=== PATIENT | female | born 1985 | race Caucasian/White ===

== ENCOUNTER → 2019-09-28 | Outpatient (CLI) | payer BC, SELFPAY ==
[2019-09-28 12:58] LABS: Hematocrit 39.1 % (37-47); Hemoglobin 11.9 g/dL (12.0-15.0); Mean Corp Hgb Conc 30.4 g/dL (32-36); Mean Corpuscular Hgb 27.6 pg (27.0-32.0); Mean Corpuscular Volume 90.7 fL (81-99); Mean Platelet Vol. 10.6 fl (6.2-12.0); Platelet Count 392 K/mm3 (150-450); RBC Distribution Width CV 12.6 % (11.6-14.6); RBC Distribution Width SD 41.4 fl (35.1-43.9); Red Blood Count 4.31 M/mm3 (4.2-5.4); White Blood Count 6.1 K/mm3 (4.4-11.0)
[2019-09-28 13:03] LABS: Vitamin B12 337 pg/mL (211-911); Vitamin D,25 Hydroxy 37.7 ng/mL
[2019-09-28 13:11] LABS: ALB/GLOB Ratio 0.9 RATIO (0.9-2.4); AST(SGOT) 7 U/L (15-37); Alanine Aminotransfer ALT/SGPT 15 U/L (13-56); Albumin, Serum 3.3 g/dL (3.2-5.0); Alkaline Phosphatase 72 U/L (45-117); Anion Gap 4 (5-15); BUN 14 mg/dL (7-18); BUN/Creat Ratio 21.4 RATIO (10-20); Calcium,Total 8.7 mg/dL (8.5-10.1); Chloride 107 mmol/L (98-107); Creatinine, Serum 0.65 mg/dL (0.55-1.02); EST Glomerular Filtration Rate 111 mL/min (>60); Est Glom Filt Rate - Afr Amer 134 mL/min (>60); Globulin 3.7 g/dL (2.2-4.2); Glucose 77 mg/dL (74-106); Potassium 4.6 mmol/L (3.5-5.1); Sodium Level 140 mmol/L (136-145); Thyroid Stim Hormone (TSH) 1.33 uIU/mL (0.358-3.74)
== END | disposition home or self-care (01) ==
LOC: MFPLAB 10:05
PROVIDERS: PCP Family Medicine; Referring Provider Family Medicine; Visit Provider Family Medicine
DX: R10.9 Unspecified abdominal pain (principal); R53.83 Other fatigue
CPT/HCPCS: 36415; 80053; 82306; 82607; 84443; 85027

== ENCOUNTER → 2019-10-05 | Outpatient (CLI) | payer BC, SELFPAY ==
--- NOTE | 2019-10-05 10:06 | US_ITS ---
STUDY: ABDOMINAL ULTRASOUND REASON FOR EXAM: Female, 34 years old. GENERAL ABD PAIN X 3 WK HX OF HERNIA REPAIR 25 YEARS AGO TECHNIQUE: Transabdominal ultrasound was performed with real-time and static anderson scale imaging. TECHNICAL QUALITY: Adequate. COMPARISON: None. FINDINGS: Liver: The liver measures 15.8 cm. There is normal echogenicity of the liver. The bile ducts are within normal limits. There is hepatic color flow. The direction of portal flow is hepatopetal. There is no demonstrated mass lesion. Portal vein measurement: Gallbladder: Normal distended gallbladder. The gallbladder wall measures 2.4 mm. There is a positive sonographic Knapp''s sign. There is no pericholecystic fluid. There are no gallstones. Common Bile Duct (C.B.D.): The common bile duct measures 5.4 mm. Pancreas: Normal size of the head, body and tail of the pancreas. There is normal echogenicity of the pancreas. There is no demonstrated pancreatic mass or cyst. Spleen: Normal size of the spleen. The spleen measures 10.5 cm x 4.9 cm x 4.8 cm. Right Kidney: Normal size of the right kidney. The right kidney measures 11 cm x 5.3 cm x 4.3 cm. Normal renal cortex. The right cortex measures 1.4 cm. There is no demonstrated renal mass or cyst. There is no right hydronephrosis. Left Kidney: Normal size of the left kidney. The left kidney measures 11.5 cm x 4.5 cm x 5.4 cm. Normal renal cortex. The left cortex measures 2.0 cm. There is no demonstrated renal mass or cyst. There is no left hydronephrosis. Aorta: Unremarkable I.V.C.: The IVC is patent. There is no ascites. US/Abdomen Complete IMPRESSION: Positive sonographic Knapp''s sign. Electronically Signed: Paco Cleary, at 12:45 EDT , Service support ,
== END | disposition home or self-care (01) ==
LOC: US 10:04
PROVIDERS: PCP Family Medicine; Referring Provider Family Medicine; Visit Provider Family Medicine
DX: R10.9 Unspecified abdominal pain (principal)
CPT/HCPCS: 76700

== ENCOUNTER → 2019-10-10 | Outpatient (CLI) | payer BC, SELFPAY ==
[2019-10-10 14:43] VITALS: BMI 36.9
[2019-10-10 15:43] LABS: Bacteria 0 SEEN /hpf (None Seen); Mucous, Urine 0 SEEN /hpf (<or=2+)
[2019-10-10 15:47] LABS: Color, Urine Yellow (Yellow); Glucose, Dipstick Normal (Normal); Ketone-Dipstick Negative (Negative); Leukocyte Esterase-Dipstick 25 /ul (Negative); Nitrite-Dipstick Negative (Negative); Occult Blood-Urine 250 /ul (Negative); Protein-Dipstick Negative (Negative); Urine Bilirubin Dipstick Negative (Negative); Urine Clarity Clear (Clear); Urine Urobilinogen Normal (Normal); Urine pH 6.5 (5.0 - 8.0)
[2019-10-10 16:10] LABS: Red Blood Cells-Urine 25-50 SEEN /hpf (0-5)
[2019-10-10 16:12] LABS: Squamous Epithelial Cells - UA 0-5 SEEN /hpf (5-10); White Blood Cells 0-5 SEEN /hpf (0-5)
== END | disposition home or self-care (01) ==
LOC: PAVLAB 15:21
PROVIDERS: PCP Family Medicine; Referring Provider Surgery; Visit Provider Surgery
DX: R11.0 Nausea (principal); R10.9 Unspecified abdominal pain
CPT/HCPCS: 81001; 87086

== ENCOUNTER → 2019-10-12 | Outpatient (CLI) | payer BC, SELFPAY ==
[2019-10-10 14:43] VITALS: BMI 36.9
[2019-10-17 16:56] LABS: Fats, Neutral Increased (.); Fats, Total Increased (.)
== END | disposition home or self-care (01) ==
LOC: LAB 12:24 → LABSPEC 12:27
PROVIDERS: PCP Family Medicine; Referring Provider Surgery; Visit Provider Surgery
DX: R10.9 Unspecified abdominal pain (principal); R11.0 Nausea; R19.7 Diarrhea, unspecified
CPT/HCPCS: 82274; 82705; 83630; 87177; 87209; 87493; 87506

== ENCOUNTER → 2019-10-17 | Outpatient (CLI) | payer BC, SELFPAY ==
[2019-10-10 14:43] VITALS: BMI 36.9
--- NOTE | 2019-10-17 16:39 | CT_ITS ---
STUDY: CT ABDOMEN AND PELVIS WITHOUT CONTRAST REASON FOR EXAM: Female, 34 years old. RUQ/RT FLANK PAIN X 3 WKS, NAUSEA, WORSE AFTER EATING RADIATION DOSAGE (If Supplied By Facility): CTDIvol = ( 12.83 ) mGy, DLP = ( 613.31 ) mGycm TECHNIQUE: Transaxial images were obtained from the dome of the diaphragm to the symphysis pubis without oral contrast, and without intravenous contrast. Sagittal and coronal images were reconstructed. Individualized dose optimization techniques were used for this CT. COMPARISON: Ultrasound from 10/05/2019 FINDINGS: The visualized lung bases are unremarkable. The visualized portions of the heart are within normal limits. Normal liver. Normal gallbladder and extrahepatic biliary system. Normal spleen. Normal pancreas. Normal bilateral adrenal glands. Normal right kidney. Normal left kidney. Normal visualized stomach. Normal small intestine. Normal colon. There is non-visualization of the appendix. Normal abdominal aorta. Normal inferior vena cava. Normal retroperitoneum. Normal urinary bladder. Normal abdominal wall. Normal osseous structures. CT/Abdomen/Pelvis without Cont IMPRESSION: No suspicious solid organ abnormality, specifically, no obstructive uropathy is noted. Although the appendix is not visualized, there is no CT evidence of an acute inflammatory process in the right lower quadrant. No pericolonic inflammatory stranding free fluid or adenopathy noted. Electronically Signed: Julian Xie MD at 17:08 EDT , Service support ,
== END | disposition home or self-care (01) ==
PROVIDERS: PCP Family Medicine; Referring Provider Surgery; Visit Provider Surgery
DX: R10.9 Unspecified abdominal pain (principal); R11.0 Nausea; R19.7 Diarrhea, unspecified
CPT/HCPCS: 74176

== ENCOUNTER → 2020-06-05 11:57 | Outpatient (CLI) | payer BC, SELFPAY ==
[2020-06-05 15:05] LABS: Erythrocyte Sedimentation Rate 19 mm/hr (0-30)
[2020-06-05 15:07] LABS: Absolute Lymphocyte Count 2.58 X10^3/uL (0.83-4.51); Absolute Neutrophil Count 5.2 X10^3/uL (2.0-7.7); Basophil# 0.04 X10^3/uL; Basophil% 0.5 % (0-1); Eosinophil# 0.19 X10^3/uL; Eosinophils% 2.2 % (0-5); Hematocrit 40.4 % (37-47); Hemoglobin 12.7 g/dL (12.0-15.0); Lymphocyte # 2.58 X10^3/ul (4.0); Lymphocyte % 30.2 % (19-41); Mean Corp Hgb Conc 31.4 g/dL (32-36); Mean Corpuscular Hgb 28.1 pg (27.0-32.0); Mean Corpuscular Volume 89.4 fL (81-99); Mean Platelet Vol. 10.3 fl (6.2-12.0); Monocyte# 0.53 X10^3/uL; Monocyte% 6.2 % (0-10); NRBC Flagged by Analyzer 0 % (0-5); Neutrophil # 5.18 X10^3/uL (2.7-7.7); Neutrophil % 60.7 % (47-70); Platelet Count 411 K/mm3 (150-450); RBC Distribution Width CV 12.6 % (11.6-14.6); RBC Distribution Width SD 41.3 fl (35.1-43.9); Red Blood Count 4.52 M/mm3 (4.2-5.4); White Blood Count 8.5 K/mm3 (4.4-11.0)
[2020-06-05 15:25] LABS: ALB/GLOB Ratio 0.9 RATIO (0.9-2.4); AST(SGOT) 10 U/L (15-37); Alanine Aminotransfer ALT/SGPT 23 U/L (13-56); Albumin, Serum 3.5 g/dL (3.2-5.0); Alkaline Phosphatase 78 U/L (45-117); Anion Gap 7 (5-15); BUN 11 mg/dL (7-18); BUN/Creat Ratio 15.4 RATIO (10-20); Calcium,Total 8.7 mg/dL (8.5-10.1); Chloride 104 mmol/L (98-107); Cholesterol 198 mg/dL (200); Creatinine, Serum 0.71 mg/dL (0.55-1.02); EST Glomerular Filtration Rate 100 mL/min (>60); Est Glom Filt Rate - Afr Amer 121 mL/min (>60); Globulin 3.9 g/dL (2.2-4.2); Glucose 81 mg/dL (74-106); High Density Lipoprotein 62 mg/dL; Potassium 3.7 mmol/L (3.5-5.1); Protein, Total 7.4 g/dL (6.4-8.2); Sodium Level 138 mmol/L (136-145); Triglycerides 125 mg/dL; Very Low Density Lipoprotein 25 mg/dL (5-40)
[2020-06-10 14:06] LABS: ANTINUCLEAR ANTIBODIES DIRECT Negative (Negative)
== END ==
PROVIDERS: PCP Family Medicine; Referring Provider Family Medicine; Visit Provider Family Medicine
DX: E66.9 Obesity, unspecified (principal); R59.1 Generalized enlarged lymph nodes
CPT/HCPCS: 36415; 80053; 80061; 85025; 85652; 86038; 86140

== ENCOUNTER → 2020-10-13 11:37 | Outpatient (CLI) | payer BC, SELFPAY ==
[2020-10-13 15:14] LABS: Absolute Lymphocyte Count 2.52 X10^3/uL (0.83-4.51); Absolute Neutrophil Count 3.9 X10^3/uL (2.0-7.7); Basophil# 0.06 X10^3/uL; Basophil% 0.8 % (0-1); Eosinophils% 2.8 % (0-5); Hematocrit 41.5 % (37-47); Hemoglobin 13.1 g/dL (12.0-15.0); Lymphocyte # 2.52 X10^3/ul (0.83-4.51); Lymphocyte % 34.7 % (19-41); Mean Corp Hgb Conc 31.6 g/dL (32-36); Mean Corpuscular Hgb 27.8 pg (27.0-32.0); Mean Corpuscular Volume 87.9 fL (81-99); Mean Platelet Vol. 10.2 fl (6.2-12.0); Monocyte# 0.54 X10^3/uL; Monocyte% 7.4 % (0-10); NRBC Flagged by Analyzer 0 % (0-5); Neutrophil # 3.92 X10^3/uL (2.7-7.7); Platelet Count 453 K/mm3 (150-450); RBC Distribution Width CV 12.1 % (11.6-14.6); Red Blood Count 4.72 M/mm3 (4.2-5.4); White Blood Count 7.3 K/mm3 (4.4-11.0)
[2020-10-13 15:28] LABS: Erythrocyte Sedimentation Rate 7 mm/hr (0-30)
[2020-10-13 15:45] LABS: AST(SGOT) 12 U/L (15-37); Alanine Aminotransfer ALT/SGPT 19 U/L (13-56); Albumin, Serum 3.7 g/dL (3.2-5.0); Alkaline Phosphatase 77 U/L (45-117); Anion Gap 4 (5-15); BUN 12 mg/dL (7-18); Calcium,Total 8.7 mg/dL (8.5-10.1); Chloride 106 mmol/L (98-107); Creatinine, Serum 0.75 mg/dL (0.55-1.02); EST Glomerular Filtration Rate 94 mL/min (>60); Est Glom Filt Rate - Afr Amer 113 mL/min (>60); Globulin 3.7 g/dL (2.2-4.2); Glucose 83 mg/dL (74-106); Potassium 4.1 mmol/L (3.5-5.1); Protein, Total 7.4 g/dL (6.4-8.2); Rheumatoid Factor < 10.0 IU/mL (<15); Sodium Level 138 mmol/L (136-145)
[2020-10-13 16:43] LABS: CRP > 500.00 mg/L (0.0-3.0)
[2020-10-15 14:43] LABS: ANTINUCLEAR ANTIBODIES DIRECT Negative (Negative)
== END ==
PROVIDERS: PCP Family Medicine; Visit Provider Family Medicine
DX: R79.82 Elevated C-reactive protein (CRP) (principal); R59.1 Generalized enlarged lymph nodes
CPT/HCPCS: 36415; 80053; 85025; 85652; 86038; 86140; 86431

== ENCOUNTER → 2020-10-17 13:19 | Outpatient (CLI) | payer BC, SELFPAY ==
--- NOTE | 2020-10-17 13:23 | CT_ITS ---
STUDY: CT ABDOMEN AND PELVIS WITH CONTRAST REASON FOR EXAM: Female, 35 years old. ABD PAIN RADIATION DOSAGE (If Supplied By Facility): CTDIvol = ( 11.485 ) mGy, DLP = ( 1059.56 ) mGycm TECHNIQUE: Transaxial images were obtained from the dome of the diaphragm to the symphysis pubis with oral contrast. Oral and amp; IV Gastrografin and amp; 100mL Isovue-[id number] was administered. Sagittal and coronal images were reconstructed. Individualized dose optimization techniques were used for this CT. COMPARISON: None. FINDINGS: The visualized lung bases are unremarkable. The visualized portions of the heart are within normal limits. Normal liver. Normal gallbladder and extrahepatic biliary system. Normal spleen. Normal pancreas. Normal bilateral adrenal glands. Normal right kidney. Normal left kidney. Normal visualized stomach. Normal small intestine. Normal colon. The appendix is visualized and appears normal. Normal abdominal aorta. Normal inferior vena cava. Normal retroperitoneum. Normal urinary bladder. Normal abdominal wall. Normal osseous structures. CT/Abdomen/Pelvis WITH Contrast IMPRESSION: Normal enhanced CT of the abdomen and pelvis. Electronically Signed: Dinesh Portillo MD at 15:48 EDT Tel , Service support ,
== END ==
PROVIDERS: PCP Family Medicine; Referring Provider Family Medicine; Visit Provider Family Medicine
DX: R10.9 Unspecified abdominal pain (principal)
CPT/HCPCS: 74177; Q9967; A4216

== ENCOUNTER → 2020-10-20 09:14 | Outpatient (CLI) | payer BC, SELFPAY ==
[2020-09-09 06:43] VITALS: BMI 36.9
--- NOTE | 2020-10-20 09:19 | US_ITS ---
STUDY: Soft tissue neck ULTRASOUND REASON FOR EXAM: Female, 35 years old. neck mass TECHNIQUE: Ultrasound evaluation of the soft tissue neck was performed with real-time and static anderson-scale imaging. COMPARISON: None. FINDINGS: Multiple longitudinal and transverse ultrasound images of the left supraclavicular area demonstrate multiple small normal-sized lymph nodes measuring up to 8 mm in diameter. US/Head/Neck Soft Tissue IMPRESSION: Ultrasound confirms multiple normal sized left supraclavicular lymph nodes which may be reactive. Electronically Signed: Dinesh Portillo MD at 10:50 EDT Tel , Service support ,
== END ==
PROVIDERS: PCP Family Medicine; Referring Provider Surgery; Visit Provider Surgery
DX: R22.2 Localized swelling, mass and lump, trunk (principal); R89.9 Unspecified abnormal finding in specimens from other organs, systems and tissues
CPT/HCPCS: 76536

== ENCOUNTER → 2020-10-31 09:22 | Outpatient (CLI) | payer BC, SELFPAY ==
[2020-10-21 14:53] VITALS: BMI 36.9
[2020-10-31 10:29] LABS: Color, Urine Yellow (Yellow); Glucose, Dipstick Normal (Normal); Ketone-Dipstick Negative (Negative); Leukocyte Esterase-Dipstick Negative /ul (Negative); Nitrite-Dipstick Negative (Negative); Occult Blood-Urine Negative /ul (Negative); Protein-Dipstick Negative (Negative); Urine Bilirubin Dipstick Negative (Negative); Urine Clarity Clear (Clear); Urine Urobilinogen Normal (Normal)
[2020-10-31 10:43] LABS: Protein, Urine (Random) 14.9 mg/dL (<11.9); Protein:Creat Ratio 184 mg/g CRE (0-200)
[2020-10-31 11:15] LABS: Hepatitis B Surface Antibody Reactive; Hepatitis B Surface Antigen Non-Reactive (Nonreactive); Hepatitis C Antibody Non-Reactive (Nonreactive)
[2020-11-05 11:32] LABS: CCP IgG Antibodies 5 units (0-19)
== END ==
PROVIDERS: PCP Family Medicine; Referring Provider Family Medicine; Visit Provider Internal Medicine Rheumatology
DX: I87.2 Venous insufficiency (chronic) (peripheral) (principal); R79.82 Elevated C-reactive protein (CRP)
CPT/HCPCS: 36415; 81002; 82570; 84156; 86140; 86200; 86706; 86803; 87340

== ENCOUNTER → 2021-10-05 | Outpatient (CLI) | payer BC, SELFPAY ==
[2021-10-05 18:33] LABS: Cholesterol 202 mg/dL (200); High Density Lipoprotein 45 mg/dL; Thyroid Stim Hormone (TSH) 2.04 uIU/mL (0.358-3.74); Triglycerides 178 mg/dL; Very Low Density Lipoprotein 36 mg/dL (5-40)
[2021-10-05 19:38] LABS: Hemoglobin A1c 5.4 % (3.8-5.6)
== END | disposition home or self-care (01) ==
LOC: MFPLAB 15:57
PROVIDERS: PCP Family Medicine; Visit Provider Family Medicine
DX: Z13.29 Encounter for screening for other suspected endocrine disorder (principal); Z13.220 Encounter for screening for lipoid disorders
CPT/HCPCS: 36415; 80061; 83036; 84443

== ENCOUNTER → 2022-09-22 | Outpatient (CLI) | payer BC, SELFPAY ==
[2022-09-22 16:55] LABS: Bacteria 0 SEEN /hpf (None Seen); Mucous, Urine 0 SEEN /hpf (<or=2+)
[2022-09-22 17:16] LABS: Color, Urine Yellow (Yellow); Glucose, Dipstick Normal (Normal); Ketone-Dipstick Negative (Negative); Leukocyte Esterase-Dipstick 500 /ul (Negative); Nitrite-Dipstick Negative (Negative); Occult Blood-Urine 250 /ul (Negative); Protein-Dipstick 30 mg/dl (Negative); Urine Bilirubin Dipstick Negative (Negative); Urine Clarity Sl. Cloudy (Clear); Urine Urobilinogen Normal (Normal); Urine pH 6.5 (5.0 - 8.0)
[2022-09-22 17:24] LABS: Amorphous Sediment 1+ URATE; Red Blood Cells-Urine 10-25 SEEN /hpf (0-5); Squamous Epithelial Cells - UA 0-5 SEEN /hpf (5-10); White Blood Cells 25-50 SEEN /hpf (0-5)
== END | disposition home or self-care (01) ==
PROVIDERS: PCP Family Medicine; Referring Provider Physician Assistant Surgical; Visit Provider Physician Assistant Surgical
DX: R30.0 Dysuria (principal)
CPT/HCPCS: 81001; 87077; 87086; 87088; 87186

== ENCOUNTER → 2022-12-27 | Outpatient (CLI) | payer BC, SELFPAY ==
[2022-12-27 12:23] LABS: Color, Urine Yellow (Yellow); Glucose, Dipstick Normal (Normal); Ketone-Dipstick 5 mg/dl (Negative); Leukocyte Esterase-Dipstick 100 /ul (Negative); Nitrite-Dipstick Negative (Negative); Occult Blood-Urine 150 /ul (Negative); Protein-Dipstick 30 mg/dl (Negative); Urine Bilirubin Dipstick Negative (Negative); Urine Clarity Clear (Clear); Urine Urobilinogen Normal (Normal)
[2022-12-27 12:57] LABS: White Blood Cells 25-50 SEEN /hpf (0-5)
[2022-12-27 12:58] LABS: Bacteria 1+ /hpf (None Seen); Mucous, Urine 1+ /hpf (<or=2+); Red Blood Cells-Urine 5-10 SEEN /hpf (0-5); Squamous Epithelial Cells - UA 0-5 SEEN /hpf (5-10)
== END | disposition home or self-care (01) ==
LOC: LABSPEC 12:02
PROVIDERS: PCP Family Medicine; Referring Provider Physician Assistant; Visit Provider Physician Assistant
DX: N39.0 Urinary tract infection, site not specified (principal)
CPT/HCPCS: 81001; 87086; 87088

== ENCOUNTER → 2024-01-30 | Outpatient (CLI) | payer BC, SELFPAY | END | disposition home or self-care (01) | LOC: LABSPEC 09:56 | PROVIDERS: PCP Family Medicine; Referring Provider Nurse Practitioner Family; Visit Provider Nurse Practitioner Family | DX: R30.0 Dysuria (principal) | CPT/HCPCS: 87077; 87086; 87088; 87186 ==

== ENCOUNTER → 2024-10-08 | Outpatient (CLI) | payer BC, SELFPAY | END | disposition home or self-care (01) | LOC: LABSPEC 14:00 | PROVIDERS: PCP Family Medicine; Visit Provider Physician Assistant | DX: N30.00 Acute cystitis without hematuria (principal) | CPT/HCPCS: 87077; 87086; 87088; 87186 ==

== ENCOUNTER → 2024-10-16 | Outpatient (CLI) | payer BC, SELFPAY ==
--- NOTE | 2024-10-16 13:09 | RAD_ITS ---
PROCEDURE: ACUTE ABDOMEN INC CHEST 10/16/2024 REASON FOR EXAM: RIGHT FLANK PAIN TECHNIQUE: ACUTE ABDOMEN INC CHEST, five view. COMPARISON: [employer] from the CT examination of 10/17/2020 RAD/Acute Abdomen Inc Chest IMPRESSION: The chest demonstrates clear lungs throughout. No pleural effusion or pneumoth orax is seen. The cardiomediastinal silhouette is within the normal range. A moderately large stool burden is seen. The bowel-gas pattern is otherwise un remarkable. Although limited by overlying stool, no urinary tract calculus is identified Mild degenerative changes of the spine are seen Reading Location: [place] [id number]
--- OUTSIDE RECORDS SUMMARY | 2024-10-16 22:29 | XMS RPT_ITS | CCD ---
Author Organization [facility] Inform ion Partnership [facility] Care Team Providers Care Multicultural Services Librarian Name Role Phone [place] [employer] Elzbieta K Unavailable Unavailable [place] YUSUF Elzbieta K Unavailable Unavailable Unavailable Primary Care Provider Dr. Mata Nevarez Primary Care Provider Dr. Mata Morrison Referring Provider JOCY Henry Attending Provider JOCY Wilcox Attending Provider Unavailable Primary Care Provider Unavaillynda e Unavailable Primary Care Provider UnavailDOLORES Zabala Referring Unavailable DOLORES HODGE Attending Unavailable Dr. Mata Morrison MD Primary Care Provider Dr. Mata Morrison MD Referring Provider Dat Wilcox Attending Provider Mata Morrison Referring Unavailable Mata Morrison Primary Care Unavailable Mata Mtz NP Attending Unavailable Mata Morrison Primary Care Unavailable Dat Wilcox Attending Unavailable Mata Morrison Primary Care Unavailable Mata Mtz NP Referring Unavailable Mata Mtz NP Attending Unavailable Mata Morrison Referring Unavailable Mata Morrison Primary Care Unavailable Dat Wilcox Attending Unavailable Medications Current Medications Medication Drug Class(es) Dates Sig (Normalized) Sig (Original) Ethinyl Estradiol / norgestimate (15 sources) Progestin, Estrogen Start: 03-07-2024 take 1 tablet by mouth once daily norgestimate 0.25 mg-ethinyl estradiol 35 mcg (SPRINTEC) 0.25-35 mg-mcg per tablet Indications: General counseling for prescription of oral contraceptives Take 1 tablet by mouth once daily. 28 tablet 12 03/07/2024 Active Start: 02-11-2023 End: 03-07-2024 take 1 tablet by mouth once daily norgestimate 0.25 mg-ethinyl estradiol 35 mcg (SPRINTEC) 0.25-35 mg-mcg per tablet Indications: General counseling for prescription of oral contraceptives Take 1 tablet by mouth once daily. 28 tablet 12 02/11/2023 03/07/2024 Discontinued Start: 02-11-2023 take 1 tablet by luz elena th once daily norgestimate 0.25 mg-ethinyl estradiol 35 mcg (SPRINTEC) 0.25-35 mg-mcg per tablet Indications: General counseling for prescription of oral contraceptives Take 1 tablet by mouth once daily. 28 tablet 12 02/11/2023 Active Start: 02-05-2022 End: 02-11-2023 take 1 tablet by mouth once daily norgestimate 0.25 mg-ethinyl estradiol 35 mcg (SPRINTEC) 0.25-35 mg-mcg per tablet Indications: General counseling for prescription of oral contraceptives Take 1 tablet by mouth once daily. 28 tablet 12 02/05/2022 02/11/2023 Discontinued Start: 01-01-2022 take 1 tablet by luz elena th once daily norgestimate 0.25 mg-ethinyl estradiol 35 mcg (SPRINTEC) 0.25-35 mg-mcg per tablet Indications: General counseling for prescription of oral contraceptives Take 1 tablet by mouth once daily. 28 tablet 1 01/01/2022 Active Start: 01-26-2021 End: 01-01-2022 take 1 tablet by mouth once daily norgestimate 0.25 mg-ethinyl estradiol 35 mcg (SPRINTEC) 0.25-35 mg-mcg per tablet Indications: General counseling for prescription of oral contraceptives Take 1 tablet by mouth once daily. 28 tablet 11 01/26/2021 01/01/2022 Discontinued Start: 10-10-2019 End: 10-08-2024 Norgestimate-Ethinyl Estradi ol 0.25-35 mg-mcg tablet Discontinued 1 {tbl} PO DAILY October 10, 2019 12:00am October 08, 2024 12:37pm Start: 10-10-2019 take 1 tablet by luz elena th once daily Norgestimate-Ethinyl Estradiol Active 1 TABLET PO DAILY October 10, 2019 12:00am Start: 06-21-2016 End: 07-19-2016 take 1 tablet by mouth once daily SPRINTEC 28 0.25-35 MG-MCG TABS 1 tab po daily NORGESTIMATE-ETH ESTRADIOL [id number] Elzbieta Ko [facility] Comment on above: Take 1 tablet by luz elena once daily. L.ACID/L.CASEI/B.BIF/B.AFIA/F OS (PROBIOTIC BLEND ORAL) (7 sources) L.ACID/L.CASEI/B .BIF/B.AFIA /FOS (PROBIOTIC BLEND ORAL) Take by mouth. Active L.ACID/L.CASEI/B .BIF/B.AFIA/FOS (PROBIOTIC BLEND ORAL) Take by mouth. 0 Active Comment on above: Take by mouth. nitrofurantoin, macrocrystals 25 mg / nitrofurantoin, monohydrate 75 mg oral capsule (11 sources) Nitrofuran Antibacterial Start: 025 take 1 capsule by mouth every twelve hours at mealtime Nitrofurantoin Monohyd/M-Cryst (Macrobid) 100 mg capsule Active 100 mg PO Q12H 10 5 0 October 08, 2024 12:00am October 12, 2024 12:00am must administer with a meal/food Start: 01-29-2024 End: 02-05-2024 take 1 capsule by mouth every twelve hours at mealtime Nitrofurantoin Monohyd/M-Cryst (Macrobid) 100 mg capsule Discontinued 100 mg PO Q12H 14 7 0 January 29, 2024 1:00am February 04, 2024 1:00am February 05, 2024 1:09am must administer with a meal/food Start: 12-27-2022 End: 01-01-2023 take 1 capsule by mouth every twelve hours at mealtime Nitrofurantoin Monohyd/M-Cryst (Macrobid) 100 mg capsule Discontinued 100 mg PO Q12H 10 5 0 December 27, 2022 12:00am December 31, 2022 12:00am January 01, 2023 12:25am must administer with a meal/food Start: 09-21-2022 End: 09-28-2022 take 1 capsule by mouth every twelve hours at mealtime Nitrofurantoin Monohyd/M-Cryst 100 mg capsule Discontinued 1 NMA PO Q12H 14 7 0 September 21, 2022 12:00am September 27, 2022 12:00am September 28, 2022 12:03am administer with a meal/food; swallow whole; do not open, crush, dissolve , or chew Completed/Discontinued Medications Medication Drug Class(es) Dates Sig (Normalized) Sig (Original) amoxicillin 500 mg oral capsule (2 sources) Penicillin-class Antibacterial Start: 04-15-2023 End: 04-25-2023 take 1 capsule by mouth three times daily Amoxicillin 500 mg capsule Discontinued 500 mg PO THREE TIMES A DAY 30 10 0 April 15, 2023 1:00am April 24, 2023 1:00am April 25, 2023 1:04am azithromycin 250 mg oral tablet (4 sources) Macrolide Antimicrobial Start: 03-27-2022 End: 12-27-2022 Azithromycin (Zithromax Z-Richard) 250 mg tablet Discontinued 0 PO .COMPLEX 6 0 March 27, 2022 1:00am December 27, 2022 7:41am For 250 mg dose pack: take 500 mg today (day 1), then 250 mg for 4 days (days 2-5) PO biotin 1 mg chewable tablet (6 sources) Start: 10-10-2019 End: 09-09-2020 take 1 tablet by mouth once daily Biotin 1,000 mcg tablet,chewable Discontinued 1000 ug PO DAILY October 10, 2019 12:00am September 09, 2020 6:40am BIOTIN MAXIMUM S TRENGTH 73729 MCG TABS BIOTIN [id number] Elzbieta Ko [employer] brompheniramine maleate 0.4 mg/ml / dextromethorphan hydrobromide 2 mg/ml / pseudoephedrine hydrochloride 6 mg/ml oral solution (1 source) alpha-Adrenergic Agonist, Uncompetitive R-xfkoin-U-aspartate Receptor Antagonist, Sigma-1 Agonist Start: 03-06-2019 End: 01-01-2022 take 5 mL by mouth every six hours as needed for cough and cough Xqgjlnohkkqaotv-Xfsvcrngb-KI (BROMFED DM) 2-30-10 mg/5 mL syrup Indications: Cough Take 5 mL by mouth four times daily as needed. 118 mL 0 03/06/2019 01/01/2022 Discontinued Comment on above: Take 5 mL by mouth f our times daily as needed. CALCIUM POLYCARBOPHIL TABS (2 sources) FIBER TABS 8 - 1 0 per day CALCIUM POLYCARBOPHIL TABS [id number] Elzbieta Ko CMA hydrocortisone 10 mg/ml / neomycin 3.5 mg/ml / polymyxin b 16899 unt/ml otic solution (2 sources) Aminoglycoside Antibacterial, Polymyxin-class Antibacterial, Corticosteroid Start: 01-29-2024 End: 02-08-2024 Eqfnnjow-Tidczkzri-Xj 3.5-10,000-1 mg/mL-unit/mL-% solution Discontinued 4 NMA OTIC Q8H 10 10 0 January 29, 2024 1:00am February 07, 2024 1:00am February 08, 2024 1:17am Methylcellulose (1 source) End: 01-01-2022 METHYLCELLULOSE (FIBER THERAPY LAXATIVE ORAL) Take by mouth. 0 01/01/2022 Discontinued Comment on above: Take by mouth. MULTIPLE VITAMIN (1 source) DAILY MULTIPLE V ITAMINS TABS MULTIPLE VITAMIN [id number] Elzbieta Cardonas [employer] MULTIPLE VITAMIN (1 source) DAILY MULTIPLE V ITAMINS TABS MULTIPLE VITAMIN [id number] Elzbieta Cardonas [employer] Multivitamin preparation (9 sources) Start: 10-10-2019 End: 09-09-2020 take 1 tablet by mouth once daily Multivitamin Discontinued 1 TABLET PO DAILY October 10, 2019 12:00am September 09, 2020 6:40am multivitamin (MU LTIPLE VITAMIN ORAL) MULTIPLE VITAMIN DAILY MULTIPLE VITAMINS TABS MULTIPLE VITAMIN [id number] Elzbieta Cardonas [employer] [place] Infectious Disease (24536) Active multivitamin (MU LTIPLE VITAMIN ORAL) MULTIPLE VITAMIN DAILY MULTIPLE VITAMINS TABS MULTIPLE VITAMIN [id number] Elzbieta Fry Crooks [employer]ER [place] Infectious Disease (83861) 0 Active Comment on above: MULTIPLE VITAMIN JASON LY MULTIPLE VITAMINS TABS MULTIPLE VITAMIN [id number] Elzbieta Fry Crooks [employer] [place] Infectious Disease (05054) Multivitamin tablet (2 sources) Start: 2019 End: 2020 Multivitamin tablet Discontinued 1 {tbl} PO DAILY October 10, 2019 12:00am September 09, 2020 6:40am mupirocin 0.02 mg/mg topical ointment (1 source) RNA Synthetase Inhibitor Antibacterial Start: 2018 End: 2021 mupirocin (BACTROBAN) 2 % ointment Indications: Skin infection Apply 1 application to affected area three times daily. 30 g 0 11/06/2018 01/01/2022 Discontinued Comment on above: Apply 1 application to affected area three times daily. NORGESTIMATE-ETH ESTRADIOL (1 source) Start: 2016 End: 2016 take 1 tablet by mouth once daily SPRINTEC 28 0.25-35 MG-MCG TABS 1 tab po daily NORGESTIMATE-ETH ESTRADIOL [id number] Elzbieta Ko CMA omeprazole 20 mg delayed release oral capsule (4 sources) Proton Pump Inhibitor Start: 2019 End: 2020 take 1 capsule by mouth once daily Omeprazole 20 mg capsule,delayed release(DR/EC) Discontinued 20 mg PO DAILY October 10, 2019 12:00am September 09, 2020 6:40am phenazopyridine hydrochloride 100 mg oral tablet (4 sources) Start: 2022 End: 2023 take 1 tablet by mouth three times daily at mealtime for pain Phenazopyridine (Pyridium) 100 mg tablet Discontinued 100 mg PO THREE TIMES A DAY as needed for pain 7 0 September 21, 2022 12:00am April 15, 2023 9:28am administer with a full glass of water after each meal 24 hr phentermine 7.5 mg / topiramate 46 mg extended release oral capsule (2 sources) Sympathomimetic Amine Anorectic Start: 2023 End: 2024 Phentermine-Topiramat e (Qsymia) 7.5-46 mg capsule, ER multiphase 24 hr Discontinued 1 NMA PO daily January 29, 2024 1:00am October 08, 2024 12:37pm Saccharomyces boulardii (2 sources) take 1 capsule by mouth once daily PROBIOTIC CAPS 1 po daily SACCHAROMYCES BOULARDII CAPS [id number] Elzbieta Ko [employer] take 1 capsule by mouth once jason ly PROBIOTIC CAPS 1 po daily SACCHAROMYCES HAMIDAULARDII CAPS [id number] Elzbieta Ko [employer] Problems Active Problems Problem Classification Problem Date Documented Da te Episodic/Chronic Abdominal pain (8 sources) Right upper quadrant pain; Translations: [Right upper quadrant pain] 10-21-2020 Episodic Contraceptive and procreative management (8 sources) Patient encounter status; Translations: [Encounter for other general counseling and advice on contraception] Onset: 03-07-2024 Episodic Hemorrhoids (11 sources) Internal hemorrhoids; Translations: [Other hemorrhoids] Onset: 09-25-2009 09-25-2009 Episodic Immunizations and screening for infectious disease (1 source) Encounter for screening for human papillomavirus (HPV); Translations: [Screening for HPV (human papillomavirus)] Onset: 03-07-2024 Episodic Nausea and vomiting (4 sources) Nausea; Translations: [Nausea] 10-21-2020 Episodic Other gastrointestinal disorders (4 sources) Diarrhea; Translations: [Diarrhea, unspecified] 10-21-2020 Episodic Other screening for suspected conditions (not mental disorders or infectious disease) (9 sources) Elevated C-reactive protein; Translations: [Elevated C-reactive protein (CRP)] Onset: 03-07-2024 10-21-2020 Episodic Other screening for suspected conditions (not mental disorders or infectious disease) (2 sources) No current problems or disability 08-05-2016 Other upper respiratory infections (4 sources) Upper respiratory infection; Translations: [Acute upper respiratory infection, unspecified] 03-27-2022 Episodic Residual codes; unclassified (4 sources) History of hernia repair; Translations: [Other specified postprocedural states] 10-21-2020 Episodic Residual codes; unclassified (6 sources) Family history of breast cancer; Translations: [Family history of malignant neoplasm of breast] Onset: 03-07-2024 03-07-2024 Episodic Residual codes; unclassified (1 source) Family history of malignant neoplasm of breast; Translations: [Family history of malignant neoplasm of breast] Onset: 03-07-2024 Episodic Sprains and strains (4 sources) Thumb injury ; Translations: [Strain of right thumb] 10-21-2020 Episodic Urinary tract infections (11 sources) Cystitis; Translations: [Cystitis, unspecified without hematuria] Onset: 10-11-2024 09-21-2022 Episodic Past or Other Problems Problem Classification Problem Date Documented Da te Episodic/Chronic Genitourinary symptoms and ill-defined conditions (1 source) Dysuria; Translations: [Dysuria] Onset: 02-28-2024 Episodic Nonmalignant breast conditions (5 sources) Discharge from nipple; Translations: [Nipple discharge] Onset: 01-30-2014 Resolved: 07-13-2016 07-13-2016 Episodic Other complications of (5 sources) Excessive growth affecting management of mother; Translations: [Maternal care for excessive growth, unspecified trimester, not applicable or unspecified] Onset: 12-05-2007 Resolved: 12-29-2007 12-29-2007 Episodic Other and delivery including normal (5 sources) Normal in primigravida; Translations: [Encounter for supervision of normal first , unspecified trimester] Onset: 04-11-2007 Resolved: 12-29-2007 12-29-2007 Episodic Results Test Name Value Interpretation Reference Range Facility Urine Cultureon 10-10-2024 [facility] Escherichia coli [place] Count >100,000 Escherichia coli: REACTION Ampicillin Islt TAJ 4 Ampicillin+Sulbac Islt TAJ <=2 S Cefepime Islt TAJ <=0.12 S cefTRIAXone Islt TAJ <=0.25 S Ciprofloxacin Islt TAJ <=0.06 S B-Lactamase Extended Susc Islt NEG Gentamicin Islt TAJ <=1 S levoFLOXacin Islt TAJ <=0.12 S Meropenem Islt TAJ <=0.25 S Nitrofurantoin Islt TAJ <=16 S Pip+Tazo Islt TAJ <=4 S TMP SMX Islt TAJ <=20 S Normal [facility] Comment on above: Performed By: #### M [id number] #### [facility] [address] [place], [address] Urgent Care Visit Reporton 0 10-08-2024 Urgent Care Visit Report [facility] [address], [address] [place], [place] [address] OFFICE VISIT Date of Service: 10/08/24 MR#: [id number] Acct: [id number] Name: OZIEL THOMAS Rep #: [id number] : 1985 Provider: JOCY Carter Age/Sex: 39/F Location: [facility] Status: Signed Intake Vital Signs 01/29/24 10:00 10/08/24 12:43 Height 5 ft 2 in Weight: 162 lb 182 lb BMI 29.6 BP 128/84 H 120/60 Blood Pressure Location Lt brachial Lt brachial Position Sitting Sitting Respiration 16 14 Pulse 90 68 Pulse Source Monitor Monitor Temp 98.2 F 98.4 F Temp Source Oral Pulse Oximetry (%) 98 99 Oxygen Delivery Method room air room air Intake Visit Reasons: CONCERN FOR UTI Chief Complaint: dysuria and lt ear concerns Allergies No Known Allergies Allergy (Verified 10/08/24 12:34) Medications ???Medication ???Instructions ???Recorded ???Confirmed ???Type nitrofurantoin 100 mg PO Q12H 5 days #10 caps 10/08/24 Rx monohydrate/macrocr ystals 100 mg capsule (Macrobid) PFSH Medical History UTI (urinary tract infection) Elevated C-reactive protein (CRP) Hemorrhoids Right upper quadrant abdominal pain with positive Knapp's Sign Diarrhea Nausea Abdominal pain Surgical History History of Hx of hernia repair Family History Mother Skin cancer Ovarian cancer Father Bladder cancer Social History Smoking Status: Never smoker second hand exposure: No alcohol intake: never substance use type: does not use caffeine: Yes what type of physical activity do you participate in: walking frequency: 3-4 times per week HPI HPI Chief Complaint: dysuria and lt ear concerns Details: OZIEL THOMAS, is a 39 F who presents to the office today for initial evaluation at the [facility] for approximately 1-day history of dysuria and urinary frequency with suprapubic pressure. No complaints of fever, chills, sweats, lightheadedness/diz ziness, nausea/vomiting, or chest pain/shortness of breath/dyspnea on exertion/back pain. No changes in color/ character of stool; cloudy urine. No ulns-nmh-vyfkmkb products taken to assist. No other associated symptoms and no alleviating/aggrava ting factors. ROS Const Constitutional: No other (As above) Exam Const General: cooperative, healthy appearing and no acute distress Orientation: alert, awake and oriented x3 Chest Chest palpation inspection: normal inspection of the chest Resp Effort Inspection: normal respiratory effort and able to speak in complete sentences Auscultation: Bilateral: Clear to Auscultation Cardio Palpation: normal PMI Rate: regular rate Rhythm: regular rhythm Heart Sounds: S1 normal, S2 normal, no gallops, no murmurs and no rubs Pulses: radial pulses present GI Inspection: normal to inspection Palpation: soft and tender suprapubic (Patient describes upon self-palpation) General: No CVA tenderness Skin General: no rashes or lesions noted Neuro General: patient alert, patient awake and patient oriented x3 Cognition: normal cognition Speech: speech normal Psych Appearance: grossly normal Mental Status: mental status grossly normal Mood: congruent mood Affect: normal affect Speech and Movement: speech and movement normal Attitude: cooperative Diagnoses Urinary tract infection N39.0 Assessment and Plan Assessment and Plan (1) Urinary tract infection: Status: Acute Plan: See POC results; urine sent to lab for C/S. Macrobid as prescribed today. Supportive measures as instructed today. Follow-up with PCP in 3 to 5 days should symptoms not improve, sooner should symptoms only worsen or any other concerns develop. Patient states acknowledging understanding all the above. Results POC Urinalysis Dip (Clinic) Office Urine Color STRAW Last Edit by Prachi Zamora MA on 10/08/24 12:50 Office Urine Clarity Cloudy Last Edit by Prachi Zamora MA on 10/08/24 12:50 Office Urine Glucose Negative Last Edit by Prachi Zamora MA on 10/08/24 12:50 Office Urine Ketones Negative Last Edit by Prachi Zamora MA on 10/08/24 12:50 Off Ur Spec [place] 1.005 Last Edit by Prachi Zamora MA on 10/08/24 12:50 Office Urine pH 6.5 Last Edit by Prachi Zamora MA on 10/08/24 12:50 Office Urine Bilirubin Negative Last Edit by Prachi Zamora MA on 10/08/24 12:50 Office Urine Urobilinogen 0.2 mg/dL Last Edit by Prachi Zamora MA on 10/08/24 12:50 Office Urine Blood Moderate Last Edit by Prachi Zamora MA on 10/08/24 12:50 Office Urine Blood Hemolyzed Large Last Edit by Prachi Zamora MA (more content not included)... Normal [facility] Urine cultureOrdered By: Familia Guo on 10-08-2024 Bacteria identified Cx Nom (U) Escherichia coli Abnormal [facility] CNPNon 05-21-2024 KENJI Telephone (OBGYWM) ---- OZIEL THOMAS ([id number]) 1985 F Date Time Provider Department 05/21/24 DOLORES HODGE During your visit today, we recorded the following information about you: Deisy Washington RN 05/21/2024 10:21 AM Signed ----- Message from Dolores Hodge APRN.CNP sent at 05/21/2024 7:37 AM EST ----- Please call patient Dolores Hodge APRN.CNP ----- Message ----- From: Jalyn Holland Sent: 05/21/2024 6:18 AM EST To: Dolores Hodge APRN.CNP Recently, the patient listed above had a breast imaging exam which recommended additional imaging of an abnormality for further workup. As of this date we are unable to document whether this has been completed. Please have your patient call [phone] or ext. [phone] to schedule a breast imaging exam appointment for additional evaluation. Please ensure that you have placed either an electronic or hard copy order for the additional exam recommended from the screening mammogram report. We understand that this is an inconvenience to you and greatly appreciate your cooperation. If your patient has already scheduled an appointment, please disregard this letter. Sincerely, [facility] Deisy Washington RN 05/22/2024 10:10 AM Signed Left message for patient to call office or check SHAPE message. FAHAD Escobar Trisha, RN 05/23/2024 2:27 PM Signed 3rd attempt. Patient has not read ClientShowhart message. Left message for patient to call office or check ClientShowhart message. Letter sent. Deisy Washington RN Allergies As of Date: 05/21/2024 (No Known Allergies) Date Reviewed: 03/07/2024 Reviewed by: Dolores Hodge APRN.IMPORT MANAGER - Fully Assessed Reason for Visit: Radiology Mammogram [1485] Prescriptions as of 05/23/2024 - norgestimate 0.25 mg-ethinyl estradiol 35 mcg (SPRINTEC) 0.25-35 mg-mcg per tablet Take 1 tablet by mouth once daily. - multivitamin (MULTIPLE VITAMIN ORAL) MULTIPLE VITAMIN DAILY MULTIPLE VITAMINS TABS MULTIPLE VITAMIN [id number] Elzbieta Ko [facility] Infectious Disease (90939) - L.ACID/L.CASEI/B.BI F/B.AFIA/FOS (PROBIOTIC BLEND ORAL) Take by mouth. Problem List As Of Date 05/21/2024 Noted Resolved SUPERVIS NORMAL 1ST PREG [Z34.00] 04/11/2007 12/29/2007 EXCESS FET GRTH-ANTEPART [O36.60X0] 12/05/2007 12/29/2007 Hemorrhoids, Internal [K64.8] 09/25/2009 Nipple discharge [N64.52] 01/30/2014 07/13/2016 Family history of malignant neoplasm of breast *03/07/2024 Letter Text Encounter Status:Closed by DOLORES HODGE on 05/23/24 Normal [facility] Tash 03-12-2024 CNPN Telephone (OBGYWM) ---- OZIEL THOMAS ([id number]) 1985 F Date Time Provider Department 03/12/24 JENAE ROSA OBJEANCARLOSWMarybel During your visit today, we recorded the following information about you: Allergies As of Date: 03/12/2024 (No Known Allergies) Date Reviewed: 03/07/2024 Reviewed by: Dolores Hodge APRN.IMPORT MANAGER - Fully Assessed Reason for Visit: Orders [681] Primary Visit Diagnosis:Abnormal mammogram [R92.8] Order(s):US BREAST LTD LEFT [[id number]] Order #: [id number] FUTURE ERNA DIAGNOSTIC LEFT [[id number]] Order #: [id number] FUTURE Prescriptions as of 03/12/2024 - norgestimate 0.25 mg-ethinyl estradiol 35 mcg (SPRINTEC) 0.25-35 mg-mcg per tablet Take 1 tablet by mouth once daily. - multivitamin (MULTIPLE VITAMIN ORAL) MULTIPLE VITAMIN DAILY MULTIPLE VITAMINS TABS MULTIPLE VITAMIN [id number] Elzbieta Ko [facility] Infectious Disease (16254) - L.ACID/L.CASEI/B.BI F/B.AFIA/FOS (PROBIOTIC BLEND ORAL) Take by mouth. Problem List As Of Date 03/12/2024 Noted Resolved SUPERVIS NORMAL 1ST PREG [Z34.00] 04/11/2007 12/29/2007 EXCESS FET GRTH-ANTEPART [O36.60X0] 12/05/2007 12/29/2007 Hemorrhoids, Internal [K64.8] 09/25/2009 Nipple discharge [N64.52] 01/30/2014 07/13/2016 Family history of malignant neoplasm of breast *03/07/2024 Encounter Status:Closed by JENAE ROSA on 03/12/24 Normal [facility] CNOVon 03-07-2024 CNOV Office Visit (OBGYWM) ---- THOMASOZIEL SOW ([id number]) 1985 F Date Time Provider Department 03/07/24 8:15 AM DOLORES HODGE During your visit today, we recorded the following information about you: Blood pressure Weight Height Last Period 110/64 78.5 kg 1.606 m 02/08/24 Dolores Hodge APRN.IMPORT MANAGER 03/07/2024 8:31 AM Signed Special Officer Automat offered: Patient declines. Oziel is a 38 year old who presents for an annual gynecologic exam without complaints. Reports she has noticed change to breast - thicker tissue to left breast. Menses: cycles every 30 daysand 4 days of flow. Contraception: combined hormonal contraceptives HPV vaccine: No Last Pap: 02/24/2023 abnormal, ASCUS HPV: 02/25/2023 negative History of abnormal pap: Yes Last mammogram: 2013 for nipple discharge, benign Sexually active: Yes History of STDS: None Patient concerns for STD exposure: No. Pain with intercourse: No Postcoital bleeding: No Exercise: walking OB History T2 L2 SAB0 IAB0 Ectopic0 Multiple0 Live Births2 [employer] History LMP: 02/08/2024 (Exact Date), Having periods Age at Menarche: Age at First : Age at Menopause: [employer] History Comments: Sexual Activity: Yes; Male Contraception: Pill PAST MEDICAL HISTORY Diagnosis Date Hemorrhoids Hernia of unspecified site of abdominal cavity without mention of obstruction or gangrene epigastric hernia repaired PAST SURGICAL HISTORY Procedure Laterality Date DELIVERY ONLY 12/22/07 and 2010 PAST SURGICAL HISTORY OF repair of incarcerated epigastric hernia FAMILY HISTORY Problem Relation Age of Onset Breast Cancer Mother Cancer Father Bladder cancer Diabetes Maternal Grandfather Diabetes Paternal Grandfather Heart Sister heart murmur SOCIAL HISTORY Social History Tobacco Use Smoking status: Never Passive exposure: Never Smokeless tobacco: Never Vaping Use Vaping status: Never Used Substance Use Topics Alcohol use: Yes Alcohol/week: 1.0 standard drink of alcohol Types: 1 Glasses of Wine (5oz) per week Comment: occ Drug use: No REVIEW OF SYSTEMS Abdomen: No abdominal pain, nausea, vomiting, diarrhea, or constipation. No bloating, early satiety, indigestion, or increased flatulence. Bladder: No dysuria, gross hematuria, urinary frequency, urinary urgency, or incontinence. Breast: No breast lumps, nipple d/c, overlying skin changes, redness or skin retraction. + thicker tissue to left breast Allergies and current medication updated:Yes SENSITIVE EXAM: The sensitive examination was discussed with the Patient or Patient's Authorized Snack Stewardess. As applicable, any other physician, advance practice provider, medical student, or other health professional student that will be observing or involved in the sensitive examination for educational or training purposes was discussed with the Patient or Authorized Snack Stewardess. The Patient or Authorized Snack Stewardess has agreed to proceed with the sensitive examination. (Sensitive examination includes inspection and/or palpation of the breasts, pelvis, prostate and anorectal regions). EXAM: BP 110/64 Ht 5' 3.217 (1.61m) Wt 173 lb (78.5kg) LMP 02/08/2024 BMI 30.42 kg/(m2). GENERAL: pleasant, female in no apparent distress HEENT: Normocephalic, atraumatic, mucus membranes moist, and no lesions NECK: Supple, full range of motion, no adenopathy, and thyroid normal DERMATOLOGY: Normal, without lesions, non-icteric, and non-hirsute BREAST: soft, non-tender, symmetric, no dominant mass, normal nipple-areolar complex, no lymphadenopathy, and no nipple discharge + fibrocystic to left breast CHEST: Normal inspiratory effort ABDOMEN: soft, non-tender, and no masses PELVIC: + mild erythema to superior bilateral labia majora, normal Bartholin's glands, urethra, [place]'s glands, + 3 mm raised mole to left labia majora, + nabothian cysts, good vaginal support, physiologic discharge present, normal appearing perineal body and perianal region BIMANUAL: uterus normal size, shape and consistency, no adnexal masses + tenderness to right ovary RECTOVAGINAL: deferred NEURO: alert and oriented x3,exam grossly non-focal EXTREMITIES: normal ASSESSMENT/PLAN: 1) Health maintenance: Pap/HPV up to date. Co testing in 2025. Mammogram ordered. Nutrition, exercise and routine health maintenance exams reviewed. HPV vaccine: literature provided 2) Contraception: combined hormonal contraceptives. Denies migraines with aura, VTE history or clotting disorder, hypertension, or liver issues. Does not smoke. Reviewed increased risk of blood clots, heart attack, stroke, and possibly breast cancer. 3) STD screening: Declined STD check. 4) Follow up one year or sooner as needed Encounter for screening mammogram for malignant neoplasm of breast - ICD9: (more content not included)... Normal [facility] ERNA SCREENING W TOMOon 03-07 ERNA SCREENING W ARNULFO * * *Final Report* * * DATE OF EXAM: Mar 07 2024 10:32AM [id number] - ERNA SCREENING W ARNULFO / PROCEDURE REASON: Encounter for screening mammogram for malignant neoplasm of breast * * * * Physician Interpretation * * * * RESULT: [facility] [address] [place] [address] #[id number] - ERNA SCREENING W ARNULFO HISTORY: Patient is 38 years old and is seen for screening and a palpable abnormality in the left breast. Patient states no personal history of breast cancer. Patient states no personal history of other cancers. COMPARISON STUDIES: No prior imaging studies are available for comparison. MAMMOGRAM TECHNIQUE: The study was acquired using full field digital technology and interpreted from soft copy. Digital Breast Tomosynthesis (DBT) images were obtained and used to assist in the interpretation of this examination. Computer-aided detection was utilized by the radiologist in the interpretation of this examination. MAMMOGRAM FINDINGS: The breasts are heterogeneously dense, which may obscure small masses. There are no suspicious mammographic findings to correspond with the area of palpable concern in the upper inner quadrant of the left breast. No suspicious masses, calcifications or other abnormalities are seen in the right breast. IMPRESSION: Palpable abnormality in the left breast requires additional evaluation. Diagnostic ultrasound is recommended. BI-RADS Category 0: Incomplete: Needs Additional Imaging Evaluation RISK: Based on the Tyrer-Cuzick (TC) risk assessment model, this patient has a 16.0% lifetime risk of developing breast cancer, meaning they are at average risk for developing breast cancer. However, this is only an estimate based on available history provided on the patient's questionnaire. We encourage all patients to talk with their providers about these results, further recommendations for managing breast health, and appropriate supplemental screening options if the patient has dense breast tissue. Interpreting Radiologist: Erica Adrian M.D. Electronically signed on: 03/10/2024 Retail Receiving Clerk: RENY Transcribe Date/Time: Mar 07 2024 9:48A Dictated by: ERICA ADRIAN MD This examination was interpreted and the report reviewed and electronically signed by: ERICA ADRIAN MD on Mar 10 2024 7:24AM EST [id number] Normal [facility] Urine Cultureon 02-01-2024 [facility] Staphylococcus saprophyticus [place] Count 25,000-50,000 Staphylococcus saprophyticus: REACTION cefOXitin Susc Islt Clindamycin.induced Susc Islt NEG Gentamicin Islt TAJ <=0.5 S Nitrofurantoin Islt TAJ <=16 S Oxacillin Susc Islt S Tetracycline Islt TAJ <=1 S Vancomycin Islt TAJ <=0.5 S Normal [facility] Comment on above: Performed By: #### M [id number] #### [facility] [address] [place], [place], [address] Urgent Care Visit Reporton 03-30-2023 Urgent Care Visit Report [facility] [address], [address] [place], [place] [address] OFFICE VISIT Date of Service: 01/29/24 MR#: [id number] Acct: [id number] Name: OZIEL THOMAS Rep #: [id number] : 1985 Provider: CARLYN garzon Age/Sex: 38/F Location: [facility] Status: Signed Intake Vital Signs 12/27/22 07:40 01/29/24 10:00 Height 5 ft 3 in 5 ft 2 in Weight: 162 lb BMI 29.6 BP 128/84 H Blood Pressure Location Lt brachial Position Sitting Respiration 16 Pulse 90 Pulse Source Monitor Temp 98.2 F Pulse Oximetry (%) 98 Oxygen Delivery Method room air Intake Visit Reasons: DYSURIA AND LT EAR fluid Chief Complaint: dysuria and lt ear concerns 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 Accompanied by: Self Is patient in pain?: Yes Allergies No Known Allergies Allergy (Verified 01/29/24 10:01) Medications ???Medication ???Instructions ???Recorded ???Confirmed ???Type norgestimate 0.25 mg-ethinyl 1 tab PO DAILY 10/10/19 01/29/24 History estradiol 35 mcg tablet neomycin-polymyxin- hydrocort 3.5 4 drp otic (ear) Q8H 10 days #10 mL 01/29/24 01/29/24 Rx mg/mL-10,000 unit/mL-1 % ear solution nitrofurantoin 100 mg PO Q12H 7 days #14 caps 01/29/24 01/29/24 Rx monohydrate/macrocr ystals 100 mg capsule (Macrobid) phentermine 7.5 mg-topiramate ER 1 cap PO QDAY 01/29/24 01/29/24 History 46 mg capsule,ext.release 24hr mphase (Qsymia) PFSH Medical History UTI (urinary tract infection) Elevated C-reactive protein (CRP) Hemorrhoids Right upper quadrant abdominal pain with positive Knapp's Sign Diarrhea Nausea Abdominal pain Surgical History History of Hx of hernia repair Family History Mother Skin cancer Ovarian cancer Father Bladder cancer Social History Smoking Status: Never smoker second hand exposure: No alcohol intake: never substance use type: does not use caffeine: Yes what type of physical activity do you participate in: walking frequency: 3-4 times per week HPI HPI Chief Complaint: dysuria and lt ear concerns Details: OZIEL THOMAS, is a 38 F who presents to the office today for concerns regarding dysuria and left ear fluid. She state intermittent history of ear drainage, but more than usual yesterday. She denies ear pain or other URI symptoms. ROS Const Constitutional: No body ache, chills, fatigue, fever(s), headache(s) or change in appetite Eyes Eyes: No blurry vision, change in vision, double vision, irritation, discharge, vision loss, dry eyes, bulging eyes, floaters, visual disturbances, eye pain, Light sensitivity, spots in vision, tunnel vision or other ENT ENT: Positive for ear discharge; No ear or mastoid pain, ear pressure, tinnitus, dizziness/vertigo, nosebleed/epistaxis , nasal congestion, nose pain, sinus pressure, sinus pain, nasal discharge, post nasal drip, headache(s), facial pain, dental pain, difficulty swallowing, bad breath, hoarseness, lip swelling, mouth lesions, mouth pain, neck pain, sore throat, tongue swelling or throat swelling Resp Respiratory: No cough, change in phlegm color, chest congestion, hemoptysis, pain on inspiration, shortness of breath, pain with cough, stridor or wheezing Cardio Cardiology: No chest pain at rest, chest pain with exertion, shortness of breath, dyspnea on exertion or lightheadedness Gastro GI: No abdominal pain, change in bowel habits or difficulty swallowing Genitourinary-Femal e: Positive for burning urination, urinary frequency and blood in urine; No urinary incontinence, urinary urgency or urinary hesitancy Musc Musculoskeletal: No joint pain or neck pain Skin Skin: No rash Neuro Neurology: No headache(s) or visual disturbances Psych Psychiatric: No change in appetite Endo Endocrine: No fatigue Aller/Imm Allergy/Immunologic : No lip swelling, throat swelling, tongue swelling or wheezing Exam Const General: cooperative, healthy appearing, comfortable and no acute distress Orientation: alert, awake and oriented x3 HENMT Head: normal to inspection and normocephalic Ears: hearing grossly normal bilaterally, TM's normal bilaterally and EAC abnormal (dry skin, left ear canal redness) no otic discharge Nose: external nose normal, nares normal and no nasal discharge Face and sinus: normal facial exam and sinuses nontender Mouth: oral mucosae normal, lip normal, tongue normal, oropharynx normal and moist mucous membranes Throat: posterior oropharynx normal, tonsils normal, uvula midline and no postnasal drainage Eyes General: appearance normal, both eyes and all relate (more content not included)... Normal [facility] Basophil percentageOrdered B y: Dat Guo on 12-27-2022 Basophil percentage 25-50 SEEN /hpf 0-5 [facility] Bilirubin Test strip Ql (U)O rdered By: Dat Guo on 12-27-2022 Bilirubin Ql (U) Negative Negative [facility] Culture, urineOrdered By: St barbie Guo on 12-27-2022 Bacteria identified Cx Nom (U) Positive [facility] Ketones Test strip Ql (U)Ord ered By: Dat Guo on 12-27-2022 Ketones Ql (U) 5 mg/dl Negative [facility] - Chemistry and C hemistry - challengeon 12-27-2022 Bilirubin Ql (U) Negative [facility] Glucose Ql (U) Negative [facility] Ketones Ql (U) Trace (5) [facility] Specific gravity (U) [Rel density] 1.030 [facility] Urobilinogen (U) [Mass/Vol] Negative [facility] - Hematology and Cell countson 12-27-2022 Hemoglobin Ql (U) Large [facility] - Specimen inform ationon 12-27-2022 Clarity (U) Clear [facility] Color (U) Yellow [facility] - Urinalysison Nitrite Ql (U) Negative [facility] Protein Ql (U) Negative [facility] Mucus LM Ql (Urine sed)Order ed By: Dat Guo on 12-27-2022 Mucus Ql (Urine sed) 1+ /hpf [facility] Nitrite Test strip Ql (U)Ord ered By: Dat Guo on 12-27-2022 Nitrite Ql (U) Negative Negative [facility] No Panel Informationon 12-27 Urine Leukocytes Positive [facility] Urine Non-Hemolyzed Blood [facility] Protein Test strip Ql (U)Ord ered By: Dat Guo on 12-27-2022 Protein Ql (U) 30 mg/dl Negative [facility] Squamous epithelial cells de tection in urine sediment by light microscopyOrdered By: Dat Guo on 12-27-2022 Epithelial cells.squamous LM Ql (Urine sed) 0-5 SEEN /hpf 5-10 [facility] Urine blood detectionOrdered By: Dat Guo on 12-27-2022 RBC Ql (U) 150 /ul Negative [facility] RBC Ql (U) 5-10 SEEN /hpf 0-5 [facility] Urine clarityOrdered By: Familia Guo on 12-27-2022 Clarity (U) Clear Clear [facility] Urine color determinationOrd ered By: Dat Guo on 12-27-2022 Color (U) Yellow Yellow [facility] Urine glucose detectionOrder ed By: Dat Guo on 12-27-2022 Glucose Ql (U) Normal mg/dl Normal [facility] Urine leukocyte esterase det ection by dipstickOrdered By: Dat Guo on 12-27-2022 Leukocyte esterase Test strip Ql (U) 100 /ul Negative [facility] Urine pHOrdered By: Dat lundberg on 12-27-2022 pH (U) 5.0 [pH] 5.0 - 8.0 [facility] Urine sediment bacteria coun t by microscopy (number/high power field)Ordered By: Dat Guo on 12-27-2022 Bacteria LM.HPF (Urine sed) [#/Area] 1 /[HPF] None Seen [facility] Urine specific gravity measu rementOrdered By: Dat Guo on 12-27-2022 Specific gravity (U) [Rel density] 1.020 1.002-1.030 [facility] Urobilinogen Auto test strip Ql (U)Ordered By: Dat Guo on 12-27-2022 Urobilinogen Ql (U) Normal mg/dl Normal [facility] Amorphous sediment detection in urine sediment by light microscopyOrdered By: Lawrence Yeager on 09-22-2022 Amorphous sediment LM Ql (Urine sed) 1+ URATE [facility] Basophil percentageOrdered B y: Lawrence Yeager on 09-22-2022 Basophil percentage 25-50 SEEN /hpf 0-5 [facility] Bilirubin Test strip Ql (U)O rdered By: Lawrence Yeager on 09-22-2022 Bilirubin Ql (U) Negative Negative [facility] Culture, urineOrdered By: Florentino Yeager on 09-22-2022 Bacteria identified Cx Nom (U) Presumptive E. coli [facility] Ketones Test strip Ql (U)Ord ered By: Lawrence Yeager on 09-22-2022 Ketones Ql (U) Negative Negative [facility] Mucus LM Ql (Urine sed)Order ed By: Lawrence Yeager on 09-22-2022 Mucus Ql (Urine sed) 0 SEEN /hpf [facility] Nitrite Test strip Ql (U)Ord ered By: Lawrence Yeager on 09-22-2022 Nitrite Ql (U) Negative Negative [facility] Protein Test strip Ql (U)Ord ered By: Lawrence Yeager on 09-22-2022 Protein Ql (U) 30 mg/dl Negative [facility] Squamous epithelial cells de tection in urine sediment by light microscopyOrdered By: Lawrence Yeager on 09-22-2022 Epithelial cells.squamous LM Ql (Urine sed) 0-5 SEEN /hpf 5-10 [facility] Urine blood detectionOrdered By: Lawrence Yeager on 09-22-2022 RBC Ql (U) 250 /ul Negative [facility] RBC Ql (U) 10-25 SEEN /hpf 0-5 [facility] Urine clarityOrdered By: Ajay Yeager on 09-22-2022 Clarity (U) Sl. Cloudy Clear [facility] Urine color determinationOrd ered By: Lawrence Yeager on 09-22-2022 Color (U) Yellow Yellow [facility] Urine glucose detectionOrder ed By: Lawrence Yeager on 09-22-2022 Glucose Ql (U) Normal mg/dl Normal [facility] Urine leukocyte esterase det ection by dipstickOrdered By: Lawrence Yeager on 09-22-2022 Leukocyte esterase Test strip Ql (U) 500 /ul Negative [facility] Urine pHOrdered By: Lawrence pak on 09-22-2022 pH (U) 6.5 [pH] 5.0 - 8.0 [facility] Urine sediment bacteria coun t by microscopy (number/high power field)Ordered By: Lawrence Yeager on 09-22-2022 Bacteria LM.HPF (Urine sed) [#/Area] 0 /[HPF] None Seen [facility] Urine specific gravity measu rementOrdered By: Lawrence Yeager on 09-22-2022 Specific gravity (U) [Rel density] 1.010 1.002-1.030 [facility] Urobilinogen Auto test strip Ql (U)Ordered By: Lawrence Yeager on 09-22-2022 Urobilinogen Ql (U) Normal mg/dl Normal [facility] - Chemistry and C hemistry - challengeon 09-21-2022 Bilirubin Ql (U) Negative [facility] Glucose Ql (U) Negative [facility] HCG ( test) Ql (U) Negative [facility] Ketones Ql (U) Negative [facility] pH (U) 6.5 [pH] [facility] Specific gravity (U) [Rel density] 1.005 [facility] Urobilinogen (U) [Mass/Vol] 0.1325178 mg/dL [facility] - Hematology and Cell countson 09-21-2022 Hemoglobin Ql (U) Hemolyzed [facility] - Specimen inform ationon 09-21-2022 Clarity (U) Clear [facility] Color (U) YELLOW [facility] - Urinalysison Nitrite Ql (U) Negative [facility] Protein Ql (U) Trace [facility] No Panel Informationon 09-21 Urine Leukocytes Positive [facility] Urine Non-Hemolyzed Blood Large [facility] Clinical Lists Update: 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 Mata Morrison MD Work Phone: [facility] 10-08-2024 12:43-0400 Body weight 82.[address] Mata Morrison MD Work Phone: [facility] 10-08-2024 12:43-0400 Diastolic blood pressure 60 mm[Hg] Dr. Mata Morrison MD Work Phone: [facility] 10-08-2024 12:43-0400 Heart rate 68 /min Dr. Mata Morrison MD Work Phone: [facility] 10-08-2024 12:43-0400 Respiratory rate 14 /min Dr. Mata Morrison MD Work Phone: [facility] 10-08-2024 12:43-0400 SaO2% (BldA) [Mass fraction] 99 % Dr. Mata Morrison MD Work Phone: [facility] 10-08-2024 12:43-0400 Systolic blood pressure 120 mm[Hg] Dr. Mata Morrison MD Work Phone: [facility] 03-07-2024 08:03-0500 Body height 160.6 cm Dolores Haury DISTRICT SALES LEADER.IMPORT MANAGER Work Phone: [facility] 03-07-2024 08:03-0500 Body mass index (BMI) [Ratio] 30.44 kg/m2 Dolores Haury DISTRICT SALES LEADER.IMPORT MANAGER Work Phone: [facility] 03-07-2024 08:03-0500 Body weight 78.47 kg Dolores Haury DISTRICT SALES LEADER.IMPORT MANAGER Work Phone: [facility] 03-07-2024 08:03-0500 Diastolic blood pressure 64 mm[Hg] Dolores Haury DISTRICT SALES LEADER.IMPORT MANAGER Work Phone: [facility] 03-07-2024 08:03-0500 Systolic blood pressure 110 mm[Hg] Dolores Haury DISTRICT SALES LEADER.IMPORT MANAGER Work Phone: [facility] 02-11-2023 09:40-0500 Body height 160 cm Jenae Powderhorn DISTRICT SALES LEADER.IMPORT MANAGER Work Phone: [facility] 02-11-2023 09:40-0500 Body weight 74.66 kg Jenae Powderhorn DISTRICT SALES LEADER.IMPORT MANAGER Work Phone: [facility] 02-11-2023 09:40-0500 Diastolic blood pressure 60 mm[Hg] Jenae Powderhorn DISTRICT SALES LEADER.IMPORT MANAGER Work Phone: [facility] 02-11-2023 09:40-0500 Systolic blood pressure 90 mm[Hg] 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 Work Phone: [facility] 12-27-2022 07:40-0400 Body height 160.[address] Mata Morrison Work Phone: [facility] 12-27-2022 07:40-0400 Body mass index (BMI) [Ratio] 30.1 kg/m2 Dr. Mata Morrison Work Phone: [facility] 12-27-2022 07:40-0400 Body temperature 98.2 [degF] Dr. Mata Morrison Work Phone: [facility] 12-27-2022 07:40-0400 Body weight 77.[address] Mata Morrison Work Phone: [facility] 12-27-2022 07:40-0400 Diastolic blood pressure 84 mm[Hg] Dr. Mata Morrison Work Phone: 5(824)168-769071 [place] [address] 12-27-2022 07:40-0400 Heart rate 63 /min Dr. Mata Morrison Work Phone: 0(125)[phone] [address] 12-27-2022 07:40-0400 Respiratory rate 17 /min Dr. Mata Morrison Work Phone: 8(949)187-310443 [address] 12-27-2022 07:40-0400 SaO2% (BldA) [Mass fraction] 98 % Dr. Mata Morrison Work Phone: 0(363)[phone] [place] [address] 12-27-2022 07:40-0400 Systolic blood pressure 120 mm[Hg] Dr. Mata Morrison Work Phone: 7(455)988-808071 [place] [address] 09-21-2022 12:28-0400 Body height 160.[address] Mata Morrison Work Phone: 8(589)129-617271 [place] [address] 09-21-2022 12:28-0400 Body mass index (BMI) [Ratio] 35.4 kg/m2 Dr. Mata Morrison Work Phone: 6(120)[phone] [place] [address] 09-21-2022 12:28-0400 Body temperature 97.4 [degF] Dr. Mata Morrison Work Phone: 1(779)[phone] [place] [address] 09-21-2022 12:28-0400 Body weight 90.[address] Mata Morrison Work Phone: [facility] 09-21-2022 12:28-0400 Diastolic blood pressure 80 mm[Hg] Dr. Mata Morrison Work Phone: [facility] 09-21-2022 12:28-0400 Heart rate 86 /min Dr. Mata Morrison Work Phone: [facility] 09-21-2022 12:28-0400 Respiratory rate 16 /min Dr. Mata Morrison Work Phone: [facility] 09-21-2022 12:28-0400 SaO2% (BldA) [Mass fraction] 99 % Dr. Mata Morrison Work Phone: [facility] 09-21-2022 12:28-0400 Systolic blood pressure 112 mm[Hg] Dr. Mata Morrison Work Phone: [facility] Encounters Encounter Date Encounter Type Care Provider Facility Start: 10-08-2024 End: 10-08-[address] Mata Morrison MD Work Phone: -Laboratory Specimen Start: 10-08-2024 End: 10-08-2024 Patient encounter procedure Dat SANDRA -Laboratory Specimen Work Phone: Start: 10-08-2024 End: 10-08-2024 Patient encounter procedure Dat Guo [facility] Work Phone: Start: 10-08-2024 End: 10-08-[address] Mata Morrison MD Work Phone: [facility] Start: 10-08-2024 End: 10-08-2024 ambulatory Mata Morrison Facility:[facility] Start: 05-21-2024 End: 05-23-2024 Telephone encounter Dolores Hodge APRN.IMPORT MANAGER Work Phone: OB/Gynecology Comment on above: Radiology Mammogram Start: 03-15-2024 End: 03-15-2024 ambulatory Dolores Hodge APRN.IMPORT MANAGER Work Phone: OB/Gynecology Comment on above: Breast Imaging Start: 03-15-2024 End: 03-15-2024 E-mail encounter from caregiver Dolores Hodge APRN.CNP Work Phone: OB/Gynecology Start: 03-12-2024 End: 03-12-2024 Telephone encounter Jenae Rosa APRN.IMPORT MANAGER Work Phone: OB/Gynecology Comment on above: Orders Start: 03-07-2024 End: 03-07-2024 ambulatory DOLORES AMESJENNYFER Facility:[facility] Start: 03-07-2024 End: 03-07-2024 Subsequent hospital visit by physician Screen Mammo [facility] Mammogram Comment on above: Encounter for screen ing mammogram for malignant neoplasm of breast [Z12.31] Start: 03-07-2024 End: 03-07-2024 Patient encounter procedure Dolores Hodge APRN.CNP Work Phone: OB/Gynecology Comment on above: Encounter for gyneco logical examination (general) (routine) without abnormal findings (Primary Dx); General counseling for prescription of oral contraceptives; Screening for cervical cancer; Screening for HPV (human papillomavirus); Encounter for screening mammogram for malignant neoplasm of breast; Family history of malignant neoplasm of breast Start: 03-07-2024 End: 03-07-2024 Patient encounter status Dolores Hodge APRN.CNP Work Phone: [facility] Start: 03-07-2024 End: 03-07-2024 ambulatory DOLORES KWAKUJENNYFER Facility:[facility] Start: 03-07-2024 Encounter for gynecological examination (general) (routine) without abnormal findings DOLORES HODGE [facility] Start: 01-29-2024 End: 01-30-2024 ambulatory Mata Morrison Facility:[facility] Start: 02-11-2023 End: 02-11-2023 Patient encounter procedure Jenae Rosa APRN.CNP Work Phone: OB/Gynecology Comment on above: Encounter for gyneco logical examination (general) (routine) without abnormal findings (Primary Dx); General counseling for prescription of oral contraceptives; Screening for cervical cancer; Encounter for screening for human papillomavirus (HPV) Start: 02-11-2023 End: 02-11-2023 Patient encounter status Jenae Rosa APRN.CNP Work Phone: [facility] Work Phone: Start: 12-27-2022 End: 12-27-[address] Mata Morrison Work Phone: [facility] Work Phone: Start: 12-27-2022 End: 12-27-[address] Mata Morrison Work Phone: [facility] Specimen Work Phone: Start: 12-27-2022 End: 12-27-[address] Mata Morrison Work Phone: [facility] Work Phone: Start: 09-22-2022 End: 09-22-[address] Mata Morrison Work Phone: [facility] Work Phone: Start: 09-22-2022 End: 09-22-[address] [facility] Work [facility]: Start: 09-21-2022 End: 09-21-[address] Mata Morrison Work Phone: [facility] Work Phone: Start: 01-01-2022 Refill Sona alicea MD Work Phone: OB/Gynecology Comment on above: Refill Request Procedures Date Procedure Procedure Detail Performing Clinician Start: 10-08-[address] Mata Morrison MD Work Phone: Start: 12-27-[address] Mata Morrison Work Phone: Start: 09-22-[address] Mata Morrison Work Phone: H/O: section History of C-sectio n Dr. Mata Morrison Work Phone: Comment on above: 12/14/2007, 09/30/19 11 Plan of Treatment Date Care Activity Detail Author Start: 10-06-2031 Urine microalbumin profile DTaP,Tdap,Td Vaccine (2 - Td or Tdap) [facility] Start: 02-12-2024 Screening for malign ant neoplasm of cervix Cervical Cancer Screening [facility] Start: 11-20-2023 Covid-19 Vaccine () Covid-19 Vaccine () [facility] Start: 11-20-2023 Influenza vaccination Influenza Vacc ine (#1) [facility] Start: 12-02-2022 HPV TESTING HPV TESTING [facility] Start: 12-02-2022 PAP TESTING PAP TESTING [facility] Start: 11-19-2022 Covid-19 Vaccine () Covid-19 Vaccine () [facility] Start: 11-19-2022 Influenza vaccination Influenza Vacc ine (#1) [facility] Start: 03-21-2022 Depression Assessment Depression Ass essment [facility] Start: 11-19-2021 Influenza vaccination INFLUENZA (#1) [facility] Start: 03-21-2021 DEPRESSION ASSESSMENT DEPRESSION ASS ESSMENT [facility] Start: 06-25-2020 COVID-19 VACCINE (3 - Booster for Moderna series) COVID-19 VACCINE (3 - Booster for Moderna series) [facility] Start: 08-11-2016 End: 08-11-2016 Appointment Appointment [facility] Work Phone: Start: 08-11-2016 End: 08-11-2016 Appointment Appointment [facility] Work Phone: Start: 08-05-2016 End: 08-05-2016 Appointment Appointment [facility] Work Phone: Start: 2005 Hepatitis B Vaccine (1 of 3 - 19+ 3-dose series) Hepatitis B Vaccine (1 of 3 - 19+ 3-dose series) [facility] Start: 2005 Urine microalbumin profile DTAP,TDAP,TD (1 - Tdap) [facility] Start: 2004 Anxiety Screening Anxiety Screening [facility] Start: 2004 Depression Screening Depression Scre [facility] Start: 2004 HEPATITIS C SCREENING HEPATITIS C [facility] Start: 2004 Hepatitis C screening Hepatitis C [facility] Start: 2004 HIV SCREENING HIV SCREENING [facility] Start: 2004 HIV screening HIV Screening [facility] Start: 1986 HEPATITIS B (1 of 3 - 3-dose series) HEPATITIS B (1 of 3 - 3-dose series) [facility] Start: 1986 Hepatitis B Vaccine (1 of 3 - 3-dose series) Hepatitis B Vaccine (1 of 3 - 3-dose series) [facility] End: 04-06-2025 DBT Breast - bilateral screening ERNA SCREENING [facility] Routine Encounter for screening mammogram for malignant neoplasm of breast 1 Occurrences starting 03/07/2024 until 04/06/2025 [facility] Work Phone: Comment on above: 1 Occurrences starti ng 03/07/2024 until 04/06/2025 DBT Breast - bilater al screening ERNA SCREENING [facility] Radiology Routine Encounter for screening mammogram for malignant neoplasm of breast 03/07/2024 10:32 AM EST [facility] End: 04-11-2025 MG Breast - left Diagnostic for implant ERNA DIAGNOSTIC LEFT Radiology Routine Abnormal mammogram 1 Occurrences starting 03/12/2024 until 04/11/2025 [facility] Comment on above: 1 Occurrences starti ng 03/12/2024 until 04/11/2025 PAP TEST PAP TEST Lab [facility] peter Encounter for gynecological examination (general) (routine) without abnormal findings Screening for cervical cancer Encounter for screening for human papillomavirus (HPV) 02/11/2023 10:03 AM EST [facility] Work Phone: End: 04-11-2025 US Breast - left limited US BREAST LTD LEFT Radiology Routine Abnormal mammogram 1 Occurrences starting 03/12/2024 until 04/11/2025 [facility] Work Phone: Comment on above: 1 Occurrences starti ng 03/12/2024 until 04/11/2025 [facility] Immunizations Immunization Date Immunization Notes Care Provider Omayra arriola 10-05-2021 tetanus toxoid, redu yolanda diphtheria toxoid, and acellular pertussis vaccine, adsorbed 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 Work Phone: [facility] Work Phone: 01-26-2006 influenza virus vaccine, unspecified formulation Sona Zimmer MD Work Phone: [facility] Work Phone: Payers Date Payer Category Payer Self-pay [id number] 2009 [employer] BLUE ACCE SS PPO [id number] 2009 Unknown [employer]ULIANA SANDOVAL ACCE SS PPO [id number] 2009-Present [phone] [place] [address] PPO [id number] 2009 Unknown [id number] Unknown [facility] [id number] Unknown [id number] Unknown [id number] Unknown [id number] Unknown [id number] Social History Date Type Detail Facility Start: 08-25-2010 End: 04-15-2023 Tobacco smoking status NHIS Never smoked tobacco [facility] Work Phone: Start: 08-25-2010 End: 02-11-2023 Tobacco use and exposure Smokeless tobacco non-user [facility] Work Phone: Start: 01-31-2021 End: 03-07-2024 Alcohol intake Current drinker of alcohol (finding) [facility] Start: 01-31-2021 End: 02-11-2023 Alcohol intake [facility] Start: 07-13-2016 Alcohol Comment occ [facility] Start: 1985 Sex Assigned At Not on file [facility] Start: 09-21-2022 End: 12-27-2022 Tobacco smoking status NHIS Unknown if ever smoked [facility] Start: 1985 Sex Assigned At Female [facility] Start: 02-11-2023 End: 03-07-2024 Tobacco use panel [facility] National Score (1-100), lower number is lower risk 51 [facility] NEGATED: Highlighted rowStart: NINF History of tobacco use Passive smoker [facility] Work Phone: Functional Status Date Assessment Result Facility 02-21-2014 Are you deaf, or do you have serious difficulty hearing No 02/21/2014 9:51 AM Mima Flynn MA No [facility] 02-21-2014 Are you blind, or do you have serious difficulty seeing, even when wearing glasses No 02/21/2014 9:51 AM Mima Flynn MA No [facility] 02-21-2014 Do you have serious difficulty walking or climbing stairs No 02/21/2014 9:51 AM Mima Flynn MA No [facility] 02-21-2014 Do you have difficul ty dressing or bathing No 02/21/2014 9:51 AM Mima Flynn MA No [facility] 02-21-2014 Because of a physica l, mental, or emotional condition, do you have difficulty doing errands alone such as visiting a physician's office or shopping No 02/21/2014 9:51 AM Mima Flynn MA No [facility] Mental Status Date Assessment Result Facility 02-21-2014 Because of a physica l, mental, or emotional condition, do you have serious difficulty concentrating, remembering, or making decisions No 02/21/2014 9:51 AM Mima Flynn MA No [facility] Clinical Notes 01-30-2014 to 10-08-2024 Note Date & Type Note Facility 10-08-2024 Progress note [facility] 10-08-2024 Progress note Note Date/Time October 08, 2024 12:56pm [facility] [address], [address] [place], [place] [address] OFFICE VISIT Date of Service: 10/08/24 MR#: [id number] Acct: [id number] Name: OZIEL THOMAS Rep #: [id number] : 1985 Provider: JOCY Carter Age/Sex: 39/F Location: [facility] Status: Signed Intake Vital Signs 01/29/24 10:00 10/08/24 12:43 Height 5 ft 2 in Weight: 162 lb 182 lb BMI 29.6 BP 128/84 H 120/60 Blood Pressure Location Lt brachial Lt brachial Position Sitting Sitting Respiration 16 14 Pulse 90 68 Pulse Source Monitor Monitor Temp 98.2 F 98.4 F Temp Source Oral Pulse Oximetry (%) 98 99 Oxygen Delivery Method room air room air Intake Visit Reasons: CONCERN FOR UTI Chief Complaint: dysuria and lt ear concerns Allergies No Known Allergies Allergy (Verified 10/08/24 12:34) Medications ?Medication ?Instructions ?Recorded ?Confirmed ?Type nitrofurantoin 100 mg PO Q12H 5 days #10 ca ps 10/08/24 10/08/24 Rx monohydrate/macrocrystals 100 mg capsule (Macrobid) PFSH Medical History UTI (urinary tract infection) Elevated C-reactive protein (CRP) Hemorrhoids Right upper quadrant abdominal pain with positive Knapp's Sign Diarrhea Nausea Abdominal pain Surgical History History of Hx of hernia repair Family History Mother Skin cancer Ovarian cancer Father Bladder cancer Social History Smoking Status: Never smoker second hand exposure: No alcohol intake: never substance use type: does not use caffeine: Yes what type of physical activity do you participate in: walking frequency: 3-4 times per week HPI HPI Chief Complaint: dysuria and lt ear concerns Details: OZIEL THOMAS, is a 39 F who presents to the office today for [facility] the [facility] for approximately 1-day history of dysuria and urinary frequency with suprapubic pressure. No complaints of fever, chills, sweats, lightheadedness/dizziness, nausea/vomiting, or chest pain/shortness of breath/dyspnea on exertion/back pain. No changes in color/ character of stool; cloudy urine. No ugos-bus-dumcbng products taken to assist. No other associated symptoms and no alleviating/aggravating factors. ROS Const Constitutional: No other (As above) Exam Const General: cooperative, healthy appearing and no acute distress Orientation: alert, awake and oriented x3 Chest Chest palpation & inspection: normal inspection of the chest Resp Effort & Inspection: normal respiratory effort and able to speak in complete sentences Auscultation: Bilateral: Clear to Auscultation Cardio Palpation: normal PMI Rate: regular rate Rhythm: regular rhythm Heart Sounds: S1 normal, S2 normal, no gallops, no murmurs and no rubs Pulses: radial pulses present GI Inspection: normal to inspection Palpation: soft and tender suprapubic (Patient describes upon self-palpation) General: No CVA tenderness Skin General: no rashes or lesions noted Neuro General: patient alert, patient awake and patient oriented x3 Cognition: normal cognition Speech: speech normal Psych Appearance: grossly normal Mental Status: mental status grossly normal Mood: congruent mood Affect: normal affect Speech and Movement: speech and movement normal Attitude: cooperative Diagnoses Urinary tract infection N39.0 Assessment and Plan Assessment and Plan (1) Urinary tract infection: Status: Acute Plan: See POC results; urine sent to lab for C/S. Macrobid as prescribed today. Supportive measures as instructed today. Follow-up with PCP in 3 to 5 days should symptoms not improve, sooner should symptoms only worsen or any other concerns develop. Patient states acknowledging understanding all the above. Results POC Urinalysis Dip (Clinic) Office Urine Color STRAW Last Edit by Prachi Zamora MA on 10/08/24 12:50 Office Urine Clarity Cloudy Last Edit by Prachi Zamora MA on 10/08/24 12:5 0 Office Urine Glucose Negative Last Edit by Prachi Zamora MA on 10/08/24 12 :50 Office Urine Ketones Negative Last Edit by Prachi Zamora MA on 10/08/24 12 :50 Off Ur Spec [place] 1.005 Last Edit by Prachi Zamora MA on 10/08/24 12:50 Office Urine pH 6.5 Last Edit by Prachi Zamora MA on 10/08/24 12:50 Office Urine Bilirubin Negative Last Edit by Prachi Zamora MA on 10/08/24 12:50 Office Urine Urobilinogen 0.2 mg/dL Last Edit by Prachi Zamora MA on 10/08 12:50 Office Urine Blood Moderate Last Edit by Prachi Zamora MA on 10/08/24 12:5 0 Office Urine Blood Hemolyzed Large Last Edit by Prachi Zamora MA on 12:50 Office Urine Protein Trace Last Edit by Prachi Zamora MA on 10/08/24 12:50 Office Urine Nitrate Negative Last Edit by Prachi Zamora MA on 10/08/24 12 :50 Off Ur Leukocytes Positive Last Edit by Prachi Zamora MA on 10/08/24 12:50 Coding Level of Care Code Off vis,est,level 3 Assessment and Plan Assessment and Plan Orders: Orders POC Urinalysis Dip (Clinic) Today N30.00 - Acute cystitis without hematuria Culture, Urine Today N30.00 - Acute cystitis without hematuria Medications: New nitrofurantoin monohyd/m-cryst 100 mg (Macrobid) must administer with a meal/food 100 mg PO Q12H 5 days 10 caps 0RF 10/08/24 1256 <Electronically signed by Dat SANDRA> Date _ Dat Murillo Signature: Date (if applicable) CC: ~ [facility] Work Phone: [phone] Telephone encounter Note* Telephone Encounter - Deisy Washington RN - 05/23/2024 2:22 PM EST 3rd attempt. Patient has not read mychart message. Left message for patient to call office or checkmychart message. Letter sent. Deisy Washington RN [facility]03-05-2025 Miscellaneous Notes* Telephone Encounter - Deisy Washington RN - 05/23/2024 2:22 PM EST 3rd attempt. Patient has not read mychart message. Left message for patient to call office or checkmychart message. Letter sent. Deisy Washington RN * Telephone Encounter - Deisy Washington RN - 05/22/2024 10:09 AM EST Left message for patient to call office or check mychart message. Deisy Washington RN * Telephone Encounter - Deisy Washington RN - 05/21/2024 10:21 AM EST ----- Message from Dolores Hodge APRN.CNP sent at 05/21/2024 7:37 AM EST ----- Please call patient Dolores Hodge APRN.CNP ----- Message ----- From: Jalyn Holland Sent: 05/21/2024 6:18 AM EST To: Dolores Hodge APRN.CNP Recently, the patient listed above had a breast imaging exam which recommended additional imaging of an abnormality for further workup. As of this date we are unable to document whether this has beencompleted. Please have your patient call [phone] or ext. [phone] to schedule a breast imaging exam appointment for additional evaluation. Please ensure that you have placed either an electronic or hard copy order for the additional exam recommended from the screening mammogram report. We understand that this is an inconvenience to you and greatly appreciate your cooperation. If your patient has already scheduled an appointment, please disregard this letter. Sincerely, [facility] Breast Imaging [facility] Telephone encounter Note * Telephone Encounter - Deisy Washington RN - 05/22/2024 10:09 AM EST Left message for patient to call office or check ClientShowhart message. Deisy Washington RN [facility]03-03-2025 Telephone encounter Note* Telephone Encounter - Deisy Washington RN - 05/21/2024 10:21 AM EST ----- Message from Dolores Hodge APRN.CNP sent at 05/21/2024 7:37 AM EST ----- Please call patient Dolores Hodge APRN.CNP ----- Message ----- From: Jalyn Holland Sent: 05/21/2024 6:18 AM EST To: Dolores Hogde APRN.CNP Recently, the patient listed above had a breast imaging exam which recommended additional imaging of an abnormality for further workup. As of this date we are unable to document whether this has beencompleted. Please have your patient call [phone] or ext. [phone] to schedule a breast imaging exam appointment for additional evaluation. Please ensure that you have placed either an electronic or hard copy order for the additional exam recommended from the screening mammogram report. We understand that this is an inconvenience to you and greatly appreciate your cooperation. If your patient has already scheduled an appointment, please disregard this letter. Sincerely, [facility] Breast Imaging [facility]12-18-2024 History of Present illness Narrative* Catie Hamm Mammo Tech - 03/07/2024 10:10 AM EST Radiology Service Progress Note PATIENT NAME: Oziel Thomas DATE OF SERVICE: March 07, 2024 TIME: 9:47 AM PATIENT IDENTITY VERIFICATION COMPLETED USING TWO (2) IDENTIFIERS: Name and Date of confirmedby patient verbally. FALL SCREENING: Has the patient had 2 falls in the last year or 1 fall with injury or currently using an Ambulatory Assistive Device (Walker, Cane, Wheelchair, Crutches, etc.)? No PATIENT GENDER DATA: Female. status: : No status: NO. PATIENT RELEVANT IMPLANT DATA REVIEWED: Not Applicable PATIENT PRESENTS WITH AN IMPLANTABLE OR ATTACHED AIRCRAFT MAGNETO MECHANIC: No RADIOLOGY DEPARTMENT: Mammography PERIPHERAL IV DATA: Not applicable SIGNED BY: Trisha Rob March 07, 2024 9:47 AM documented in [facility]Del[facility]12-[facility]24 NoteHNO ID: [id number] Author: CATIE HAMM Mammo Tech Service: ? Author Type: Secretary Bookkeeper Type: Progress Notes Filed: 03/07/2024 09:47 Note Text: Radiology Service Progress Note PATIENT NAME: Oziel Thomas DATE OF SERVICE: March 07, 2024 TIME: 9:47 AM PATIENT IDENTITY VERIFICATION COMPLETED USING TWO (2) IDENTIFIERS: Name and Date of confirmed by patient verbally. FALL SCREENING: Has the patient had 2 falls in the last year or 1 fall with injury or currently using an Ambulatory Assistive Device (Walker, Cane, Wheelchair, Crutches, etc.)? No PATIENT GENDER DATA: Female. status: : No status: NO. PATIENT RELEVANT IMPLANT DATA REVIEWED: Not Applicable PATIENT PRESENTS WITH AN IMPLANTABLE OR ATTACHED AIRCRAFT MAGNETO MECHANIC: No RADIOLOGY DEPARTMENT: Mammography PERIPHERAL IV DATA: Not applicable SIGNED BY: Catie Hamm Janeeva March 07, 2024 9:47 [facility]12-18-2024 Instructions* Patient Instructions* Dolores Hodge APRN.CNP - 03/07/2024 8:14 AM EST To schedule an appointment please either: Use the [place] Scheduling Ticket you may receive OR Call [phone], Option 2 to schedule. For information pertaining to genetics services at the [facility], you can visit us online [email or web address]. If you do not have access to information online, please contact us at the number above and we can send you information. A 3-dose schedule is recommended for people who get the first dose on or after their 15th birthday,and for people with certain immunocompromising conditions. In a 3-dose series, the second dose should be given 1-2 months after the first dose, and the third dose should be given 6 months after the first dose (0, 1-2, 6-month schedule). The minimum intervals are 4 weeks between the first and second dose, 12 weeks between the second and third doses, and 5 months between the first and third doses. If a vaccine dose is administered after a shorter interval, it should be re-administered after another minimum interval has elapsed sincethe most recent dose. If the vaccination schedule is interrupted, vaccine doses do not need to be repeated (no maximum interval). documented in [facility] encounterDel[facility]12-18-2024 NoteHNO ID: [id number] Author: DOLORES HODGE APRN.CNP Service: ? Author Type: Nurse Practitioner Type: Progress Notes Filed: 03/07/2024 08:31 Note Text: Special Officer Automat offered: Patient declines. Oziel is a 38 year old who presents for an annual gynecologic exam without complaints. Reports she has noticed change to breast - thicker tissue to left breast. Menses: cycles every 30 daysand 4 days of flow. Contraception: combined hormonal contraceptives HPV vaccine: No Last Pap: 02/24/2023 abnormal, ASCUS HPV: 02/25/2023 negative History of abnormal pap: Yes Last mammogram: 2013 for nipple discharge, benign Sexually active: Yes History of STDS: None Patient concerns for STD exposure: No. Pain with intercourse: No Postcoital bleeding: No Exercise: walking OB History T2 L2 SAB0 IAB0 Ectopic0 Multiple0 Live Births2 Local [employer] History LMP: 02/08/2024 (Exact Date), Having periods Age at Menarche: Age at First : Age at Menopause: [employer] History Comments: Sexual Activity: Yes; Male Contraception: Pill PAST MEDICAL HISTORY Diagnosis Date Hemorrhoids Hernia of unspecified site of abdominal cavity without mention of obstruction or gangrene epigastric hernia repaired PAST SURGICAL HISTORY Procedure Laterality Date DELIVERY ONLY 12/22/07 and 2010 PAST SURGICAL HISTORY OF repair of incarcerated epigastric hernia FAMILY HISTORY Problem Relation Age of Onset Breast Cancer Mother Cancer Father Bladder cancer Diabetes Maternal Grandfather Diabetes Paternal Grandfather Heart Sister heart murmur SOCIAL HISTORY Social History Tobacco Use Smoking status: Never Passive exposure: Never Smokeless tobacco: Never Vaping Use Vaping status: Never Used Substance Use Topics Alcohol use: Yes Alcohol/week: 1.0 standard drink of alcohol Types: 1 Glasses of Wine (5oz) per week Comment: occ Drug use: No REVIEW OF SYSTEMS Abdomen: No abdominal pain, nausea, vomiting, diarrhea, or constipation. No bloating, early satiety, indigestion, or increased flatulence. Bladder: No dysuria, gross hematuria, urinary frequency, urinary urgency, or incontinence. Breast: No breast lumps, nipple d/c, overlying skin changes, redness or skin retraction. + thicker tissue to left breast Allergies and current medication updated:Yes SENSITIVE EXAM: The sensitive examination was discussed with the Patient or Patient's Authorized Snack Stewardess. As applicable, any other physician, advance practice provider, medical student, or other health professional student that will be observing or involved in the sensitive examination for educational or training purposes was discussed with the Patient or Authorized Snack Stewardess. The Patient or Authorized Snack Stewardess has agreed to proceed with the sensitive examination. (Sensitive examination includes inspection and/or palpation of the breasts, pelvis, prostate and anorectal regions). EXAM: BP 110/64 Ht 5' 3.217 (1.61m) Wt 173 lb (78.5kg) LMP 02/08/2024 BMI 30.42 kg/(m2). GENERAL: pleasant, female in no apparent distress HEENT: Normocephalic, atraumatic, mucus membranes moist, and no lesions NECK: Supple, full range of motion, no adenopathy, and thyroid normal DERMATOLOGY: Normal, without lesions, non-icteric, and non-hirsute BREAST: soft, non-tender, symmetric, no dominant mass, normal nipple-areolar complex, no lymphadenopathy, and no nipple discharge + fibrocystic to left breast CHEST: Normal inspiratory effort ABDOMEN: soft, non-tender, and no masses PELVIC: + mild erythema to superior bilateral labia majora, normal Bartholin's glands, urethra, [place]'s glands, + 3 mm raised mole to left labia majora, + nabothian cysts, good vaginal support, physiologic discharge present, normal appearing perineal body and perianal region BIMANUAL: uterus normal size, shape and consistency, no adnexal masses + tenderness to right ovary RECTOVAGINAL: deferred NEURO: alert and oriented x3,exam grossly non-focal EXTREMITIES: normal ASSESSMENT/PLAN: 1) Health maintenance: Pap/HPV up to date. Co testing in 2025. Mammogram ordered. Nutrition, exercise and routine health maintenance exams reviewed. HPV vaccine: literature provided 2) Contraception: combined hormonal contraceptives. Denies migraines with aura, VTE history or clotting disorder, hypertension, or liver issues. Does not smoke. Reviewed increased risk of blood clots, heart attack, stroke, and possibly breast cancer. 3) STD screening: Declined STD check. 4) Follow up one year or sooner as needed Encounter for screening mammogram for malignant neoplasm of breast - ICD9: V76.12, ICD10: Z12.31 - Left breast palpates as fibrocystic - Reviewed aggravating and relieving factors - Recommend early screening mammograms due to family history - Check with insurance to verify coverage Family history of malignant neoplasm o (more content not included)...[facility]12-18-2024 History of Present illness Narrative* Dolores Hodge APRN.LAILA - 03/07/2024 7:59 AM EST Special Officer Automat offered: Patient declines. Oziel is a 38 year old who presents for an annual gynecologic exam without complaints. Reports she has noticed change to breast - thicker tissue to left breast. Menses: cycles every 30 daysand 4 days of flow. Contraception: combined hormonal contraceptives HPV vaccine: No Last Pap: 02/24/2023 abnormal, ASCUS HPV: 02/25/2023 negative History of abnormal pap: Yes Last mammogram: 2013 for nipple discharge, benign Sexually active: Yes History of STDS: None Patient concerns for STD exposure: No. Pain with intercourse: No Postcoital bleeding: No Exercise: walking OB History T2 L2 SAB0 IAB0 Ectopic0 Multiple0 Live Births2 Local [employer] History LMP: 02/08/2024 (Exact Date), Having periods Age at Menarche: Age at First : Age at Menopause: [employer] History Comments: Sexual Activity: Yes; Male Contraception: Pill PAST MEDICAL HISTORY Diagnosis Date Hemorrhoids Hernia of unspecified site of abdominal cavity without mention of obstruction or gangrene epigastric hernia repaired PAST SURGICAL HISTORY Procedure Laterality Date DELIVERY ONLY 12/22/07 and 2010 PAST SURGICAL HISTORY OF repair of incarcerated epigastric hernia FAMILY HISTORY Problem Relation Age of Onset Breast Cancer Mother Cancer Father Bladder cancer Diabetes Maternal Grandfather Diabetes Paternal Grandfather Heart Sister heart murmur SOCIAL HISTORY Social History Tobacco Use Smoking status: Never Passive exposure: Never Smokeless tobacco: Never Vaping Use Vaping status: Never Used Substance Use Topics Alcohol use: Yes Alcohol/week: 1.0 standard drink of alcohol Types: 1 Glasses of Wine (5oz) per week Comment: occ Drug use: No REVIEW OF SYSTEMS Abdomen: No abdominal pain, nausea, vomiting, diarrhea, or constipation. No bloating, early satiety, indigestion, or increased flatulence. Bladder: No dysuria, gross hematuria, urinary frequency, urinary urgency, or incontinence. Breast: No breast lumps, nipple d/c, overlying skin changes, redness or skin retraction. + thicker tissue to left breast Allergies and current medication updated:Yes SENSITIVE EXAM: The sensitive examination was discussed with the Patient or Patient's Authorized Snack Stewardess. As applicable, any other physician, advance practice provider, medical student, or other health professional student that will be observing or involved in the sensitive examination for educational or training purposes was discussed with the Patient or Authorized Snack Stewardess. The Patient or Authorized Snack Stewardess has agreed to proceed with the sensitive examination. (Sensitive examination includes inspection and/or palpation of the breasts, pelvis, prostate and anorectal regions). EXAM: BP 110/64 Ht 5' 3.217 (1.61m) Wt 173 lb (78.5kg) LMP 02/08/2024 BMI 30.42 kg/(m^2). GENERAL: pleasant, female in no apparent distress HEENT: Normocephalic, atraumatic, mucus membranes moist, and no lesions NECK: Supple, full range of motion, no adenopathy, and thyroid normal DERMATOLOGY: Normal, without lesions, non-icteric, and non-hirsute BREAST: soft, non-tender, symmetric, no dominant mass, normal nipple-areolar complex, no lymphadenopathy, and no nipple discharge + fibrocystic to left breast CHEST: Normal inspiratory effort ABDOMEN: soft, non-tender, and no masses PELVIC: + mild erythema to superior bilateral labia majora, normal Bartholin's glands, urethra, [place]'s glands, + 3 mm raised mole to left labia majora, + nabothian cysts, good vaginal support, physiologic discharge present, normal appearing perineal body and perianal region BIMANUAL: uterus normal size, shape and consistency, no adnexal masses + tenderness to right ovary RECTOVAGINAL: deferred NEURO: alert and oriented x3,exam grossly non-focal EXTREMITIES: normal ASSESSMENT/PLAN: 1) Health maintenance: Pap/HPV up to date. Co testing in 2025. Mammogram ordered. Nutrition, exercise and routine health maintenance exams reviewed. HPV vaccine: literature provided 2) Contraception: combined hormonal contraceptives. Denies migraines with aura, VTE history or clotting disorder, hypertension, or liver issues. Does not smoke. Reviewed increased risk of blood clots, heart attack, stroke, and possibly breast cancer. 3) STD screening: Declined STD check. 4) Follow up one year or sooner as needed Encounter for screening mammogram for malignant neoplasm of breast - ICD9: V76.12, ICD10: Z12.31 - Left breast palpates as fibrocystic - Reviewed aggravating and relieving factors - Recommend early screening mammograms due to family history - Check with insurance to verify coverage Family history of malignant neoplasm of breast - ICD9: V16.3, ICD10: Z80.3 - CONSULT TO MEDICAL GENETICS - GENERAL Discussed tenderness to right ovary with palpation. Oziel reports this pain is always present with period. Discussed ultrasound - declines at this time. If pain continues after period or worsens, to notify and will obtain ultrasound. Dolores Hodge APRN.LAILA [facility] History of Present illness Narrative* Jenae Rosa APRN.CNP - 02/11/2023 9:40 AM EST Special Officer Automat offered: Patient declines. Oziel is a 37 year old who presents for an annual gynecologic exam without complaints. Menses: cycles every 30 days and 4 days of flow. Contraception: combined hormonal contraceptives HPV vaccine: No Last Pap: 12/09/2017 normal HPV: 12/06/2017 negative History of abnormal pap: No Last mammogram: Prior history of mammogram and ultrasound in 2013, was told there were benign findings and has not had follow up since Sexually active: Yes Patient concerns for STD exposure: No. OB History T2 L2 SAB0 IAB0 Ectopic0 Multiple0 Live Births2 Local [employer] History LMP: 01/19/2023 (Exact Date), Having periods Age at Menarche: Age at First : Age at Menopause: [employer] History Comments: Sexual Activity: Yes; Male Contraception: Pill PAST MEDICAL HISTORY Diagnosis Date Hemorrhoids Hernia of unspecified site of abdominal cavity without mention of obstruction or gangrene epigastric hernia repaired PAST SURGICAL HISTORY Procedure Laterality Date DELIVERY ONLY 12/22/07 and 2010 PAST SURGICAL HISTORY OF repair of incarcerated epigastric hernia FAMILY HISTORY Problem Relation Age of Onset Breast Cancer Mother Cancer Father Bladder cancer Diabetes Maternal Grandfather Diabetes Paternal Grandfather Heart Sister heart murmur SOCIAL HISTORY Social History Tobacco Use Smoking status: Never Passive exposure: Never Smokeless tobacco: Never Vaping Use Vaping Use: Never used Substance Use Topics Alcohol use: Yes Alcohol/week: 1.0 standard drink of alcohol Types: 1 Glasses of Wine (5oz) per week Comment: occ Drug use: No REVIEW OF SYSTEMS Abdomen: No abdominal pain, nausea, vomiting, diarrhea, or constipation. No bloating, early satiety, indigestion, or increased flatulence. Bladder: No dysuria, gross hematuria, urinary frequency, urinary urgency, or incontinence. Breast: No breast lumps, nipple d/c, overlying skin changes, redness or skin retraction. Allergies and current medication updated:Yes EXAM: Ht 5' 3 (1.60m) Wt 164 lb 9.6 oz (74.7kg) LMP 01/19/2023 BMI 29.16 kg/(m^2). GENERAL: pleasant, female in no apparent distress HEENT: Normocephalic, atraumatic, mucus membranes moist, and no lesions NECK: Supple, full range of motion, no adenopathy, and thyroid normal DERMATOLOGY: Normal, without lesions, non-icteric, and non-hirsute BREAST: soft, non-tender, symmetric, no dominant mass, normal nipple-areolar complex, no lymphadenopathy, and no nipple discharge CHEST: Normal inspiratory effort ABDOMEN: soft, non-tender, and no masses PELVIC: external genitalia normal, normal Bartholin's glands, urethra, [place]'s glands, no vulvar lesions, no cervical lesions, good vaginal support, physiologic discharge present, normal appearing perineal body and perianal region BIMANUAL: uterus normal size, shape and consistency, no adnexal masses, and non-tender RECTOVAGINAL: deferred. NEURO: alert and oriented x3,exam grossly non-focal EXTREMITIES: normal ASSESSMENT/PLAN: 1) Health maintenance: Pap done with HPV. Mammogram starting age 40. Nutrition, exercise and routine health maintenance exams reviewed. Calcium/Vitamin D supplementation information provided. 2) Contraception: combined hormonal contraceptives. Contraceptive options reviewed and information provided. 3) STD screening: Declined STD check. 4) Follow up one year or sooner as needed Jenae Rosa APRN.CNP [facility] Miscellaneous Notes* Telephone Encounter - Claire Barillas RN - 01/01/2022 12:39 PM EDT Patient request for medication is as follows: Requested Prescriptions Pending Prescriptions Disp Refills norgestimate 0.25 mg-ethinyl estradiol 35 mcg (SPRINTEC) 0.25-35 mg-mcg per tablet 28 tablet 1 Sig: Take 1 tablet by mouth once daily. Next annual exam: 02/05/22 Please approve the above prescription(s) to electronically send to pharmacy. Claire Barillas RN documented [facility] History of Past illness Narrative* Problem Noted Date Resolved Date Nipple discharge 01/30/2014 07/13/2016 Excessive growth affec ting management of mother, antepartum 12/05/2007 12/29/2007 Supervision of normal first 04/11/2007 12/29/2007 documented as of this encounter (statuses as of 01/01/2022) [facility] History of Past illness Narrative* Problem Noted Date Diagnosed Date Resolved Date Nipple discharge 01/30/2014 07/13/2016 Excessive growth affec ting management of mother, antepartum 12/05/2007 12/29/2007 Supervision of normal first 04/11/2007 12/29/2007 documented as of this encounter (statuses as of 02/11/2023) [facility] note* Diagnosis General counseling for prescription of oral contraceptives documented in this encounter [facility] note* Diagnosis Onset Date Resolution Status Cystitis acute [facility] Work Phone: Evaluation note* Diagnosis Onset Date Resolution Status Cystitis acute UTI (urinary tract infection) acute [facility] Work Phone: Evaluation note* Diagnosis Encounter for gynecological examination (general) (routine) without abnormal findings- Primary General counseling for prescription of oral contraceptives Screening for cervical cancer Screening for malignant neoplasm of the cervix Encounter for screening for human papillomavirus (HPV) Special screening examination for human papillomavirus (HPV) documented [facility] this encounter [facility]* Diagnosis Encounter for gynecological examination (general) (routine) without abnormal findings- Primary General counseling for prescription of oral contraceptives Screening for cervical cancer Screening for malignant neoplasm of the cervix Screening for HPV (human papillomavirus) Special screening examination for human papillomavirus (HPV) Encounter for screening mammogram for malignant neoplasm of breast Other screening mammogram Family history of malignant neoplasm of breast [facility]* Diagnosis Encounter for screening mammogram for malignant neoplasm of breast Other screening mammogram [facility] this encounter [facility]* Diagnosis Abnormal mammogram- Primary Abnormal mammogram, unspecified documented in this encounter [facility] noteNo assessment information availableSanta [facility] Work Phone: Reason for referral (narrative)* Diagnostic Procedure Only (Routine) - New Request Specialty Diagnoses / Procedures Referred By Sindy naidu Referred To Contact [facility] Diagnoses Abnormal mammogram Procedures ERNA DIAGNOSTIC LEFT DIAGNOSTIC MAMMOGRAPHY COMPUTER-AIDED DETCJ UNI Jenae Rosa APRN.IMPORT MANAGER [address] [place] [address] [facility] [address] [place] [id number] Referral ID Status Reason Start Date Expiration Date Visits Requested Visits Authorized [id number] New Request Auto-Generat ed Referral 4 04/11/2025 1 1 * Diagnostic Procedure Only (Routine) - New Request Specialty Diagnoses / Procedures Referred By Sindy naidu Referred To Contact [facility] Diagnoses Abnormal mammogram Procedures US BREAST LTD LEFT US BREAST UNI REAL TIME WITH IMAGE LIMITED Jenae Rosa APRN.IMPORT MANAGER [address] [place] [address] [facility] [address] [place] [address] Referral ID Status Reason Start Date Expiration Date Visits Requested Visits Authorized [id number] New Request Auto-Generat ed Referral 4 04/11/2025 1 1 [facility] (narrative)No reason for referral information availableBlGlendale [facility] Work Phone: Reason for visit Narrative* Diagnostic Procedure Only (Routine) - Closed Specialty Diagnoses / Procedures Referred By Sindy naidu Referred To Contact [facility] Diagnoses Encounter for screening mammogram for malignant neoplasm of breast Procedures ERNA SCREENING W ARNULFO SCREENING DIGITAL BREAST TOMOSYNTHESIS BI SCREENING MAMMOGRAPHY BI 2-VIEW BREAST INC Dolores Ontiveros APRN.IMPORT MANAGER [address] [place] [address] [facility] [address] [place] [address] Referral ID Status Reason Start Date Expiration Date V isits Requested Visits Authorized [id number] Closed Auto-Generate d Referral 03/07/2024 04/06/2025 1 1 [facility] Chief Complaint and Reason for Visit Chief Complaint CONCERN FOR UTI Dysuria Reason for Visit Cystitis Chief Complaint CONCERN FOR UTI Dysuria CONCERN FOR UTI Reason for Visit Cystitis UTI (urinary tract infection) Chief Complaint Admit Date CONCERN FOR UTI October 08, 2024 12:3 2pm Family History No Family History Records Found Relationship Condition Age at Onset Recorded Date/T lois mother Malignant neoplasm of skin Unknown Malignant neoplasm of ovary Unknown father Malignant neoplasm of urinary bladder Unk nown Reason for Referral Specialty Diagnoses / Procedures Referred By Sindy naidu Referred To Contact Diagnoses Family history of malignant neoplasm of breast Procedures CONSULT TO MEDICAL GENETICS - GENERAL OFFICE/OUTPATIENT [facility] 60 MINUTES MEDICAL GENETICS COUNSELING EACH 30 MINUTES Dolores Hodge APRN.LAILA [address] [place] [address] [facility] Medicine [id number] [place] [address] Referral ID Status Reason Start Date Expiration Date Visits Requested Visits Authorized [id number] Pending Review PCP Requested Referral Auto-Generate d Referral 03/07/2025 1 1 Specialty Diagnoses / Procedures Referred By Sindy naidu Referred To Contact [facility] Diagnoses Encounter for screening mammogram for malignant neoplasm of breast Procedures ERNA SCREENING W ARNULFO SCREENING DIGITAL BREAST TOMOSYNTHESIS BI SCREENING MAMMOGRAPHY BI 2-VIEW BREAST INC CAD Dolores Hodge APRN.IMPORT MANAGER [address] [place] [address] [facility] [address] [place] [address] Referral ID Status Reason Start Date Expiration Date V isits Requested Visits Authorized [id number] Closed Auto-Generate d Referral 03/07/2024 04/06/2025 1 1 Summary Purpose Advance Directives No Advanced Directives Records FoundNo Advanced Directives Records Found Additional Source Comments Source Comments (unrecognize d section and content) In the event this informatio n is protected by the Federal Confidentiality of Alcohol and Drug Abuse Patient Records regulations: The Federal rules restrict any use of the information to criminally investigate or prosecute any alcohol or drug abuse patient.[facility] HospitalIn the event this information is protected by the Federal Confidentiality of Alcohol and Drug Abuse Patient Records regulations: The Federal rules restrict any use of the information to criminally investigate or prosecute any alcohol or drug abuse patient.[facility] HospitalIn the event this information is protected by the Federal Confidentiality of Alcohol and Drug Abuse Patient Records regulations: The Federal rules restrict any use of the information to criminally investigate or prosecute any alcohol or drug abuse patient.[facility] HospitalIn the event this information is protected by the Federal Confidentiality of Alcohol and Drug Abuse Patient Records regulations: The Federal rules restrict any use of the information to criminally investigate or prosecute any alcohol or drug abuse patient.[facility] HospitalIn the event this information is protected by the Federal Confidentiality of Alcohol and Drug Abuse Patient Records regulations: The Federal rules restrict any use of the information to criminally investigate or prosecute any alcohol or drug abuse patient.[facility] HospitalIn the event this information is protected by the Federal Confidentiality of Alcohol and Drug Abuse Patient Records regulations: The Federal rules restrict any use of the information to criminally investigate or prosecute any alcohol or drug abuse patient.[facility] HospitalIn the event this information is protected by the Federal Confidentiality of Alcohol and Drug Abuse Patient Records regulations: The Federal rules restrict any use of the information to criminally investigate or prosecute any alcohol or drug abuse patient.[facility] Reason for Visit (unrecogniz ed section and content) Reason Onset Date Comments Refill Request 01/01/2022 Reason Comments Yearly Exam Reason Comments Well Woman Reason Comments Orders Reason Comments Radiology Mammogram Care Teams (unrecognized sec tion and content) Team Status: Active Member Role Status Dates Dinesh Coleman Family Provider Active Dr. Mata Morrison MD Primary Care Provider Active Team Status: Inactive Member Role Status Dates Dr. Mata Morrison MD Primary Care Provider, Referring Provider Active JOCY Espinoza Attending Provider Active Team Status: Inactive Member Role Status Dates Dr. Mata Morrison MD Primary Care Provider Active JOCY Espinoza Attending Provider, Referring Provi ir[place]a Active Team Status: Inactive Member Role Status Dates Dr. Mata Morrison MD Primary Care Provider, Referring Provider Active JOCY Sharp Attending Provider Active Team Status: Inactive Member Role Status Dates Dr. Mata Morrison MD Primary Care Provider Active JOCY Sharp Attending Provider, Referring Pr ovider Active Team Status: Active Member Role/Relationship Status Dates Dinesh Coleman Family Provider Active Dr. Mata Morrison MD Primary Care Provider Active Team Status: Inactive Member Role/Relationship Status Dates Dr. Mata Morrison MD Primary Care Provider Active Start: October 08, 2024 End: October 08, 2024 Dr. Mata Morrison MD Referring Provider Active S tart: October 08, 2024 End: October 08, 2024 JOCY Sharp Attending Provider Active Start: October 08, 2024 End: October 08, 2024 Team Status: Inactive Member Role/Relationship Status Dates Dr. Mata Morrison MD Primary Care Provider Active Start: October 08, 2024 End: October 08, 2024 JOCY Sharp Attending Provider Active Start: October 08, 2024 End: October 08, 2024 Goals (unrecognized section and content) Goals may be documented in a n alternate sectionGoals may be documented in an alternate sectionGoals may be documented in an alternate sectionGoals may be documented in an alternate section INFORMATION SOURCE (unrecogn ized section and content) DATE CREATED AUTHOR 05/25/2024 [facility] DATE CREATED AUTHOR AUTHOR'S ORGANIZ ATION 10/11/2024 [facility] FOR RECORDS PERTAINING TO PATIENTS WHO ARE OR HAVE BEEN ENROLLED IN A CHEMICAL DEPENDENCY/SUBSTANCEABUSE PROGRAM, SOME INFORMATION MAY BE OMITTED. This clinical summary was aggregated from multiple sources. Caution should be exercised in using it in the provision of clinical care. This summary normalizes information from multiple sources, and as a consequence, information in this document may materially change the coding, format and clinical context of patient data. In addition, data may be omitted in some cases. CLINICAL DECISIONS SHOULD BE BASED ON THE PRIMARY CLINICAL RECORDS. [employer] provides no warranty or guarantee of the accuracy or completeness of information in this document.
== END | disposition home or self-care (01) ==
LOC: MTRAD 13:09
PROVIDERS: PCP Family Medicine; Referring Provider Family Medicine; Visit Provider Family Medicine
DX: R39.89 Other symptoms and signs involving the genitourinary system (principal)
CPT/HCPCS: 74022

== ENCOUNTER 2025-03-19 18:40 | Observation (INO) | payer BC, SELFPAY ==
[2025-03-19 18:41] VITALS: BP 147/68; PULSE 77; RESP 15; TEMP 36.3; O2SAT 100; BMI 35.1
--- NOTE | 2025-03-19 18:56 | CT_ITS ---
PROCEDURE: CT ABDOMEN/PELVIS WITHOUT CONTRAST 03/19/2025 REASON FOR EXAM: LEFT FLANK PAIN TECHNIQUE: Procedure Code: CTABDPEL Modality: CT Procedure: ABDOMEN/PELVIS WITHOUT CONT Noncontrast technique limits evaluation of the abdominal and pelvic viscera. Coronal and Sagittal reconstruction series were provided. One or more dose reduction techniques were used (e.g., Automated exposure control, adjustment of the mA and/or kV according to patient size, use of iterative reconstruction technique). RADIATION DOSE SUMMARY: CTDlvol: 14.69 mGy DLP: 759.61 mGycm COMPARISON: 10/17/2020 FINDINGS: Lung bases: Clear. Liver: Unremarkable. Gallbladder: Unremarkable. Spleen: Unremarkable. Pancreas: Unremarkable. Adrenals: Unremarkable. Kidneys: Unremarkable. No urolithiasis or hydroureteronephrosis. Bladder: Unremarkable. Reproductive Organs: Enlarged edematous appearing left ovary which is also somewhat abnormally elevated and anterior in position, concerning for ovarian torsion. Unremarkable appearance of the uterus and right ovary. Bowel: No evidence of obstruction or active inflammatory process. Normal appendix. Lymph nodes: No suspicious lymph node enlargement. Vasculature: Normal in course and caliber. Peritoneum / Retroperitoneum: No ascites or free air. Bones: No significant abnormality. CT/Abdomen/Pelvis without Cont IMPRESSION: Enlarged edematous left ovary concerning for ovarian torsion, or possible mass lesion. Recommend gynecologic consult. Dedicated pelvic ultrasound may be helpful to further evaluate. Findings communicated via telephone with provider Mikhail Luis 03/19/2025 at 6: 51 p.m. [employer] Reading Location: [id number]
--- NOTE | 2025-03-19 18:59 | EDS_ITS ---
HPI HPI - Female History of Present Illness Chief Complaint: Flank Pain Narrative Narrative: Chief complaint and HPI: 39-year-old female with past medical history of recurrent UTI presents for evaluation of left flank pain. Patient states for the past several days she has been having left-sided flank pain. Described as sharp. Intermittent. Triage note states that she is having hematuria. She denies this to me. States she is having vaginal bleeding. States she started her menstrual cycle today which is approximately 9 days early. She denies any dysuria. She denies any fever, chills, shortness of breath, chest pain, nausea, vomiting, constipation, diarrhea. No concern for STI. Is sexually active but does not believe herself to be . Review of systems: See HPI Medications: As listed on the chart Allergies: As listed on the chart PFSH: Per chart Vital signs: As listed on the chart. Reviewed. Physical exam: Gen: A&O x3, NAD Head: Normocephalic, atraumatic Eyes: No sclera icterus, conjunctiva clear ENT: Moist mucous membranes CV: RRR, no murmurs Resp: Lungs CTA BL, no w/r/c GI: Abd soft, non-distended, non-tender, no r/r/g : No CVA tenderness Musc: Full ROM, no deformity Skin: Warm, dry Psych: Cooperative, appropriate mood and affect PFS PFSH Medical History UTI (urinary tract infection) Elevated C-reactive protein (CRP) Hemorrhoids Right upper quadrant abdominal pain with positive Knapp's Sign Diarrhea Nausea Abdominal pain Home Medications ?Medication ?Instructions ?Recorded ?Last Taken ?Type NK 03/19/25 Unknown History Allergy/AdvReac Type Severity Reaction Status Date / Time No Known Allergies Allergy Verified 03/19/25 18:42 Family History Mother Skin cancer Ovarian cancer Father Bladder cancer Surgical History History of Hx of hernia repair Social History (Updated 03/19/25 @ 18:57 by Dolores Mlils) housing: house Smoking Status: Never smoker second hand exposure: No alcohol intake: never substance use type: does not use caffeine: Yes what type of physical activity do you participate in: walking frequency: 3-4 times per week EXAM Physical Exam Const Vital Signs: 03/19/25 18:41 03/19/25 21:05 Temperature 97.4 F L 98.4 F Temperature Source Temporal Oral Pulse Rate 77 104 H Respiratory Rate 15 16 Blood Pressure 147/68 H 124/79 H Blood Pressure Mean 94 94 Pulse Ox 100 100 Oxygen Delivery Method Room Air Room Air MDM MDM MDM Narrative Medical decision making narrative: 39-year-old female with past medical history of recurrent UTI presents for evaluation of left flank pain. Patient states for the past several days she has been having left-sided flank pain. Described as sharp. Intermittent. Triage note states that she is having hematuria. She denies this to me. States she is having vaginal bleeding. States she started her menstrual cycle today which is approximately 9 days early. She denies any dysuria. She denies any fever, chills, shortness of breath, chest pain, nausea, vomiting, constipation, diarrhea. No concern for STI. Is sexually active but does not believe herself to be . Differential diagnoses includes but is not limited to urolithiasis, UTI, pyelonephritis, , dysmenorrhagia, dysfunctional uterine bleeding. NS bolus, morphine, Zofran ordered. Laboratory workup ordered including CT abdomen pelvis without contrast. CBC unremarkable. CMP unremarkable. Lipase unremarkable. CT abdomen pelvis results were personally relayed to me by the radiologist. The left ovary is edematous and enlarged also somewhat abnormally elevated in anterior position, concerning for ovarian tor saida. Unremarkable appearance of the uterus and right ovary. Given this information transvaginal ultrasound was ordered. Will reach out to CATALOGING ASSISTANT as patient follows with Dr. Zimmer. I spoke with Dr. Hood. She will await the transvaginal ultrasound results. Patient currently in ultrasound. UA positive for blood and pyuria. Negative for bacteria and nitrates. Urine culture sent. Transvaginal ultrasound shows asymmetric enlargement of left ovary. No adnexal mass. Both was demonstrated within bilateral ovaries on color Doppler but given the abnormal appearance of the left ovary on CT concern for ovarian torsion remains which may be intermittent. Note that ovarian torsion is not excluded by the presence of flow on color Doppler. Edematous enlargement is more sensitive/specific finding. Given the findings Dr. Hood was consulted again and patient was discussed. Dr. Hood suspects this is likely a corpus luteum hemorrhagic cyst. However given patient is still having flank pain will admit for observation at this time. Patient was updated of all the results and confirmed understanding of the plan. Impression: 1. Left flank pain 2. Possible left intermittent ovarian torsion versus cyst 3. Pyuria Lab Data Labs: Laboratory Results - last 24 hr 03/19/25 03/19/25 19:06 19:08 WBC 7.8 RBC 4.38 Hgb 12.1 Hct 37.6 MCV 85.8 MCH 27.6 MCHC 32.2 RDW Std Deviation 38.7 RDW Coeff of Christina 12.4 Plt Count 374 MPV 9.4 Immature Gran % (Auto) 0.100 Neut % (Auto) 46.5 L Lymph % (Auto) 39.3 Grand % (Auto) 11.8 H Eos % (Auto) 1.7 Baso % (Auto) 0.6 Absolute Neuts (auto) 3.6 Absolute Lymphs (auto) 3.05 Nucleated RBC % 0 Sodium 138 Potassium 3.8 Chloride 102 Carbon Dioxide 24.7 Anion Gap 11 BUN 17 Creatinine 0.85 Estim Creat Clear Calc 91.94 Est GFR (MDRD) Non-Af 91 BUN/Creatinine Ratio 20.4 H Glucose 103 H Calcium 8.9 Total Bilirubin 0.24 AST 23 ALT 19 Alkaline Phosphatase 84 Total Protein 7.5 Albumin 4.3 Globulin 3.2 Albumin/Globulin Ratio 1.3 Lipase 15 Urine Color Yellow Urine Clarity Sl. Cloudy Urine pH 6.0 Ur Specific [place] 1.020 Urine Protein 15 H Urine Glucose (UA) Normal Urine Ketones Negative Urine Occult Blood 250 H Urine Nitrite Negative Urine Bilirubin Negative Urine Urobilinogen Normal Ur Leukocyte Esterase 100 H Urine RBC 5-10 SEEN Urine WBC 5-10 SEEN Ur Squamous Epith Cells 0-5 SEEN Urine Bacteria RARE Urine Mucus 0 SEEN Urine Test Negative Radiography Diagnostic Testing: Clinical Impression(s) from Imaging Studies Abdomen/Pelvis CT 03/19/25 18:56 IMPRESSION: Enlarged edematous left ovary concerning for ovarian torsion, or possible mass lesion. Recommend gynecologic consult. Dedicated pelvic ultrasound may be helpful to further evaluate. Findings communicated via telephone with provider Mikhail Luis 03/19/2025 at 6:51 p.m. [employer]. Reading Location: [facility] Transvaginal US 03/19/25 19:56 IMPRESSION: Asymmetric enlargement of the left ovary. No adnexal mass. Blood flow is demonstrated within bilateral ovaries on color Doppler, but given the abnormal appearance of the left ovary on CT concern for ovarian torsion remains, which may be intermittent. Note that ovarian torsion is not excluded by the presence of flow on color Doppler. Edematous enlargement is a more sensitive/specific finding. Reading Location: [facility] Discharge Plan Triage Chief Complaint: Flank Pain ED Provider: Mikhail Villarreal Dx/Rx/DC Orders Prescriptions: No Action NK Primary Care Provider: Roshni Jorgensen Referrals: Roshni Jorgensen MD [Primary Care Provider, Family Practice] Print Language: [place]
[2025-03-19 19:10] LABS: Mucous, Urine 0 SEEN /hpf (<or=2+)
[2025-03-19 19:11] LABS: Color, Urine Yellow (Yellow); Glucose, Dipstick Normal (Normal); Ketone-Dipstick Negative (Negative); Leukocyte Esterase-Dipstick 100 /ul (Negative); Nitrite-Dipstick Negative (Negative); Occult Blood-Urine 250 /ul (Negative); Protein-Dipstick 15 mg/dl (Negative); Specific Gravity, Urine 1.020 (1.002-1.030); Urine Bilirubin Dipstick Negative (Negative)
[2025-03-19] MEDS: 0.9% Normal Saline (1000mL) 1,000 ML 999 ML IV (19:12)
[2025-03-19 19:17] LABS: Internal QC Validated? YES +Cl - CLEAR BKGD; Pregnancy, Urine Negative Negative
[2025-03-19 19:18] LABS: Hematocrit 37.6 % (37-47); Hemoglobin 12.1 g/dL (12.0-15.0); Immature Granulocytes Count 0.010 X10^3/uL (0.0-0.0); Mean Corp Hgb Conc 32.2 g/dL (32-36); Mean Corpuscular Volume 85.8 fL (81-99); Mean Platelet Vol. 9.4 fl (6.2-12.0); NRBC Flagged by Analyzer 0 % (0-5); Platelet Count 374 K/mm3 (150-450); RBC Distribution Width CV 12.4 % (11.6-14.6); RBC Distribution Width SD 38.7 fl (35.1-43.9); Red Blood Count 4.38 M/mm3 (4.2-5.4); White Blood Count 7.8 K/mm3 (4.4-11.0)
[2025-03-19 19:38] LABS: AST(SGOT) 23 U/L (<=31); Alanine Aminotransfer ALT/SGPT 19 U/L (<=34); Albumin, Serum 4.3 g/dL (3.5-5.0); Alkaline Phosphatase 84 U/L (35-104); Anion Gap 11 (7-18); BUN 17 mg/dL (4-19); BUN/Creat Ratio 20.4 RATIO (10-20); Calcium,Total 8.9 mg/dL (7.6-11.0); Carbon Dioxide 24.7 mmol/L (20.0-29.0); Chloride 102 mmol/L (96-106); Estimated Creatinine Clearance 91.94 ml/min (50-250); Globulin 3.2 g/dL (2.2-4.2); Glucose 103 mg/dL (70-99); Lipase 15 U/L (13-75); Potassium 3.8 mmol/L (3.5-5.1)
[2025-03-19 19:44] LABS: Red Blood Cells-Urine 5-10 SEEN /hpf (0-5)
[2025-03-19 19:46] LABS: Squamous Epithelial Cells - UA 0-5 SEEN /hpf (5-10)
--- NOTE | 2025-03-19 19:56 | US_ITS ---
PROCEDURE: US TRANSVAGINAL NON- 03/19/2025 REASON FOR EXAM: CONCERN FOR L OVARIAN TORSION ON CT TECHNIQUE: Procedure Code: USTVAG Modality: US Procedure: TRANSVAGINAL NON- COMPARISON: CT abdomen/pelvis earlier same day 03/19/2025. FINDINGS: Anteverted uterus appears normal in size and smooth in contour. No discrete uterine myoma. Endometrial stripe complex appears within normal limits measuring 0.9 cm in thickness. No abnormal collection is seen in the uterine cavity. Right ovary is sonographically normal, measuring 3.6 x 2.4 x 2.2 cm. Small functional follicles. Blood flow is demonstrated within the right ovary on color Doppler. No adnexal mass. Left ovary is asymmetrically enlarged measuring 4.5 x 3.3 x 2.5 cm. No adnexal mass appreciated. Blood flow is demonstrated within the left ovary on color Doppler. No free pelvic fluid is visualized. US/Transvaginal Non- IMPRESSION: Asymmetric enlargement of the left ovary. No adnexal mass. Blood flow is demo nstrated within bilateral ovaries on color Doppler, but given the abnormal appearance of the left ovary on CT concern for ovarian torsion remains, which may be intermittent. Note that ovarian torsion is not excluded by the presence of randa w on color Doppler. Edematous enlargement is a more sensitive/specific finding. Reading Location: [id number]
--- OUTSIDE RECORDS SUMMARY | 2025-03-19 20:36 | XMS RPT_ITS | CCD ---
Author Organization [facility] Care Team Providers Care Slat Basket Maker Name Role Phone [place] [employer]EN FURNITURE POLISHER, Elzbieta K Unavailable Unavailable [place] [employer] FURNITURE POLISHER, Elzbieta K Unavailable Unavailable Unavailable Primary Care Provider UnavailDr. Mata Cruz Primary Care Provider Dr. Mata Morrison Referring Provider JOCY Henry Attending Provider JOCY Wilcox Attending Provider Unavailable Primary Care Provider Unavailabl e Unavailable Primary Care Provider UnavailDOLORES Zabala Referring Unavailable DOLORES HODGE Attending Unavailable Dr. Mata Morrison MD Primary Care Provider Dr. Mata Morrison MD Referring Provider Dat Wilcox Attending Provider Roshni Jorgensen MD Primary Care Provider Roshni Jorgensen MD Attending Provider Roshni Jorgensen MD Referring Provider Roshni Jorgensen Primary Care Unavailable Dat Wilcox Attending Unavailable Roshni Jorgensen Referring Unavailable Mata Morrison Referring Unavailable Mata Morrison Primary Care Unavailable Dat Wilcox Attending Unavailable [place] FILTER MACHINE OPERATOR, Mata Toro Attending Unavailable Mata Morrison Referring Unavailable Mata Morrison Primary Care Unavailable Roshni Jorgensen Attending Unavailable Roshni Jorgensen Primary Care Unavailable Roshni Jorgensen Referring Unavailable Mata Morrison Primary Care Unavailable Dat Wilcox Attending Unavailable Smith FILTER MACHINE OPERATORMata Referring Unavailable Smith FILTER MACHINE OPERATOR, Mata Toro Attending Unavailable Mata Morrison Primary Care Unavailable Medications Current Medications Medication Drug Class(es) Dates Sig (Normalized) Sig (Original) amoxicillin 875 mg oral tablet (6 sources) Penicillin-class Antibacterial Start: 11-07-2024 take 1 tablet by mouth twice daily Amoxicillin 875 mg tablet Active 875 mg PO TWICE A DAY November 07, 2024 12:00am Start: 04-15-2023 End: 04-25-2023 take 1 capsule by mouth three times daily Amoxicillin 500 mg capsule Discontinued 500 mg PO THREE TIMES A DAY 30 10 April 15, 2023 1:00am April 24, 2023 1:00am April 25, 2023 1:04am Ethinyl Estradiol / norgestimate (17 sources) Progestin, Estrogen Start: 03-07-2024 take 1 [...] TABS 1 tab po daily NORGESTIMATE-ETH ESTRADIOL [id number] Elzbieta Ko [facility] Comment on above: Take 1 tablet by luz elena th once daily. hydrocortisone 10 mg/ml / neomycin 3.5 mg/ml / polymyxin b 04237 unt/ml otic suspension (6 sources) Aminoglycoside Antibacterial, Polymyxin-class Antibacterial, Corticosteroid Start: 11-07-2024 Neomycin-Polymyxin -Hc 3.5-10,000-1 mg/mL-unit/mL-% drops,suspension Active 4 NMA OTIC THREE TIMES A DAY 10 November 07, 2024 12:00am November 16, 2024 12:00am Start: 01-29-2024 End: 02-08-2024 Wewmjlyq-Rwrtmotww-Qb 3.5-10 ,000-1 mg/mL-unit/mL-% solution Discontinued 4 NMA OTIC Q8H 10 10 January 29, 2024 1:00am February 07, 2024 1:00am February 08, 2024 1:17am L.ACID/L.CASEI/B.BIF/B.AFIA/F OS (PROBIOTIC BLEND ORAL) (7 sources) L.ACID/L.CASEI/B .BIF/B.AFIA/FOS (PROBIOTIC BLEND ORAL) Take by mouth. Active L.ACID/L.CASEI/B .BIF/B.AFIA/FOS (PROBIOTIC BLEND ORAL) Take by mouth. 0 Active Comment on above: Take by mouth. Completed/Discontinued Medications Medication Drug Class(es) Dates Sig (Normalized) Sig (Original) azithromycin 250 mg oral tablet (6 sources) Macrolide Antimicrobial Start: 03-27-2022 End: 12-27-2022 Azithromycin (Zithromax Z-Richard) 250 mg tablet Discontinued 0 PO .COMPLEX 6 0 March 27, 2022 1:00am December 27, 2022 7:41am For 250 mg dose pack: take 500 mg today (day 1), then 250 mg for 4 days (days 2-5) PO biotin 1 mg chewable tablet (8 sources) Start: 10-10-2019 End: 09-09-2020 take 1 tablet by mouth once daily Biotin 1,000 mcg tablet,chewable Discontinued 1000 ug PO DAILY October 10, 2019 12:00am September 09, 2020 6:40am BIOTIN MAXIMUM S TRENGTH 86298 MCG TABS BIOTIN [id number] Elzbieta K [place] [employer] POLISHER brompheniramine maleate 0.4 mg/ml / dextromethorphan hydrobromide 2 mg/ml / pseudoephedrine hydrochloride 6 mg/ml oral solution (1 source) alpha-Adrenergic Agonist, Uncompetitive N-vjuyhx-A-aspartate Receptor Antagonist, Sigma-1 Agonist Start: 03-06-2019 End: 01-01-2022 take 5 mL by mouth every six hours as needed for cough and cough Cvwosxzmidiivlf-Zaxiecjgz-UN (BROMFED DM) 2-30-10 mg/5 mL syrup Indications: Cough Take 5 mL by mouth four times daily as needed. 118 mL 0 03/06/2019 01/01/2022 Discontinued Comment on above: Take 5 mL by mouth f our times daily as needed. CALCIUM POLYCARBOPHIL TABS (2 sources) FIBER TABS 8 - 1 0 per day CALCIUM POLYCARBOPHIL TABS [id number] Elzbieta K [place] [employer]IT[employer] POLISHER Methylcellulose (1 source) End: 01-01-2022 METHYLCELLULOSE (FIBER THERAPY LAXATIVE ORAL) Take by mouth. 0 01/01/2022 Discontinued Comment on above: Take by mouth. MULTIPLE VITAMIN (1 source) DAILY MULTIPLE V ITAMINS TABS MULTIPLE VITAMIN [id number] Elzbieta Cardonas WOODEN FURNITURE POLISHER MULTIPLE VITAMIN (1 source) DAILY MULTIPLE V ITAMINS TABS MULTIPLE VITAMIN [id number] Elzbieta Cardonas WOODEN FURNITURE POLISHER Multivitamin preparation (9 sources) Start: 10-10-2019 End: 09-09-2020 take 1 tablet by mouth once daily Multivitamin Discontinued 1 TABLET PO DAILY October 10, 2019 12:00am September 09, 2020 6:40am multivitamin (MU LTIPLE VITAMIN ORAL) MULTIPLE VITAMIN DAILY MULTIPLE VITAMINS TABS MULTIPLE VITAMIN [id number] Elzbieta Ko CMA [facility] ([address]) Active multivitamin (MU LTIPLE VITAMIN ORAL) MULTIPLE VITAMIN DAILY MULTIPLE VITAMINS TABS MULTIPLE VITAMIN 40751231751 Elzbieta oK CMA [facility] ([address]) 0 Active Comment on above: MULTIPLE VITAMIN JASON LY MULTIPLE VITAMINS TABS MULTIPLE VITAMIN [id number] Elzbieta Ko WOODEN FURNITURE POLISHER [facility] ([address]) Multivitamin tablet (4 sources) Start: 020 End: Multivitamin tablet Discontinued 1 {tbl} PO DAILY October 10, 2019 12:00am September 09, 2020 6:40am mupirocin 0.02 mg/mg topical ointment (1 source) RNA Synthetase Inhibitor Antibacterial Start: 019 End: 022 mupirocin (BACTROBAN) 2 % ointment Indications: Skin infection Apply 1 application to affected area three times daily. 30 g 0 11/06/2018 01/01/2022 Discontinued Comment on above: Apply 1 application to affected area three times daily. nitrofurantoin, macrocrystals 25 mg / nitrofurantoin, monohydrate 75 mg oral capsule (19 sources) Nitrofuran Antibacterial Start: 025 End: 025 take 1 capsule by mouth every twelve hours at mealtime Nitrofurantoin Monohyd/M-Cryst (Macrobid) 100 mg capsule Discontinued 100 mg PO Q12H 10 5 0 October 08, 2024 12:00am October 12, 2024 12:00am October 13, 2024 12:10am must administer with a meal/food Start: 01-29-2024 [...] not open, crush, dissolve , or chew NORGESTIMATE-ETH ESTRADIOL (1 source) Start: 06-21-2016 End: 07-19-2016 take 1 tablet by mouth once daily SPRINTEC 28 0.25-35 MG-MCG TABS 1 tab po daily NORGESTIMATE-ETH ESTRADIOL [id number] Elzbieta Ko CMA omeprazole 20 mg delayed release oral capsule (6 sources) Proton Pump Inhibitor Start: 10-10-2019 End: 09-09-2020 take 1 capsule by mouth once daily Omeprazole 20 mg capsule,delayed release(DR/EC) Discontinued 20 mg PO DAILY October 10, 2019 12:00am September 09, 2020 6:40am phenazopyridine hydrochloride 100 mg oral tablet (6 sources) Start: 09-21-2022 End: 04-15-2023 take 1 tablet by mouth three times daily at mealtime for pain Phenazopyridine (Pyridium) 100 mg tablet Discontinued 100 mg PO THREE TIMES A DAY as needed for pain 7 0 September 21, 2022 12:00am April 15, 2023 9:28am administer with a full glass of water after each meal 24 hr phentermine 7.5 mg / topiramate 46 mg extended release oral capsule (4 sources) Sympathomimetic Amine Anorectic Start: 01-29-2024 End: 10-08-2024 Phentermine-Topirama te (Qsymia) 7.5-46 mg capsule, ER multiphase 24 hr Discontinued 1 NMA PO daily January 29, 2024 1:00am October 08, 2024 12:37pm Saccharomyces boulardii (2 sources) take 1 capsule by mouth once daily PROBIOTIC CAPS 1 po daily SACCHAROMYCES BOULARDII CAPS [id number] Elzbieta K [place] [employer] POLISHER take 1 capsule by mouth once jason ly PROBIOTIC CAPS 1 po daily SACCHAROMYCES BOULARDII CAPS [id number] Elzbieta K [place] [employer] POLISHER Problems Active Problems Problem Classification Problem Date Documented Da te Episodic/Chronic Abdominal pain (12 sources) Right upper quadrant pain; Translations: [Right upper quadrant pain] 10-21-2020 Episodic Contraceptive and procreative management (8 sources) Patient encounter status; Translations: [Encounter for other general counseling and advice on contraception] Onset: 03-07-2024 Episodic Genitourinary symptoms and ill-defined conditions (2 sources) Other symptoms and signs involving the genitourinary system; Translations: [Dysuria] Onset: 02-28-2024 Episodic Hemorrhoids (13 sources) Internal hemorrhoids; Translations: [Other hemorrhoids] Onset: 09-25-2009 09-25-2009 Episodic Immunizations and screening for infectious disease (1 source) Encounter for screening for human papillomavirus (HPV); Translations: [Screening for HPV (human papillomavirus)] Onset: 03-07-2024 Episodic Nausea and vomiting (6 sources) Nausea; Translations: [Nausea] 10-21-2020 Episodic Other gastrointestinal disorders (6 sources) Diarrhea; Translations: [Diarrhea, unspecified] 10-21-2020 Episodic Other screening for suspected conditions (not mental disorders or infectious disease) (11 sources) Elevated C-reactive protein; Translations: [Elevated C-reactive protein (CRP)] Onset: 03-07-2024 10-21-2020 Episodic Other screening for suspected conditions (not mental disorders or infectious disease) (2 sources) No current problems or disability 08-05-2016 Other upper respiratory infections (6 sources) Upper respiratory infection; Translations: [Acute upper respiratory infection, unspecified] 03-27-2022 Episodic Residual codes; unclassified (6 sources) History of hernia repair; Translations: [Other specified postprocedural states] 10-21-2020 Episodic Residual codes; unclassified (6 sources) Family history of breast cancer; Translations: [Family history of malignant neoplasm of breast] Onset: 03-07-2024 03-07-2024 Episodic Residual codes; unclassified (1 source) Family history of malignant neoplasm of breast; Translations: [Family history of malignant neoplasm of breast] Onset: 03-07-2024 Episodic Sprains and strains (6 sources) Thumb injury ; Translations: [Strain of right thumb] 10-21-2020 Episodic Urinary tract infections (15 sources) Cystitis; Translations: [Cystitis, unspecified without hematuria] Onset: 10-11-2024 09-21-2022 Episodic Past or Other Problems Problem Classification Problem Date Documented Da te Episodic/Chronic Nonmalignant breast conditions (5 sources) Discharge from [...] Test Name Value Interpretation Reference Range Facility Urgent Care Visit Reporton 0 11-07-2024 Urgent Care Visit Report [facility] [address] , [address] [place] [address] OFFICE VISIT Date of Service: 11/07/24 MR#: [id number] Acct: [id number] Name: OZIEL THOMAS Rep #: [id number] : 1985 Provider: JOCY Carter Age/Sex: 39/F Location: [facility] Status: Signed Intake Vital Signs 01/29/24 10:00 11/07/24 12:59 Height 5 ft 2 in BP 122/80 H Position Sitting Respiration 16 Pulse 73 Temp 98.3 F Temp Source Oral Pulse Oximetry (%) 99 Oxygen Delivery Method room air Intake Visit Reasons: SINUS PRESSURE, R EAR PAIN Chief Complaint: sinus pressure and Right ear pain Accompanied by: Self Allergies No Known Allergies Allergy (Verified 11/07/24 12:59) Medications ???Medication ???Instructions ???Recorded ???Confirmed ???Type amoxicillin 875 mg tablet 875 mg PO BID #20 tabs 11/07/24 Rx neomycin-polymyxin- hydrocort 3.5 4 drp otic (ear) TID 10 days #10 m L 11/07/24 11/07/24 Rx mg-10,000 unit/mL-1 % ear drops,susp Nurse's Note: Patient has sinus congestion that has been going on for 2.5 weeks. Patient states its all on the right side. Patient states the pressure and headache are gone. Patient woke up last night with Right ear pain that is throbbing. Gay feels like her ear is clooged but wet at the same time. Patient has tried OTC for the last 2.5 weeks and its not helping. [facility] Medical History UTI (urinary tract infection) Elevated [...] times per week HPI HPI Chief Complaint: sinus pressure and Right ear pain Details: OZIEL THOMAS, is a 39 F who presents to the office today for [facility] evaluation at the [facility] for approximately 2-1/2-week history of progressively worsening forehead and right facial pressure/congestion with purulent postnasal drip/cough and new right ear pain to touch external over last 2-3 days. No complaints of fever, chills, myalgias, fatigue, runny nose, or nausea/vomiting/adonis rrhea. No complaints of chest pain/shortness of breath/dyspnea on exertion. No close contacts with similar complaints. Ufiv-anj-bzcnwex NSAIDs and acetaminophen taken without relief. No other associated symptoms and no other alleviating/aggrava ting factors. ROS Const Constitutional: No other (as above) Exam Const General: cooperative, healthy appearing and no acute distress Nutritional Appearance: average body habitus Orientation: alert, awake and oriented x3 HENMT Head: normal to inspection Ears: hearing grossly normal bilaterally, external ears normal, TM's normal bilaterally, and EAC's normal left - though erythema and edema and tender to touch right. Nose: external nose normal, nares normal, septum normal and no nasal discharge Face and sinus: normal facial exam, bilateral frontal and right maxillary sinuses palpable tender (with right maxillary fullness to palpation) and face symmetric Mouth: oral mucosae normal, lip normal, tongue normal and oropharynx normal Throat: posterior oropharynx normal, tonsils normal, uvula midline and postnasal drainage (Purulent) Eyes General: appearance normal, both eyes and all related structures Neck Neck: normal visual inspection, full ROM, no meningeal signs, supple and lymphadenopathy (Bilateral anterior cervical lymph node swelling/tender to palpation) Neck mass: No Thyroid: thyroid normal Chest Chest palpation inspection: normal inspection of the chest Resp Effort Inspection: normal respiratory effort and able to speak in complete sentences Auscultation: Bilateral: Clear to Auscultation Cardio Palpation: normal PMI Rate: regular rate Rhythm: regular rhythm Heart Sounds: S1 normal, S2 normal, no gallops, no murmurs and no rubs Pulses: radial pulses present GI Inspection: normal to inspection Skin General: no rashes or lesions noted Neuro General: patient alert, patient awake and patient oriented x3 Cognition: normal cognition Speech: speech normal Psych Appearance: grossly normal Mental Status: mental status grossly normal Mood: congruent mood Affect: normal affect Speech and Movement: speech and movement (more content not included)... Normal [facility]domen [facility] Cheston Acute Abdomen Inc Chest [facility] [address] [place] [address] Acute Abdomen Inc Chest MR#: [id number] Acct: [id number] Name: OZIEL THOMAS Rep #: [id number] : 1985 F 39 From: [facility] Mendes PCP: Dr. Roshni Jorgensen MD Status: REG CLI Study: Acute Abdomen Inc Chest Date of Exam: 10/16/24 Exam# [id number] Ordering Dr: Roshni Jorgensen MD PROCEDURE: ACUTE ABDOMEN INC CHEST 10/16/2024 REASON FOR EXAM: RIGHT FLANK PAIN TECHNIQUE: ACUTE ABDOMEN INC CHEST, five view. COMPARISON: Central Office Repairer Supervisor from the CT examination of 10/17/2020 RAD/Acute Abdomen Inc Chest IMPRESSION: The chest demonstrates clear lungs throughout. No pleural effusion or pneumothorax is seen. The cardiomediastinal silhouette is within the normal range. A moderately large stool burden is seen. The bowel-gas pattern is otherwise unremarkable. Although limited by overlying stool, no urinary tract calculus is identified Mild degenerative changes of the spine are seen Reading Location: [place] [address] CC: Dr. Roshni Jorgensen MD Client Server Programmer: Signed Normal [facility] Urine Cultureon 10-10-2024 U[facility] Escherichia coli [place] Count >100,000 Escherichia coli: REACTION Ampicillin Islt TAJ 4 Ampicillin+Sulbac Islt TAJ <=2 S Cefepime Islt ATJ <=0.12 S cefTRIAXone Islt TAJ <=0.25 S Ciprofloxacin Islt TAJ <=0.06 S B-Lactamase Extended Susc Islt NEG Gentamicin Islt TAJ <=1 S levoFLOXacin Islt TAJ <=0.12 S Meropenem Islt TAJ <=0.25 S Nitrofurantoin Islt TAJ <=16 S Pip+Tazo Islt TAJ <=4 S TMP SMX Islt TAJ <=20 S Normal [facility] Comment on above: Performed By: #### M 100.2208 #### [facility] [address] [place], [place], [address] Laboratory - Chemistry and C hemistry - challengeOrdered By: Dat Guo on 10-08-2024 Bilirubin Ql (U) Negative [facility] Glucose Ql (U) Negative [facility] Ketones Ql (U) Negative [facility] pH (U) 6.5 [pH] [facility] Specific gravity (U) [Rel density] 1.005 [facility] Urobilinogen (U) [Mass/Vol] 0.6191976 mg/dL [facility] Laboratory - Hematology and Cell countsOrdered By: Dat Guo on 10-08-2024 Hemoglobin Ql (U) Moderate [facility] Laboratory - Specimen inform ationOrdered By: Dat Guo on 10-08-2024 Clarity (U) Cloudy [facility] Color (U) STRAW [facility] Laboratory - UrinalysisOrder ed By: Dat Guo on 10-08-2024 Nitrite Ql (U) Negative [facility] Protein Ql (U) Trace [facility] No Panel InformationOrdered By: Dat Guo on 10-08-2024 Urine Leukocytes Positive [facility] Urine Non-Hemolyzed Blood Large [facility] Urgent Care Visit Reporton 0 10-08-2024 Urgent Care Visit Report [facility] [address] , [address] [place], [place] [address] OFFICE VISIT Date of Service: 10/08/24 MR#: [id number] Acct: [id number] Name: OZIEL THOMAS Rep #: [id number] : 1985 Provider: JOCY Carter Age/Sex: 39/F Location: [facility] Status: Signed Intake Vital Signs 01/29/24 10:00 [...] color/ character of stool; cloudy urine. No unxt-wub-agapaor products taken to assist. No other associated [...] MA on 10/08/24 12:50 Off Ur Spec [place] 1.005 Last Edit by Prachi Zamora MA [...] Zamora MA (more content not included)... Normal [facility] Urine cultureOrdered By: Familia Guo on 10-08-2024 Bacteria identified Cx Nom (U) Escherichia coli Abnormal [facility] CNPNon 05-21-2024 LAILAN Telephone (OBGYWM) ---- OZIEL THOMAS ([id number]) 1985 F Date Time Provider Department 05/21/24 [...] been completed. Please have your patient call [phone] or ext. [phone] to schedule a breast imaging exam appointment for additional evaluation. Please ensure that you have placed either an electronic or hard copy order for the additional exam recommended from the screening mammogram report. We understand that this is an inconvenience to you and greatly appreciate your cooperation. If your patient has already scheduled an appointment, please disregard this letter. Sincerely, [facility] Deisy Washington RN 05/22/2024 10:10 AM Signed Left message for patient to call office or check [employer] HQt message. FAHAD Escobar Trisha, RN 05/23/2024 2:27 PM Signed 3rd attempt. Patient has not read Mytrushart message. Left message for patient to call office or check mychart message. Letter sent. Deisy Washington RN Allergies As of Date: 05/21/2024 (No Known Allergies) Date Reviewed: 03/07/2024 Reviewed by: Dolores Hodge APRN.FIRE PROTECTION DESIGNER - Fully Assessed Reason for Visit: Radiology Mammogram [1485] Prescriptions as of 05/23/2024 - norgestimate 0.25 mg-ethinyl estradiol 35 mcg (SPRINTEC) 0.25-35 mg-mcg per tablet Take 1 tablet by mouth once daily. - multivitamin (MULTIPLE VITAMIN ORAL) MULTIPLE VITAMIN DAILY MULTIPLE VITAMINS TABS MULTIPLE VITAMIN [id number] Elzbieta K [place] [employer] FURNITURE POLISHER [facility] ([address]) - L.ACID/L.CASEI/B.BI F/B.AFIA/FOS (PROBIOTIC BLEND ORAL) Take by mouth. Problem List As Of Date 05/21/2024 Noted Resolved SUPERVIS NORMAL 1ST PREG [Z34.00] 04/11/2007 12/29/2007 EXCESS FET GRTH-ANTEPART [O36.60X0] 12/05/2007 12/29/2007 Hemorrhoids, Internal [K64.8] 09/25/2009 Nipple discharge [N64.52] 01/30/2014 07/13/2016 Family history of malignant neoplasm of breast *03/07/2024 Letter Text Encounter Status:Closed by DOLORES HODGE on 05/23/24 [facility] 03-12-2024 KENJI Telephone (OBGYWM) ---- OZIEL THOMAS ([id number]) 1985 F Date Time Provider Department 03/12/24 JENAE ROSA OBJEANCARLOSWMarybel During your visit today, we recorded the following information about you: Allergies As of Date: 03/12/2024 (No Known Allergies) Date Reviewed: 03/07/2024 Reviewed by: Dolores Hodge APRN.FIRE PROTECTION DESIGNER - Fully Assessed Reason for Visit: Orders [681] Primary Visit Diagnosis:Abnormal mammogram [R92.8] Order(s):US BREAST LTD LEFT [9192056] Order #: [id number] FUTURE ERNA DIAGNOSTIC LEFT [[id number]] Order #: [id number] FUTURE Prescriptions as of 03/12/2024 - norgestimate 0.25 mg-ethinyl estradiol 35 mcg (SPRINTEC) 0.25-35 mg-mcg per tablet Take 1 tablet by mouth once daily. - multivitamin (MULTIPLE VITAMIN ORAL) MULTIPLE VITAMIN DAILY MULTIPLE VITAMINS TABS MULTIPLE VITAMIN [id number] Elzbieta Ko WOODEN FURNITURE POLISHER [facility] ([address]) - L.ACID/L.CASEI/B.BI F/B.AFIA/FOS (PROBIOTIC BLEND ORAL) Take by mouth. Problem List As Of Date 03/12/2024 Noted Resolved SUPERVIS NORMAL 1ST PREG [Z34.00] 04/11/2007 12/29/2007 EXCESS FET GRTH-ANTEPART [O36.60X0] 12/05/2007 12/29/2007 Hemorrhoids, Internal [K64.8] 09/25/2009 Nipple discharge [N64.52] 01/30/2014 07/13/2016 Family history of malignant neoplasm of breast *03/07/2024 Encounter Status:Closed by JENAE ROSA on 03/12/24 Normal [facility] CNOVon 03-07-2024 CNOV Office Visit (OBGYWM) ---- OZIEL THOMAS ([id number]) 1985 F Date Time Provider Department 03/07/24 8:15 AM DOLORES HODGE During your visit today, we recorded the following information about you: Blood pressure Weight Height Last Period 110/64 78.5 kg 1.606 m 02/08/24 Dolores Hodge APRN.CNP 03/07/2024 8:31 AM Signed Hostage Negotiator offered: Patient declines. Oziel is a 38 [...] L2 SAB0 IAB0 Ectopic0 Multiple0 Live Births2 Gore Seamer History LMP: 02/08/2024 (Exact Date), Having periods Age at Menarche: Age at First : Age at Menopause: Gore Seamer History Comments: Sexual Activity: Yes; Male Contraception: [...] discussed with the Patient or Patient's Authorized Lactation Specialist. As applicable, any other physician, advance practice provider, medical student, or other health professional student that will be observing or involved in the sensitive examination for educational or training purposes was discussed with the Patient or Authorized Lactation Specialist. The Patient or Authorized Lactation Specialist has agreed to proceed with the sensitive [...] bilateral labia majora, normal Bartholin's glands, urethra, [place]'s glands, + 3 mm raised mole to [...] - ICD9: (more content not included)... Normal [facility] SCREENING W TOMOon 03-07 ERNA SCREENING W ARNULFO * * *Final Report* * * DATE OF EXAM: Mar 07 2024 10:32AM WRW [id number] - ERNA SCREENING W ARNULFO / PROCEDURE REASON: Encounter for screening mammogram for malignant neoplasm of breast * * * * Physician Interpretation * * * * RESULT: [place] [address] [place] [id number] #[id number] - [facility] SCREENING W ARNULFO HISTORY: Patient is 38 [...] Erica Adrian M.D. Electronically signed on: 03/10/2024 Client Server Programmer: RENY Transcribe Date/Time: Mar 07 2024 9:48A Dictated by: ERICA ADRIAN MD This examination was interpreted and the report reviewed and electronically signed by: ERICA ADRIAN MD on Mar 10 2024 7:24AM EST [id number] Normal [facility] Urine Cultureon 02-01-2024 URC Staphylococcus saprophyticus [place] Count 25,000-50,000 Staphylococcus saprophyticus: REACTION cefOXitin Susc Islt Clindamycin.induced Susc Islt NEG Gentamicin Islt TAJ <=0.5 S Nitrofurantoin Islt TAJ <=16 S Oxacillin Susc Islt S Tetracycline Islt TAJ <=1 S Vancomycin Islt TAJ <=0.5 S Normal [facility] Comment on above: Performed By: #### M [id number] #### [facility] [address] [place], [address] Urgent Care Visit Reporton 1 03-30-2023 Urgent Care Visit Report [facility] [address], [address] [place], [place] [address] OFFICE VISIT Date of Service: 01/29/24 MR#: [id number] Acct: [id number] Name: OZIEL THOMAS Rep #: [id number] 3 : 1985 Provider: CARLYN garzon Age/Sex: 38/F Location[facility] Status: Signed Intake Vital Signs 12/27/22 07:40 [...] Chief Complaint: dysuria and lt ear concerns [employer] Pow[employer] Technician Required: No Accompanied by: Self Is patient [...] all relate (more content not included)... Normal [facility] Basophil percentageOrdered B y: Dat Guo on 12-27-2022 Basophil percentage 25-50 SEEN /hpf 0-5 [facility] Bilirubin Test strip Ql (U)O rdered By: Dat Guo on 12-27-2022 Bilirubin Ql (U) Negative Negative [facility] Culture, urineOrdered By: St barbie Guo on 12-27-2022 Bacteria identified Cx Nom (U) Positive [facility] Ketones Test strip Ql (U)Ord ered By: Dat Guo on 12-27-2022 Ketones Ql (U) 5 mg/dl Negative [facility] Laboratory - Chemistry and C hemistry - challengeon 12-27-2022 Bilirubin Ql (U) Negative [facility] Glucose Ql (U) Negative [facility] Ketones Ql (U) Trace (5) [facility] Specific gravity (U) [Rel density] 1.030 [facility] Urobilinogen (U) [Mass/Vol] Negative [facility] Laboratory - Hematology and Cell countson 12-27-2022 Hemoglobin Ql (U) Large [facility] Laboratory - Specimen inform ationon 12-27-2022 Clarity (U) Clear [facility] Color (U) Yellow [facility] Laboratory - Urinalysison Nitrite Ql (U) Negative [facility] Protein Ql (U) Negative [facility] Mucus LM Ql (Urine sed)Order ed By: Dat Guo on 12-27-2022 Mucus Ql (Urine sed) 1+ /hpf [facility] Nitrite Test strip Ql (U)Ord ered By: Dat Guo on 12-27-2022 Nitrite Ql (U) Negative Negative [facility] No Panel Informationon 12-27 Urine Leukocytes Positive [facility] Urine Non-Hemolyzed Blood [facility] Protein Test strip Ql (U)Ord ered By: Dat Guo on 12-27-2022 Protein Ql (U) 30 mg/dl Negative [facility] Squamous epithelial cells de tection in urine sediment by light microscopyOrdered By: Dat Guo on 12-27-2022 Epithelial cells.squamous LM Ql (Urine sed) 0-5 SEEN /hpf 5-10 [facility] Urine blood detectionOrdered By: Dat Guo on 12-27-2022 RBC Ql (U) 150 /ul Negative [facility] RBC Ql (U) 5-10 SEEN /hpf 0-5 [facility] Urine clarityOrdered By: Familia Guo on 12-27-2022 Clarity (U) Clear Clear [facility] Urine color determinationOrd ered By: Dat Guo on 12-27-2022 Color (U) Yellow Yellow [facility] Urine glucose detectionOrder ed By: Dat Guo on 12-27-2022 Glucose Ql (U) Normal mg/dl Normal [facility] Urine leukocyte esterase det ection by dipstickOrdered By: Dat Guo on 12-27-2022 Leukocyte esterase Test strip Ql (U) 100 /ul Negative [facility] Urine pHOrdered By: Dat lundberg on 12-27-2022 pH (U) 5.0 [pH] 5.0 - 8.0 [facility] Urine sediment bacteria coun t by microscopy (number/high power field)Ordered By: Dat Guo on 12-27-2022 Bacteria LM.HPF (Urine sed) [#/Area] 1 /[HPF] None Seen [facility] Urine specific gravity measu rementOrdered By: Dat Guo on 12-27-2022 Specific gravity (U) [Rel density] 1.020 1.002-1.030 [facility] Urobilinogen Auto test strip Ql (U)Ordered By: Dat Guo on 12-27-2022 Urobilinogen Ql (U) Normal mg/dl Normal [facility] Amorphous sediment detection in urine sediment by light microscopyOrdered By: Lawrence Yeager on 09-22-2022 Amorphous sediment LM Ql (Urine sed) 1+ URATE [facility] Basophil percentageOrdered B y: Lawrence Yeager on 09-22-2022 Basophil percentage 25-50 SEEN /hpf 0-5 [facility] Bilirubin Test strip Ql (U)O rdered By: Lawrence Yeager on 09-22-2022 Bilirubin Ql (U) Negative Negative [facility] Culture, urineOrdered By: Florentino Yeager on 09-22-2022 Bacteria identified Cx Nom (U) Presumptive E. coli [facility] Ketones Test strip Ql (U)Ord ered By: Lawrence Yeager on 09-22-2022 Ketones Ql (U) Negative Negative [facility] Mucus LM Ql (Urine sed)Order ed By: Lawrence Yeager on 09-22-2022 Mucus Ql (Urine sed) 0 SEEN /hpf [facility] Nitrite Test strip Ql (U)Ord ered By: Lawrence Yeager on 09-22-2022 Nitrite Ql (U) Negative Negative [facility] Protein Test strip Ql (U)Ord ered By: Lawrence Yeager on 09-22-2022 Protein Ql (U) 30 mg/dl Negative [facility] Squamous epithelial cells de tection in urine sediment by light microscopyOrdered By: Lawrence Yeager on 09-22-2022 Epithelial cells.squamous LM Ql (Urine sed) 0-5 SEEN /hpf 5-10 [facility] Urine blood detectionOrdered By: Lawrence Yeager on 09-22-2022 RBC Ql (U) 250 /ul Negative [facility] RBC Ql (U) 10-25 SEEN /hpf 0-5 [facility] Urine clarityOrdered By: Ajay Yeager on 09-22-2022 Clarity (U) Sl. Cloudy Clear [facility] Urine color determinationOrd ered By: Lawrence Yeager on 09-22-2022 Color (U) Yellow Yellow [facility] Urine glucose detectionOrder ed By: Lawrence Yeager on 09-22-2022 Glucose Ql (U) Normal mg/dl Normal [facility] Urine leukocyte esterase det ection by dipstickOrdered By: Lawrence Yeager on 09-22-2022 Leukocyte esterase Test strip Ql (U) 500 /ul Negative [facility] Urine pHOrdered By: Lawrence pak on 09-22-2022 pH (U) 6.5 [pH] 5.0 - 8.0 [facility] Urine sediment bacteria coun t by microscopy (number/high power field)Ordered By: Lawrence Yeager on 09-22-2022 Bacteria LM.HPF (Urine sed) [#/Area] 0 /[HPF] None Seen [facility] Urine specific gravity measu rementOrdered By: Lawrence Yeager on 09-22-2022 Specific gravity (U) [Rel density] 1.010 1.002-1.030 [facility] Urobilinogen Auto test strip Ql (U)Ordered By: Lawrence Yeager on 09-22-2022 Urobilinogen Ql (U) Normal mg/dl Normal [facility] Laboratory - Chemistry and C hemistry - challengeon 09-21-2022 Bilirubin Ql (U) Negative [facility] Glucose Ql (U) Negative [facility] HCG ( test) Ql (U) Negative [facility] Ketones Ql (U) Negative [facility] pH (U) 6.5 [pH] [facility] Specific gravity (U) [Rel density] 1.005 [facility] Urobilinogen (U) [Mass/Vol] 0.3657757 mg/dL [facility] Laboratory - Hematology and Cell countson 09-21-2022 Hemoglobin Ql (U) Hemolyzed [facility] - Specimen inform ationon 09-21-2022 Clarity (U) Clear [facility] Color (U) YELLOW [facility] Laboratory - Urinalysison Nitrite Ql (U) Negative [facility] Protein Ql (U) Trace [facility] No Panel Informationon 09-21 Urine Leukocytes Positive [facility] Urine Non-Hemolyzed Blood Large [facility] Clinical Lists 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 Mata Morrison MD Work Phone: [facility] 11-07-2024 12:59-0400 Diastolic blood pressure 80 mm[Hg] Dr. Mata Morrison MD Work Phone: [facility] 11-07-2024 12:59-0400 Heart rate 73 /min Dr. Mata Morrison MD Work Phone: [facility] 11-07-2024 12:59-0400 Respiratory rate 16 /min Dr. Mata Morrison MD Work Phone: [facility] 11-07-2024 12:59-0400 SaO2% (BldA) [Mass fraction] 99 % Dr. Mata Morrison MD Work Phone: [facility] 11-07-2024 12:59-0400 Systolic blood pressure 122 mm[Hg] Dr. Mata Morrison MD Work Phone: [facility] 10-08-2024 12:43-0400 Body temperature 98.4 [degF] Dr. Mata Morrison MD Work Phone: [facility] 10-08-2024 12:43-0400 Body weight 82.[address] Mata Morrison MD Work Phone: [facility] 10-08-2024 12:43-0400 Diastolic blood pressure 60 mm[Hg] Dr. Mata Morrison MD Work Phone: [facility] 10-08-2024 12:43-0400 Heart rate 68 /min Dr. Mata Morrison MD Work Phone: [facility] 10-08-2024 12:43-0400 Respiratory rate 14 /min Dr. Mata Morrison MD Work Phone: [facility] 10-08-2024 12:43-0400 SaO2% (BldA) [Mass fraction] 99 % Dr. Mata Morrison MD Work Phone: [facility] 10-08-2024 12:43-0400 Systolic blood pressure 120 mm[Hg] Dr. Mata Morrison MD Work Phone: [facility] 03-07-2024 08:03-0500 Body height 160.6 cm Dolores Haury FOOD SCIENCE TECHNICIAN.FIRE PROTECTION DESIGNER Work Phone: [facility] 03-07-2024 08:03-0500 Body mass index (BMI) [Ratio] 30.44 kg/m2 Dolores Haury FOOD SCIENCE TECHNICIAN.FIRE PROTECTION DESIGNER Work Phone: [facility] 03-07-2024 08:03-0500 Body weight 78.47 kg Dolores Haury FOOD SCIENCE TECHNICIAN.FIRE PROTECTION DESIGNER Work Phone: [facility] 03-07-2024 08:03-0500 Diastolic blood pressure 64 mm[Hg] Dolores Haury FOOD SCIENCE TECHNICIAN.FIRE PROTECTION DESIGNER Work Phone: [facility] 03-07-2024 08:03-0500 Systolic blood pressure 110 mm[Hg] Dolores Haury FOOD SCIENCE TECHNICIAN.FIRE PROTECTION DESIGNER Work Phone: [facility] 02-11-2023 09:40-0500 Body height 160 cm Jenae Majestic FOOD SCIENCE TECHNICIAN.FIRE PROTECTION DESIGNER Work Phone: [facility] 02-11-2023 09:40-0500 Body weight 74.66 kg Jenae Moe FOOD SCIENCE TECHNICIAN.FIRE PROTECTION DESIGNER Work Phone: [facility] 02-11-2023 09:40-0500 Diastolic blood pressure 60 mm[Hg] Jenae Moe FOOD SCIENCE TECHNICIAN.FIRE PROTECTION DESIGNER Work Phone: [facility] 02-11-2023 09:40-0500 Systolic blood pressure 90 mm[Hg] Jenae Rosa APRN.CNP Work Phone: [facility] 12-27-2022 07:40-0400 Body height 160.[address] Mata Morrison Work Phone: [facility] 12-27-2022 07:40-0400 Body mass index (BMI) [Ratio] 30.1 kg/m2 Dr. Mata Morrison Work Phone: [facility] 12-27-2022 07:40-0400 Body temperature 98.2 [degF] Dr. Mata Morrison Work Phone: [facility] 12-27-2022 07:40-0400 Body weight 77.[address] Mata Morrison Work Phone: [facility] 12-27-2022 07:40-0400 Diastolic blood pressure 84 mm[Hg] Dr. Mata Morrison Work Phone: [facility] 12-27-2022 07:40-0400 Heart rate 63 /min Dr. Mata Morrison Work Phone: [facility] 12-27-2022 07:40-0400 Respiratory rate 17 /min Dr. Mata Morrison Work Phone: [facility] 12-27-2022 07:40-0400 SaO2% (BldA) [Mass fraction] 98 % Dr. Mata Morrison Work Phone: [facility] 12-27-2022 07:40-0400 Systolic blood pressure 120 mm[Hg] Dr. Mata Morrison Work Phone: [facility] 09-21-2022 12:28-0400 Body height 160.[address] Mata Morrison Work Phone: [facility] 09-21-2022 12:28-0400 Body mass index (BMI) [Ratio] 35.4 kg/m2 Dr. Mata Morrison Work Phone: [facility] 09-21-2022 12:28-0400 Body temperature 97.4 [degF] Dr. Mata Morrison Work Phone: [facility] 09-21-2022 12:28-0400 Body weight 90.[address] Mata Morrison Work Phone: [facility] 09-21-2022 12:28-0400 Diastolic blood pressure 80 mm[Hg] Dr. Mata Morrison Work Phone: [facility] 09-21-2022 12:28-0400 Heart rate 86 /min Dr. Mata Morrison Work Phone: [facility] 09-21-2022 12:28-0400 Respiratory rate 16 /min Dr. Mata Morrison Work Phone: [facility] 09-21-2022 12:28-0400 SaO2% (BldA) [Mass fraction] 99 % Dr. Mata Morrison Work Phone: [facility] 09-21-2022 12:28-0400 Systolic blood pressure 112 mm[Hg] Dr. Mata Morrison Work Phone: [facility] Encounters Encounter Date Encounter Type Care Provider Facility Start: 11-07-2024 End: 11-07-2024 Patient encounter procedure Dat Guo [place] -[facility] Work Phone: Start: 11-07-2024 End: 11-07-[address] Mata Morrison MD Work Phone: [facility] Start: 10-16-2024 End: 10-16-[address] Mata Morrison MD Work Phone: -[facility] [place] Start: 10-16-2024 End: 10-16-[address] Roshni Jorgensen MD -[facility] [place] Work Phone: Start: 10-16-2024 End: 10-16-2024 ambulatory Roshni Jorgensen Facility:[facility] Start: 10-08-2024 End: 10-08-[address] Mata Morrison MD Work Phone: -Laboratory Specimen Start: 10-08-2024 End: 10-08-2024 Patient encounter procedure Dat SANDRA -Laboratory Specimen Work Phone: Start: 10-08-2024 End: 10-08-2024 Patient encounter procedure Dat Guo [place] [facility] Work Phone: Start: 10-08-2024 End: 10-08-[address] Mata Morrison MD Work Phone: [facility] Start: 10-08-2024 End: 10-08-2024 ambulatory Mata Morrison Facility:[facility] Start: 05-21-2024 End: 05-23-2024 Telephone encounter Dolores Hodge APRN.CNP Work Phone: OB/Gynecology Comment on above: Radiology Mammogram Start: 03-15-2024 End: 03-15-2024 ambulatory Dolores Hodge APRN.FIRE PROTECTION DESIGNER Work Phone: OB/Gynecology Comment on above: Breast Imaging Start: 03-15-2024 End: 03-15-2024 E-mail encounter from caregiver Dolores Hodge APRN.CNP Work Phone: OB/Gynecology Start: 03-12-2024 End: 03-12-2024 Telephone encounter Jenae Rosa APRN.FIRE PROTECTION DESIGNER Work Phone: OB/Gynecology Comment on above: Orders Start: 03-07-2024 End: 03-07-2024 ambulatory DOLORES HODGE Facility:[facility] Start: 03-07-2024 End: 03-07-2024 Subsequent hospital visit by physician Screen Mammo [facility] M[facility]ogram Comment on above: Encounter for screen ing mammogram for malignant neoplasm of breast [Z12.31] Start: 03-07-2024 End: 03-07-2024 Patient encounter procedure Dolores Hodge APRN.FIRE PROTECTION DESIGNER Work Phone: OB/Gynecology Comment on above: Encounter for gyneco logical examination (general) (routine) without abnormal findings (Primary Dx); General counseling for prescription of oral contraceptives; Screening for cervical cancer; Screening for HPV (human papillomavirus); Encounter for screening mammogram for malignant neoplasm of breast; Family history of malignant neoplasm of breast Start: 03-07-2024 End: 03-07-2024 Patient encounter status Dolores Hodge APRN.CNP Work Phone: [facility] Start: 03-07-2024 End: 03-07-2024 ambulatory DOLORES HODGE Facility:[facility] Start: 03-07-2024 Encounter for gynecological examination (general) (routine) without abnormal findings DOLORES HODGE [facility] Start: 01-29-2024 End: 01-30-2024 ambulatory Mata Mtz NP Facility:[facility] Start: 02-11-2023 End: 02-11-2023 Patient encounter procedure Jenae Rosa APRN.CNP Work Phone: OB/Gynecology Comment on above: Encounter for gyneco logical examination (general) (routine) without abnormal findings (Primary Dx); General counseling for prescription of oral contraceptives; Screening for cervical cancer; Encounter for screening for human papillomavirus (HPV) Start: 02-11-2023 End: 02-11-2023 Patient encounter status Jenae Rosa APRN.CNP Work Phone: [facility] Work Phone: Start: 12-27-2022 End: 12-27-[address] Mata Morrison Work Phone: [facility] Work Phone: Start: 12-27-2022 End: 12-27-[address] Mata Morrison Work Phone: [facility]-Laboratory, Specimen Work Phone: Start: 12-27-2022 End: 12-27-[address] Mata Morrison Work Phone: [facility] Work Phone: Start: 09-22-2022 End: 09-22-[address] Mata Morrison Work Phone: [facility] Work Phone: Start: 09-22-2022 End: 09-22-[address] Mata Morrison Work Phone: [facility]-Laboratory, Specimen Work Phone: Start: 09-21-2022 End: 09-21-[address] Mata Morrison Work Phone: [facility] Work Phone: Start: 01-01-2022 Refill Sona alicea MD Work Phone: OB/Gynecology Comment on above: Refill Request Procedures Date Procedure Procedure Detail Performing Clinician Start: 10-16-2024 Plain X-ray abdomen Dr. Mata Morrison MD Work Phone: Start: 10-08-[address] Mata Morrison [...] DTaP,Tdap,Td Vaccine (2 - Td or Tdap) [facility] Start: 02-12-2024 Screening for malign ant neoplasm of cervix Cervical Cancer Screening [facility] Start: 11-20-2023 Covid-19 Vaccine () Covid-19 Vaccine () [facility] Start: 11-20-2023 Influenza vaccination Influenza Vacc ine (#1) [facility] Start: 12-02-2022 HPV TESTING HPV TESTING [facility] Start: 12-02-2022 PAP TESTING PAP TESTING [facility] Start: 11-19-2022 Covid-19 Vaccine () Covid-19 Vaccine () [facility] Start: 11-19-2022 Influenza vaccination Influenza Vacc ine (#1) [facility] Start: 03-21-2022 [facility] Start: 11-19-2021 Influenza vaccination INFLUENZA (#1) [facility] Start: 03-21-2021 DEPRESSION [facility]ESSMENT [facility] Start: 06-25-2020 COVID-19 VACCINE (3 - Booster for Moderna series) COVID-19 VACCINE (3 - Booster for Moderna series) [facility] Start: 08-11-2016 End: 08-11-2016 Appointment Appointment [facility] Work Phone: Start: 08-11-2016 End: 08-11-2016 Appointment Appointment [facility] Work Phone: Start: 08-05-2016 End: 08-05-2016 Appointment Appointment [facility] Work Phone: Start: 2005 Hepatitis B Vaccine (1 of 3 - 19+ 3-dose series) Hepatitis B Vaccine (1 of 3 - 19+ 3-dose series) [facility] Start: 2005 Urine microalbumin profile DTAP,TDAP,TD (1 - Tdap) [facility] Start: 2004 Anxiety Screening Anxiety Screening [facility] Start: 2004 Depression Screening Depression Scre [facility] Start: 2004 HEPATITIS C SCREENING HEPATITIS C [facility] Start: 2004 Hepatitis C screening Hepatitis C [facility] Start: 2004 HIV SCREENING HIV SCREENING [facility] Start: 2004 HIV screening HIV Screening [facility] Start: 1986 HEPATITIS B (1 of 3 - 3-dose series) HEPATITIS B (1 of 3 - 3-dose series) [facility] Start: 1986 Hepatitis B Vaccine (1 of 3 - 3-dose series) Hepatitis B Vaccine (1 of 3 - 3-dose series) [facility] End: 04-06-2025 DBT Breast - bilateral screening ENRA SCREENING [facility] Radiology Routine Encounter for screening mammogram for malignant neoplasm of breast 1 Occurrences starting 03/07/2024 until 04/06/2025 [facility] Work Phone: Comment on above: 1 Occurrences starti ng 03/07/2024 until 04/06/2025 DBT Breast - bilater al screening ERNA SCREENING [facility] Radiology Routine Encounter for screening mammogram for malignant neoplasm of breast 03/07/2024 10:32 AM [facility] End: 04-11-2025 MG Breast - left Diagnostic for implant ERNA DIAGNOSTIC LEFT Radiology Routine Abnormal mammogram 1 Occurrences starting 03/12/2024 until 04/11/2025 [facility] Comment on above: 1 Occurrences starti ng 03/12/2024 until 04/11/2025 PAP TEST PAP TEST Lab [facility] Encounter for gynecological examination (general) (routine) without abnormal findings Screening for cervical cancer Encounter for screening for human papillomavirus (HPV) 02/11/2023 10:03 AM [facility] Work Phone: End: 04-11-2025 US Breast - left limited US BREAST LTD LEFT Radiology Routine Abnormal mammogram 1 Occurrences starting 03/12/2024 until 04/11/2025 [facility] Work Phone: Comment on above: 1 Occurrences starti ng 03/12/2024 until 04/11/2025 [facility] Immunizations Immunization Date Immunization Notes Care Provider Omayra arriola 10-05-2021 tetanus toxoid, redu yolanda diphtheria toxoid, and acellular pertussis vaccine, adsorbed Jenae Majestic FOOD SCIENCE TECHNICIAN.FIRE PROTECTION DESIGNER Work Phone: [facility] Work Phone: 01-26-2006 influenza virus vaccine, unspecified formulation Sona Zimmer MD Work Phone: [facility] Work Phone: Payers Date Payer Category Payer Self-pay [id number] 2009 [facility] BLUE ACCE SS PPO [id number] 2009 Unknown YULIANA MULLER SS PPO [id number] 2009-Present [phone] [address] [place] [address] PPO [id number] 2009 Unknown [id number] Unknown [facility] [id number] Unknown [id number] Unknown [id number] Unknown [id number] Unknown [id number] Unknown [id number] Unknown [id number] Social History Date Type Detail Facility Start: 08-25-2010 End: 04-15-2023 Tobacco smoking status NHIS Never smoked tobacco [facility] Work Phone: Start: 08-25-2010 End: 02-11-2023 Tobacco use and exposure Smokeless tobacco non-user [facility] Work Phone: Start: 01-31-2021 End: 03-07-2024 Alcohol intake Current drinker of alcohol (finding) [facility] Start: 01-31-2021 End: 02-11-[address] [facility] Start: 07-13-2016 Alcohol Comment occ [facility] Start: 1985 Sex Assigned At Not on file [facility] Start: 09-21-2022 End: 12-27-2022 Tobacco smoking status NHIS Unknown if ever smoked [facility] Start: 1985 Sex Assigned At Female [facility] Start: 02-11-2023 End: 03-07-[address] [facility] National Score (1-100), lower number is lower risk [address] [facility] NEGATED: Highlighted rowStart: NINF History of tobacco use Passive smoker [facility] Work Phone: Functional Status Date Assessment Result Facility 02-21-2014 Are you deaf, or do you have serious difficulty hearing No 02/21/2014 9:51 AM Mima Flynn MA No [facility] 02-21-2014 Are you blind, or do you have serious difficulty seeing, even when wearing glasses No 02/21/2014 9:51 AM Mima Flynn MA No [facility] 02-21-2014 Do you have serious difficulty walking or climbing stairs No 02/21/2014 9:51 AM Mima Flynn MA [facility] 02-21-2014 Do you have difficul ty dressing or bathing No 02/21/2014 9:51 AM Mima Flynn MA No [facility] 02-21-2014 Because of a physica l, mental, or emotional condition, do you have difficulty doing errands alone such as visiting a physician's office or shopping No 02/21/2014 9:51 AM Mima Flynn MA [facility] Mental Status Date Assessment Result Facility 02-21-2014 Because of a physica l, mental, or emotional condition, do you have serious difficulty concentrating, remembering, or making decisions No 02/21/2014 9:51 AM Mima Flynn MA No [facility] Clinical Notes 01-30-2014 to 10-17-2024 Note Date & Type Note Facility 10-17-2024 Radiology Diagnostic study note [facility] Imaging Services [address] [place], [place] [address] Acute Abdomen Inc Chest MR#: [id number] Acct: [id number] Name: OZIEL THOMAS Rep #: [id number] : 1985 F 39 From: [facility] MD PCP: Dr. Roshni Jorgensen MD Status: REG CL I Study:Acute Abdomen Inc Chest Date of Exam: 10/16/24 Exam# [id number] Ordering Dr: Claire Jorgensen MD PROCEDURE: ACUTE ABDOMEN INC CHEST 10/16/2024 REASON FOR EXAM: RIGHT FLANK PAIN TECHNIQUE: ACUTE ABDOMEN INC CHEST, five view. COMPARISON: Central Office Repairer Supervisor from the CT examination of 10/17/2020 RAD/Acute Abdomen Inc Chest IMPRESSION: The chest demonstrates clear lungs throughout. No pleural effusion or pneumothorax is seen. The cardiomediastinal silhouette is within the normal range. A moderately large stool burden is seen. The bowel-gas pattern is otherwise unremarkable. Although limited by overlying stool, no urinary tract calculus is identified Mild degenerative changes of the spine are seen Reading Location: [place] [address] CC: Dr. Roshni Jorgensen MD ~ Client Server Programmer: Signed [facility] 10-08-2024 Progress note [facility] 10-08-2024 Progress note Note Date/Time October 08, 2024 12:56pm [facility] [address], [address] [place] [address] OFFICE VISIT Date of Service: 10/08/24 MR#: [id number] Acct: [id number] Name: OZIEL THOMAS Rep #: [id number] : 1985 Provider: JOCY Carter Age/Sex: 39/F Location: [facility] Status: Signed Intake Vital Signs 01/29/24 10:00 [...] color/ character of stool; cloudy urine. No xqif-lmy-vpxgeem products taken to assist. No other associated [...] on 10/08/24 12 :50 Off Ur Spec [place] 1.005 Last Edit by Prachi Zamora MA [...] signed by Dat SANDRA> Date _ Dat SANDRA Cosigner Signature: Date (if applicable) CC: ~ [place] [employer] Work Phone: [phone] Telephone encounter Note* Telephone Encounter - Deisy Washington RN - 05/23/2024 2:22 PM EST 3rd attempt. Patient has not read [employer] message. Left message for patient to call office or checkmychart message. Letter sent. Deisy Washington RN [facility]03-05-2025 Miscellaneous Notes* Telephone Encounter - Deisy Washington RN - 05/23/2024 2:22 PM EST 3rd attempt. Patient has not read [employer] message. Left message for patient to call [...] has beencompleted. Please have your patient call [phone] or ext. [phone] to schedule a breast imaging exam appointment for additional evaluation. Please ensure that you have placed either an electronic or hard copy order for the additional exam recommended from the screening mammogram report. We understand that this is an inconvenience to you and greatly appreciate your cooperation. If your patient has already scheduled an appointment, please disregard this letter. Sincerely, [facility] Breast Imaging documented in this encounterSt. [facility]25 Telephone encounter Note * Telephone Encounter - Deisy Washington RN - 05/22/2024 10:09 AM EST Left message for patient to call office or check mychart message. Deisy Washington RN [facility]03-03-2025 Telephone encounter Note* Telephone Encounter - Deisy Washington RN - 05/21/2024 10:21 AM EST ----- Message from Doolres Hodge APRN.CNP sent at 05/21/2024 7:37 AM [...] has beencompleted. Please have your patient call [phone] or ext. [phone] to schedule a breast imaging exam appointment for additional evaluation. Please ensure that you have placed either an electronic or hard copy order for the additional exam recommended from the screening mammogram report. We understand that this is an inconvenience to you and greatly appreciate your cooperation. If your patient has already scheduled an appointment, please disregard this letter. Sincerely, [facility] Breast Imaging [facility]12-18-2024 History of Present illness Narrative* Catie Hamm, Mammo Tech - 03/07/2024 10:10 AM EST [...] PATIENT PRESENTS WITH AN IMPLANTABLE OR ATTACHED CARDIOLOGY ASSOCIATE: No RADIOLOGY DEPARTMENT: Mammography PERIPHERAL IV DATA: Not applicable SIGNED BY: Trisha Rob March 07, 2024 9:47 AM documented in this encounterSt. Rita'S Hospital12-18-2024 NoteHNO ID: [id number] Author: CATIE HAMM Mammo Tech Service: ? Author Type: Chest Painting And Sealing Supervisor Type: Progress Notes Filed: 03/07/2024 09:47 Note [...] PATIENT PRESENTS WITH AN IMPLANTABLE OR ATTACHED CARDIOLOGY ASSOCIATE: No RADIOLOGY DEPARTMENT: Mammography PERIPHERAL IV DATA: Not applicable SIGNED BY: Trisha Rob March 07, 2024 9:47 [facility]12-18-2024 Instructions* Patient Instructions* Dolores Hodge APRN.FIRE PROTECTION DESIGNER - 03/07/2024 8:14 AM EST To schedule an appointment please either: Use the [employer] Self Scheduling Ticket you may receive OR Call [phone], Option 2 to schedule. For information pertaining to genetics services at the [facility], you can visit us online [email or web address]. [...] repeated (no maximum interval). documented in this encounterSt. Rita'S Hospital12-18-2024 NoteHNO ID: [id number] Author: DOLORES HODGE APRN.LAILA Service: ? Author Type: Nurse Practitioner Type: Progress Notes Filed: 03/07/2024 08:31 Note Text: Hostage Negotiator offered: Patient declines. Oziel is a 38 [...] L2 SAB0 IAB0 Ectopic0 Multiple0 Live Births2 Gore Seamer History LMP: 02/08/2024 (Exact Date), Having periods Age at Menarche: Age at First : Age at Menopause: Gore Seamer History Comments: Sexual Activity: Yes; Male Contraception: [...] discussed with the Patient or Patient's Authorized Lactation Specialist. As applicable, any other physician, advance practice provider, medical student, or other health professional student that will be observing or involved in the sensitive examination for educational or training purposes was discussed with the Patient or Authorized Lactation Specialist. The Patient or Authorized Lactation Specialist has agreed to proceed with the sensitive [...] bilateral labia majora, normal Bartholin's glands, urethra, [place]ells[place]'s glands, + 3 mm raised mole to [...] of malignant neoplasm o (more content not included)...[facility]12-18-2024 History of Present illness Narrative* Dolores Hodge APRN.FIRE PROTECTION DESIGNER - 03/07/2024 7:59 AM EST Hostage Negotiator offered: Patient declines. Oziel is a 38 [...] L2 SAB0 IAB0 Ectopic0 Multiple0 Live Births2 Gore Seamer History LMP: 02/08/2024 (Exact Date), Having periods Age at Menarche: Age at First : Age at Menopause: Gore Seamer History Comments: Sexual Activity: Yes; Male Contraception: [...] discussed with the Patient or Patient's Authorized Lactation Specialist. As applicable, any other physician, advance practice provider, medical student, or other health professional student that will be observing or involved in the sensitive examination for educational or training purposes was discussed with the Patient or Authorized Lactation Specialist. The Patient or Authorized Lactation Specialist has agreed to proceed with the sensitive [...] bilateral labia majora, normal Bartholin's glands, urethra, [place]'s glands, + 3 mm raised mole to [...] notify and will obtain ultrasound. Dolores Hodge APRN.FIRE PROTECTION DESIGNER documented in this encounterSt. Rita'S Hospital11-24-2023 History of Present illness Narrative* Jenae Rosa APRN.CNP - 02/11/2023 9:40 AM EST Hostage Negotiator offered: Patient declines. Oziel is a 37 [...] L2 SAB0 IAB0 Ectopic0 Multiple0 Live Births2 Gore Seamer History LMP: 01/19/2023 (Exact Date), Having periods Age at Menarche: Age at First : Age at Menopause: Gore Seamer History Comments: Sexual Activity: Yes; Male Contraception: [...] external genitalia normal, normal Bartholin's glands, urethra, [place]bells[place]'s glands, no vulvar lesions, no cervical lesions, [...] year or sooner as needed Jenae Rosa APRN.LAILA documented in this encounterSt. Rita'S Hospital10-14-2022 Miscellaneous Notes* Telephone Encounter - Claire [...] pharmacy. Claire Barillas RN documented in this encounterSt. Rita'S Hospital11-12-2014 History of Past illness Narrative* Problem Noted Date Resolved Date Nipple discharge 01/30/2014 07/13/2016 Excessive growth affec ting management of mother, antepartum 12/05/2007 12/29/2007 Supervision of normal first 04/11/2007 12/29/2007 documented as of this encounter (statuses as of 01/01/2022) [facility]11-[facility] History of Past illness Narrative* Problem Noted Date Diagnosed Date Resolved Date Nipple discharge 01/30/2014 07/13/2016 Excessive growth affec ting management of mother, antepartum 12/05/2007 12/29/2007 Supervision of normal first 04/11/2007 12/29/2007 documented as of this encounter (statuses as of 02/11/2023) [facility]* Diagnosis General counseling for prescription of oral contraceptives [facility]* Diagnosis Onset Date Resolution Status Cystitis acute [facility] Work Phone: Evaluation note* Diagnosis Onset Date Resolution Status Cystitis acute UTI (urinary tract infection) acute [facility] Work Phone: Evaluation note* Diagnosis Encounter for gynecological examination (general) (routine) without abnormal findings- Primary General counseling for prescription of oral contraceptives Screening for cervical cancer Screening for malignant neoplasm of the cervix Encounter for screening for human papillomavirus (HPV) Special screening examination for human papillomavirus (HPV) documented in this encounter [facility] note* Diagnosis Encounter for gynecological examination (general) [...] neoplasm of breast documented in this encounter [facility] note* Diagnosis Encounter for screening mammogram for malignant neoplasm of breast Other screening mammogram documented in this encounter [facility] note* Diagnosis Abnormal mammogram- Primary Abnormal mammogram, unspecified documented in this encounter [facility] noteNo assessment information availableUsc [facility] Work Phone: Reason for referral (narrative)* Diagnostic Procedure Only (Routine) - New Request Specialty Diagnoses / Procedures Referred By Sindy naidu Referred To Contact [facility] Diagnoses Abnormal mammogram Procedures ERNA DIAGNOSTIC LEFT DIAGNOSTIC MAMMOGRAPHY COMPUTER-AIDED DETCJ UNI Jenae Rosa APRN.CNP [address] [place] [address] [facility] [address] [place] [phone] Referral ID Status Reason Start Date Expiration Date Visits Requested Visits Authorized [id number] New Request Auto-Generat ed Referral 4 04/11/2025 1 1 * Diagnostic Procedure Only (Routine) - New Request Specialty Diagnoses / Procedures Referred By Sindy naidu Referred To Contact [facility] Diagnoses Abnormal mammogram Procedures US BREAST LTD LEFT US BREAST UNI REAL TIME WITH IMAGE LIMITED Jenae Rosa APRN.CNP [address] [place] [address] [facility] [address] [place] [address] Referral ID Status Reason Start Date Expiration Date Visits Requested Visits Authorized [id number] New Request Auto-Generat ed Referral 04/11/[address] [facility] HospitalReason for referral (narrative)No reason for referral information availableAr[place] [employer] Work Phone: Reason for visit Narrative* Diagnostic Procedure Only (Routine) - Closed Specialty Diagnoses / Procedures Referred By Sindy naidu Referred To Contact [facility] Diagnoses Encounter for screening mammogram for malignant neoplasm of breast Procedures ERNA SCREENING W ARNULFO SCREENING DIGITAL BREAST TOMOSYNTHESIS BI SCREENING MAMMOGRAPHY BI 2-VIEW BREAST INC CAD Dolores Hodge APRN.CNP [address] [place] [address] [facility] [place] [address] Referral ID Status Reason Start Date Expiration Date V isits Requested Visits Authorized [id number] Closed Auto-Generate d Referral 03/07/2024 04/06/[address] [facility] Chief Complaint and Reason for Visit Chief Complaint CONCERN FOR UTI Dysuria Reason for Visit Cystitis Chief Complaint CONCERN FOR UTI Dysuria CONCERN FOR UTI Reason for Visit Cystitis UTI (urinary tract infection) Chief Complaint Admit Date CONCERN FOR UTI October 08, 2024 12:3 2pm Chief Complaint Admit Date CONCERN FOR UTI October 08, 2024 12:3 2pm right flank pain October 16, 2024 1:08 pm SINUS PRESSURE, R EAR PAIN November 07, 2024 12:58pm Family History No Family History Records Found [...] CONSULT TO MEDICAL GENETICS - GENERAL OFFICE/OUTPATIENT [facility] 60 MINUTES MEDICAL GENETICS COUNSELING EACH 30 MINUTES Dolores Hodge APRN.CNP [address] [place] [address] [facility] [address] [place] [address] Referral ID Status Reason Start Date Expiration Date Visits Requested Visits Authorized [id number] Pending Review PCP Requested Referral Auto-Generate d Referral 03/07/2025 1 1 Specialty Diagnoses / Procedures Referred By Contac t Referred To Contact [facility] Diagnoses Encounter for screening mammogram for malignant neoplasm of breast Procedures ERNA SCREENING W ARNULFO SCREENING DIGITAL BREAST TOMOSYNTHESIS BI SCREENING MAMMOGRAPHY BI 2-VIEW BREAST INC CAD Fernandomanolo Dolores, FOOD SCIENCE TECHNICIAN.FIRE PROTECTION DESIGNER [address] [place] [address] [facility] [address] [place] [address] Referral ID Status Reason Start Date Expiration Date V isits Requested Visits Authorized [id number] Closed Auto-Generate d Referral 03/07/2024 04/06/2025 1 [...] or prosecute any alcohol or drug abuse patient.[facility] HospitalIn the event this information is protected by the Federal Confidentiality of Alcohol and Drug Abuse Patient Records regulations: The Federal rules restrict any use of the information to criminally investigate or prosecute any alcohol or drug abuse patient.[facility] HospitalIn the event this information is protected by the Federal Confidentiality of Alcohol and Drug Abuse Patient Records regulations: The Federal rules restrict any use of the information to criminally investigate or prosecute any alcohol or drug abuse patient.[facility] HospitalIn the event this information is protected by the Federal Confidentiality of Alcohol and Drug Abuse Patient Records regulations: The Federal rules restrict any use of the information to criminally investigate or prosecute any alcohol or drug abuse patient.[facility] HospitalIn the event this information is protected by the Federal Confidentiality of Alcohol and Drug Abuse Patient Records regulations: The Federal rules restrict any use of the information to criminally investigate or prosecute any alcohol or drug abuse patient.[facility] HospitalIn the event this information is protected by the Federal Confidentiality of Alcohol and Drug Abuse Patient Records regulations: The Federal rules restrict any use of the information to criminally investigate or prosecute any alcohol or drug abuse patient.[facility] HospitalIn the event this information is protected by the Federal Confidentiality of Alcohol and Drug Abuse Patient Records regulations: The Federal rules restrict any use of the information to criminally investigate or prosecute any alcohol or drug abuse patient.[facility] Reason for Visit (unrecogniz ed section and content) Reason Onset Date Comments Refill Request 01/01/2022 Reason Comments Yearly Exam Reason Comments Well Woman Reason Comments Orders Reason Comments Radiology Mammogram Care Teams (unrecognized sec tion and content) Team Status: Active Member Role Status Dates Dinesh Cloeman Family Provider Active Dr. Mata Morrison MD [...] 2024 End: October 08, 2024 Team Status: Active Member Role/Relationship Status Dates Dinesh Coleman Family Provider Active Roshni Jorgensen MD Primary Care Provider Active Team Status: Active Member Role/Relationship Status Dates Roshni Jorgensen MD Primary Care Provider Active St art: October 16, 2024 Roshni Jorgensen MD Attending Provider Active Start : October 16, 2024 Roshni Jorgensen MD Referring Provider Active Start : October 16, 2024 Team Status: Inactive Member Role/Relationship Status Dates Roshni Jorgensen MD Primary Care Provider Active St art: November 07, 2024 End: November 07, 2024 Roshni Jorgensen MD Referring Provider Active Start : November 07, 2024 End: November 07, 2024 JOCY Sharp Attending Provider Active Start: November 07, 2024 End: November 07, 2024 Team Status: Inactive Member Role/Relationship Status Dates Roshni Jorgensen MD Primary Care Provider Active St art: October 16, 2024 End: October 16, 2024 Roshni Jorgensen MD Attending Provider Active Start : October 16, 2024 End: October 16, 2024 Roshni Jorgensen MD Referring Provider Active Start : October 16, 2024 End: October 16, 2024 Goals (unrecognized section and content) Goals may be documented in a n alternate sectionGoals may be documented in an alternate sectionGoals may be documented in an alternate sectionGoals may be documented in an alternate sectionGoals may be documented in an alternate sectionGoals may be documented in an alternate section INFORMATION SOURCE (unrecogn ized section and content) DATE CREATED AUTHOR 05/25/2024 [facility] DATE CREATED AUTHOR AUTHOR'S BERNARD ATION 11/11/2024 [facility] FOR RECORDS PERTAINING TO PATIENTS WHO [...] BE BASED ON THE PRIMARY CLINICAL RECORDS. [facility] [employer] [facility]. provides no warranty or guarantee of the accuracy or completeness of information in this document.
[2025-03-19 21:05] VITALS: BP 124/79; PULSE 104; RESP 16; TEMP 36.9; O2SAT 100
[2025-03-19 21:39] VITALS: BP 126/85; PULSE 97; RESP 18; TEMP 36.9; O2SAT 99
--- OUTSIDE RECORDS SUMMARY | 2025-03-19 21:53 | XMS RPT_ITS | CCD ---
Author Organization [facility] CliniSymn Care Team Providers Care Stage Rigger Name Role Phone Brave SAFE DEPOSIT CLERK, Elzbieta K Unavailable Unavailable Brave SAFE DEPOSIT CLERK, Elzbieta K Unavailable Unavailable Unavailable Primary Care Provider UnavailDr. Mata Cruz Primary Care Provider [phone] Dr. Mata Morrison Referring Provider JOCY Henry [...] Care Unavailable Dat Wilcox Attending Unavailable Smith BATTERY CHECKER, Mata Toro Attending Unavailable Mata Morrison Referring Unavailable Mata Morrison Primary Care Unavailable Roshni Jorgensen Attending Unavailable Roshni Jorgensen Primary Care Unavailable Roshni Jorgensen Referring Unavailable Mata Morrison Primary Care Unavailable Dat Wilcox Attending Unavailable Smith BATTERY CHECKERMata Referring Unavailable Smith BATTERY CHECKER, Mata Toro Attending Unavailable Mata Morrison Primary [...] TABS 1 tab po daily NORGESTIMATE-ETH ESTRADIOL [id number] Elzbieta Ko [facility] Comment on above: Take 1 tablet by luz elena th once daily. hydrocortisone 10 mg/ml / neomycin 3.5 mg/ml / polymyxin b 20678 unt/ml otic suspension (6 sources) Aminoglycoside Antibacterial, Polymyxin-class Antibacterial, Corticosteroid Start: 11-07-2024 Neomycin-Polymyxin -Hc 3.5-10,000-1 mg/mL-unit/mL-% drops,suspension Active 4 NMA OTIC THREE TIMES A DAY 10 November 07, 2024 12:00am November 16, 2024 12:00am Start: 01-29-2024 End: 02-08-2024 Timnbnrn-Gsjoyoptb-Lg 3.5-10 ,000-1 mg/mL-unit/mL-% solution Discontinued 4 NMA [...] 09, 2020 6:40am BIOTIN MAXIMUM S TRENGTH 88448 MCG TABS BIOTIN [id number] Elzbieta K Brave SAFE DEPOSIT CLERK brompheniramine maleate 0.4 mg/ml / dextromethorphan hydrobromide 2 mg/ml / pseudoephedrine hydrochloride 6 mg/ml oral solution (1 source) alpha-Adrenergic Agonist, Uncompetitive S-ibylxa-I-aspartate Receptor Antagonist, Sigma-1 Agonist Start: 03-06-2019 End: 01-01-2022 take 5 mL by mouth every six hours as needed for cough and cough Zvicnzncngkezzz-Kwdalysgu-SK (BROMFED DM) 2-30-10 mg/5 mL syrup Indications: Cough Take 5 mL by mouth four times daily as needed. 118 mL 0 03/06/2019 01/01/2022 Discontinued Comment on above: Take 5 mL by mouth f our times daily as needed. CALCIUM POLYCARBOPHIL TABS (2 sources) FIBER TABS 8 - 1 0 per day CALCIUM POLYCARBOPHIL TABS [id number] Elzbieta K Brave SAFE DEPOSIT CLERK Methylcellulose (1 source) End: 01-01-2022 METHYLCELLULOSE (FIBER THERAPY LAXATIVE ORAL) Take by mouth. 0 01/01/2022 Discontinued Comment on above: Take by mouth. MULTIPLE VITAMIN (1 source) DAILY MULTIPLE V ITAMINS TABS MULTIPLE VITAMIN [id number] Elzbieta Cardonas SAFE DEPOSIT CLERK MULTIPLE VITAMIN (1 source) DAILY MULTIPLE V ITAMINS TABS MULTIPLE VITAMIN 08690834940 Elzbieta Cradonas SAFE DEPOSIT CLERK Multivitamin preparation (9 sources) Start: 10-10-2019 End: 09-09-2020 take 1 tablet by mouth once daily Multivitamin Discontinued 1 TABLET PO DAILY October 10, 2019 12:00am September 09, 2020 6:40am multivitamin (MU LTIPLE VITAMIN ORAL) MULTIPLE VITAMIN DAILY MULTIPLE VITAMINS TABS MULTIPLE VITAMIN [id number] Elzbieta Ko CMA [facility] (20[address]) Active multivitamin (MU LTIPLE VITAMIN ORAL) MULTIPLE VITAMIN DAILY MULTIPLE VITAMINS TABS MULTIPLE VITAMIN 62216615836 Elzbieta Ko CMA [facility] ([address]) 0 Active Comment on above: MULTIPLE VITAMIN JASON LY MULTIPLE VITAMINS TABS MULTIPLE VITAMIN 48204162458 Elzbieta Ko SAFE DEPOSIT CLERK [facility] ([address]) Multivitamin tablet (4 sources) Start: 020 End: [...] TABS 1 tab po daily NORGESTIMATE-ETH ESTRADIOL 34707323753 Elzbieta Ko CMA omeprazole 20 mg delayed [...] CAPS 1 po daily SACCHAROMYCES BOULARDII CAPS [id number] Elzbieta K Brave SAFE DEPOSIT CLERK take 1 capsule by mouth once jason ly PROBIOTIC CAPS 1 po daily SACCHAROMYCES BOULARDII CAPS 16694786695 Elzbieta K Brave SAFE DEPOSIT CLERK Problems Active Problems Problem Classification Problem Date [...] Reporton 0 11-07-2024 Urgent Care Visit Report [facility] [address] , [address] [place] [address] OFFICE VISIT Date of Service: 11/07/24 MR#: [id number] Acct: [id number] Name: OZIEL THOMAS Rep #: [id number] : 1985 Provider: JOCY Carter Age/Sex: 39/F Location: [facility] Status: Signed Intake Vital Signs 01/29/24 10:00 [...] last 2.5 weeks and its not helping. [facility] Medical History UTI (urinary tract infection) Elevated [...] exertion. No close contacts with similar complaints. Rtww-iaj-mlszszo NSAIDs and acetaminophen taken without relief. No [...] and movement (more content not included)... Normal [facility] Cheston [facility] Chest [facility] Services [address] [place] [address] Acute [facility]domen Inc Chest MR#: [id number] Acct: [id number] Name: OZIEL THOMAS Rep #: [id number] : 1985 F 39 From: [facility] Mendes PCP: Dr. Roshni Jorgensen MD Status: REG CLI Study: Acute Abdomen Inc Chest Date of Exam: 10/16/24 Exam# [id number] Ordering Dr: Roshni Jorgensen MD PROCEDURE: ACUTE ABDOMEN INC CHEST 10/16/2024 REASON FOR EXAM: RIGHT FLANK PAIN TECHNIQUE: ACUTE ABDOMEN INC CHEST, five view. COMPARISON: Community Life Director from the CT examination of 10/17/2020 RAD/Acute [...] of the spine are seen Reading Location: [place] [address] CC: Dr. Roshni Jorgensen MD Baton Teacher: Signed Normal [facility] Urine Cultureon 10-10-2024 URC Escherichia coli [place] Count >100,000 Escherichia coli: REACTION Ampicillin Islt [...] TMP SMX Islt TAJ <=20 S Normal [facility] Comment on above: Performed By: #### M 100.2208 #### [facility] [address] [place], [place], [address] Laboratory - Chemistry and C hemistry - challengeOrdered By: Dat Guo on 10-08-2024 Bilirubin Ql (U) Negative [facility] Glucose Ql (U) Negative [facility] Ketones Ql (U) Negative [facility] pH (U) 6.5 [pH] [facility] Specific gravity (U) [Rel density] 1.005 [facility] Urobilinogen (U) [Mass/Vol] 0.0926129 mg/dL [facility] - Hematology and Cell countsOrdered By: Dat Guo on 10-08-2024 Hemoglobin Ql (U) Moderate [facility] - Specimen inform ationOrdered By: Dat Guo on 10-08-2024 Clarity (U) Cloudy [facility] Color (U) STRAW [facility] - UrinalysisOrder ed By: Dat Guo on 10-08-2024 Nitrite Ql (U) Negative [facility] Protein Ql (U) Trace [facility] No Panel InformationOrdered By: Dat Guo on 10-08-2024 Urine Leukocytes Positive [facility] Urine Non-Hemolyzed Blood Large [facility] Urgent Care Visit Reporton 0 10-08-2024 Urgent Care Visit Report [facility] [address] , [address] [place], [place] [address] OFFICE VISIT Date of Service: 10/08/24 MR#: [id number] Acct: [id number] Name: OZIEL THOMAS Rep #: [id number] : 1985 Provider: JOCY Carter Age/Sex: 39/F Location: [facility] Status: Signed Intake Vital Signs 01/29/24 10:00 [...] color/ character of stool; cloudy urine. No wsmm-npe-cgaahzu products taken to assist. No other associated [...] MA on 10/08/24 12:50 Off Ur Spec [place] 1.005 Last Edit by Prachi Zamora MA on 10/08/24 12:50 Office Urine pH 6.5 Last Edit by Prachi Zamora MA on 10/08/24 12:50 Office Urine Bilirubin Negative Last Edit by Prachi Zaomra MA on 10/08/24 12:50 Office Urine Urobilinogen 0.2 mg/dL Last Edit by Prachi Zamora MA on 10/08/24 12:50 Office Urine Blood Moderate Last Edit by Prachi Zamora MA on 10/08/24 12:50 Office Urine Blood Hemolyzed Large Last Edit by Prachi Zamora MA (more content not included)... Normal [facility] Urine cultureOrdered By: Familia Guo on 10-08-2024 Bacteria identified Cx Nom (U) Escherichia coli Abnormal [facility] CNPNon 05-21-2024 LAILAN Telephone (OBGYWM) ---- OZIEL THOMAS ([id number]) 1985 F Date Time Provider Department 05/21/24 [...] been completed. Please have your patient call [phone] or ext. [phone] to schedule a breast imaging exam appointment for additional evaluation. Please ensure that you have placed either an electronic or hard copy order for the additional exam recommended from the screening mammogram report. We understand that this is an inconvenience to you and greatly appreciate your cooperation. If your patient has already scheduled an appointment, please disregard this letter. Sincerely, [facility] Deisy Washington RN 05/22/2024 10:10 AM Signed Left message for patient to call office or check MICMALIt message. FAHAD Escobar Trisha, RN 05/23/2024 2:27 PM Signed 3rd attempt. Patient has not read [employer] message. Left message for patient to call office or check mychart message. Letter sent. Deisy Washington RN Allergies As of Date: 05/21/2024 (No Known Allergies) Date Reviewed: 03/07/2024 Reviewed by: Dolores Hodge APRN.INTERIOR DESIGN COORDINATOR - Fully Assessed Reason for Visit: Radiology Mammogram [1485] Prescriptions as of 05/23/2024 - norgestimate 0.25 mg-ethinyl estradiol 35 mcg (SPRINTEC) 0.25-35 mg-mcg per tablet Take 1 tablet by mouth once daily. - multivitamin (MULTIPLE VITAMIN ORAL) MULTIPLE VITAMIN DAILY MULTIPLE VITAMINS TABS MULTIPLE VITAMIN [id number] Elzbieta K Brave SAFE DEPOSIT CLERK [facility] ([address]) - L.ACID/L.CASEI/B.BI F/B.AFIA/FOS (PROBIOTIC BLEND ORAL) Take by mouth. Problem List As Of Date 05/21/2024 Noted Resolved SUPERVIS NORMAL 1ST PREG [Z34.00] 04/11/2007 12/29/2007 EXCESS FET GRTH-ANTEPART [O36.60X0] 12/05/2007 12/29/2007 Hemorrhoids, Internal [K64.8] 09/25/2009 Nipple discharge [N64.52] 01/30/2014 07/13/2016 Family history of malignant neoplasm of breast *03/07/2024 Letter Text Encounter Status:Closed by DOLORES HODGE on 05/23/24 [facility] 03-12-2024 KENJI Telephone (OBGYWM) ---- OZIEL THOMAS ([id number]) 1985 F Date Time Provider Department 03/12/24 JENAE ROSA OBJEANCARLOSWMarybel During your visit today, we recorded the following information about you: Allergies As of Date: 03/12/2024 (No Known Allergies) Date Reviewed: 03/07/2024 Reviewed by: Dolores Hodge APRN.INTERIOR DESIGN COORDINATOR - Fully Assessed Reason for Visit: Orders [681] Primary Visit Diagnosis:Abnormal mammogram [R92.8] Order(s):US BREAST LTD LEFT [[id number]] Order #: [id number] FUTURE ERNA DIAGNOSTIC LEFT [[id number]] Order #: [id number] FUTURE Prescriptions as of 03/12/2024 - norgestimate 0.25 mg-ethinyl estradiol 35 mcg (SPRINTEC) 0.25-35 mg-mcg per tablet Take 1 tablet by mouth once daily. - multivitamin (MULTIPLE VITAMIN ORAL) MULTIPLE VITAMIN DAILY MULTIPLE VITAMINS TABS MULTIPLE VITAMIN [id number] Elzbieta Ko SAFE DEPOSIT CLERK [facility] ([address]) - L.ACID/L.CASEI/B.BI F/B.AFIA/FOS (PROBIOTIC BLEND ORAL) Take by mouth. Problem List As Of Date 03/12/2024 Noted Resolved SUPERVIS NORMAL 1ST PREG [Z34.00] 04/11/2007 12/29/2007 EXCESS FET GRTH-ANTEPART [O36.60X0] 12/05/2007 12/29/2007 Hemorrhoids, Internal [K64.8] 09/25/2009 Nipple discharge [N64.52] 01/30/2014 07/13/2016 Family history of malignant neoplasm of breast *03/07/2024 Encounter Status:Closed by JENAE ROSA on 03/12/24 Normal [facility] CNOVon 03-07-2024 CNOV Office Visit (OBGYWM) ---- OZIEL THOMAS ([id number]) 1985 F Date Time Provider Department 03/07/24 8:15 AM DOLORES HODGE During your visit today, we recorded the following information about you: Blood pressure Weight Height Last Period 110/64 78.5 kg 1.606 m 02/08/24 Dolores Hodge APRN.CNP 03/07/2024 8:31 AM Signed Demand Planning Manager offered: Patient declines. Oziel is a 38 [...] L2 SAB0 IAB0 Ectopic0 Multiple0 Live Births2 Steward/Stewardess Wine History LMP: 02/08/2024 (Exact Date), Having periods Age at Menarche: Age at First : Age at Menopause: Steward/Stewardess Wine History Comments: Sexual Activity: Yes; Male Contraception: [...] discussed with the Patient or Patient's Authorized Note Specialist. As applicable, any other physician, advance practice provider, medical student, or other health professional student that will be observing or involved in the sensitive examination for educational or training purposes was discussed with the Patient or Authorized Note Specialist. The Patient or Authorized Note Specialist has agreed to proceed with the [...] bilateral labia majora, normal Bartholin's glands, urethra, Durbin's glands, + 3 mm raised mole to [...] - ICD9: (more content not included)... Normal [facility] SCREENING W TOMOon 03-07 ERNA SCREENING W ARNULFO * * *Final Report* * * DATE OF EXAM: Mar 07 2024 10:32AM WRW 0582 - ERNA SCREENING W ARNULFO / PROCEDURE REASON: Encounter for screening mammogram for malignant neoplasm of breast * * * * Physician Interpretation * * * * RESULT: [place] [address] [place] [id number] #[id number] - [facility] SCREENING W ARNULFO HISTORY: Patient [...] Erica Adrian M.D. Electronically signed on: 03/10/2024 Baton Teacher: RENY Transcribe Date/Time: Mar 07 2024 9:48A Dictated by: ERICA ADRIAN MD This examination was interpreted and the report reviewed and electronically signed by: ERICA ADRIAN MD on Mar 10 2024 7:24AM EST [id number] Normal [facility] Urine Cultureon 02-01-2024 URC Staphylococcus saprophyticus [place] Count 25,000-50,000 Staphylococcus saprophyticus: REACTION cefOXitin Susc Islt Clindamycin.induced Susc Islt NEG Gentamicin Islt TAJ <=0.5 S Nitrofurantoin Islt TAJ <=16 S Oxacillin Susc Islt S Tetracycline Islt TAJ <=1 S Vancomycin Islt TAJ <=0.5 S Normal [facility] Comment on above: Performed By: #### M 100.4963 #### [facility] [address] [place], [address] Urgent Care Visit Reporton 1 03-30-2023 Urgent Care Visit Report [facility] [address], [address] [place], [place] [address] OFFICE VISIT Date of Service: 01/29/24 MR#: [id number] Acct: [id number] Name: OZIEL THOMAS Rep #: [id number] : 1985 Provider: CARLYN garzon Age/Sex: 38/F Location: [facility] Status: Signed Intake Vital Signs 12/27/22 07:40 [...] Chief Complaint: dysuria and lt ear concerns Oncology Navigator Required: No Accompanied by: Self Is patient [...] all relate (more content not included)... Normal [facility] Basophil percentageOrdered B y: Dat Guo on 12-27-2022 Basophil percentage 25-50 SEEN /hpf 0-5 [facility] Bilirubin Test strip Ql (U)O rdered By: Dat Guo on 12-27-2022 Bilirubin Ql (U) Negative Negative [facility] Culture, urineOrdered By: St barbie Guo on 12-27-2022 Bacteria identified Cx Nom (U) Positive [facility] Ketones Test strip Ql (U)Ord ered By: Dat Guo on 12-27-2022 Ketones Ql (U) 5 mg/dl Negative [facility] - Chemistry and C hemistry - challengeon 12-27-2022 Bilirubin Ql (U) Negative [facility] Glucose Ql (U) Negative [facility] Ketones Ql (U) Trace (5) [facility] Specific gravity (U) [Rel density] 1.030 [facility] Urobilinogen (U) [Mass/Vol] Negative [facility] - Hematology and Cell countson 12-27-2022 Hemoglobin Ql (U) Large [facility] - Specimen inform ationon 12-27-2022 Clarity (U) Clear [facility] Color (U) Yellow [facility] - Urinalysison Nitrite Ql (U) Negative [facility] Protein Ql (U) Negative [facility] Mucus LM Ql (Urine sed)Order ed By: Dat Guo on 12-27-2022 Mucus Ql (Urine sed) 1+ /hpf [facility] Nitrite Test strip Ql (U)Ord ered By: Dat Guo on 12-27-2022 Nitrite Ql (U) Negative Negative [facility] No Panel Informationon 12-27 Urine Leukocytes Positive [facility] Urine Non-Hemolyzed Blood [facility] Protein Test strip Ql (U)Ord ered By: Dat Guo on 12-27-2022 Protein Ql (U) 30 mg/dl Negative [facility] Squamous epithelial cells de tection in urine sediment by light microscopyOrdered By: Dat Guo on 12-27-2022 Epithelial cells.squamous LM Ql (Urine sed) 0-5 SEEN /hpf 5-10 [facility] Urine blood detectionOrdered By: Dat Guo on 12-27-2022 RBC Ql (U) 150 /ul Negative [facility] RBC Ql (U) 5-10 SEEN /hpf 0-5 [facility] Urine clarityOrdered By: Familia Guo on 12-27-2022 Clarity (U) Clear Clear [facility] Urine color determinationOrd ered By: Dat Guo on 12-27-2022 Color (U) Yellow Yellow [facility] Urine glucose detectionOrder ed By: Dat Guo on 12-27-2022 Glucose Ql (U) Normal mg/dl Normal [facility] Urine leukocyte esterase det ection by dipstickOrdered By: Dat Guo on 12-27-2022 Leukocyte esterase Test strip Ql (U) 100 /ul Negative [facility] Urine pHOrdered By: Dat lundberg on 12-27-2022 pH (U) 5.0 [pH] 5.0 - 8.0 [facility] Urine sediment bacteria coun t by microscopy (number/high power field)Ordered By: Dat Guo on 12-27-2022 Bacteria LM.HPF (Urine sed) [#/Area] 1 /[HPF] None Seen [facility] Urine specific gravity measu rementOrdered By: Dat Guo on 12-27-2022 Specific gravity (U) [Rel density] 1.020 1.002-1.030 [facility] Urobilinogen Auto test strip Ql (U)Ordered By: Dat Guo on 12-27-2022 Urobilinogen Ql (U) Normal mg/dl Normal [facility] Amorphous sediment detection in urine sediment by light microscopyOrdered By: Lawrence Yeager on 09-22-2022 Amorphous sediment LM Ql (Urine sed) 1+ URATE [facility] Basophil percentageOrdered B y: Lawrence Yeager on 09-22-2022 Basophil percentage 25-50 SEEN /hpf 0-5 [facility] Bilirubin Test strip Ql (U)O rdered By: Lawrence Yeager on 09-22-2022 Bilirubin Ql (U) Negative Negative [facility] Culture, urineOrdered By: Florentino Yeager on 09-22-2022 Bacteria identified Cx Nom (U) Presumptive E. coli [facility] Ketones Test strip Ql (U)Ord ered By: Lawrence Yeager on 09-22-2022 Ketones Ql (U) Negative Negative [facility] Mucus LM Ql (Urine sed)Order ed By: Lawrence Yeager on 09-22-2022 Mucus Ql (Urine sed) 0 SEEN /hpf [facility] Nitrite Test strip Ql (U)Ord ered By: Lawrence Yeager on 09-22-2022 Nitrite Ql (U) Negative Negative [facility] Protein Test strip Ql (U)Ord ered By: Lawrence Yeager on 09-22-2022 Protein Ql (U) 30 mg/dl Negative [facility] Squamous epithelial cells de tection in urine sediment by light microscopyOrdered By: Lawrence Yeager on 09-22-2022 Epithelial cells.squamous LM Ql (Urine sed) 0-5 SEEN /hpf 5-10 [facility] Urine blood detectionOrdered By: Lawrence Yeager on 09-22-2022 RBC Ql (U) 250 /ul Negative [facility] RBC Ql (U) 10-25 SEEN /hpf 0-5 [facility] Urine clarityOrdered By: Ajay Yeager on 09-22-2022 Clarity (U) Sl. Cloudy Clear [facility] Urine color determinationOrd ered By: Lawrence Yeager on 09-22-2022 Color (U) Yellow Yellow [facility] Urine glucose detectionOrder ed By: Lawrence Yeager on 09-22-2022 Glucose Ql (U) Normal mg/dl Normal [facility] Urine leukocyte esterase det ection by dipstickOrdered By: Lawrence Yeager on 09-22-2022 Leukocyte esterase Test strip Ql (U) 500 /ul Negative [facility] Urine pHOrdered By: Lawrence pak on 09-22-2022 pH (U) 6.5 [pH] 5.0 - 8.0 [facility] Urine sediment bacteria coun t by microscopy (number/high power field)Ordered By: Lawrence Yeager on 09-22-2022 Bacteria LM.HPF (Urine sed) [#/Area] 0 /[HPF] None Seen [facility] Urine specific gravity measu rementOrdered By: Lawrence Yeager on 09-22-2022 Specific gravity (U) [Rel density] 1.010 1.002-1.030 [facility] Urobilinogen Auto test strip Ql (U)Ordered By: Lawrence Yeager on 09-22-2022 Urobilinogen Ql (U) Normal mg/dl Normal [facility] - Chemistry and C hemistry - challengeon 09-21-2022 Bilirubin Ql (U) Negative [facility] Glucose Ql (U) Negative [facility] HCG ( test) Ql (U) Negative [facility] Ketones Ql (U) Negative [facility] pH (U) 6.5 [pH] [facility] Specific gravity (U) [Rel density] 1.005 [facility] Urobilinogen (U) [Mass/Vol] 0.2052784 mg/dL [facility] - Hematology and Cell countson 09-21-2022 Hemoglobin Ql (U) Hemolyzed [facility] - Specimen inform ationon 09-21-2022 Clarity (U) Clear [facility] Color (U) YELLOW [facility] - Urinalysison Nitrite Ql (U) Negative [facility] Protein Ql (U) Trace [facility] No Panel Informationon 09-21 Urine Leukocytes Positive [facility] Urine Non-Hemolyzed Blood Large [facility] Clinical Lists Update: 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 Mata Morrison MD Work Phone: [facility] 11-07-2024 12:59-0400 Diastolic blood pressure 80 mm[Hg] Dr. Mata Morrison MD Work Phone: [facility] 11-07-2024 12:59-0400 Heart rate 73 /min Dr. Mata Morrison MD Work Phone: [facility] 11-07-2024 12:59-0400 Respiratory rate 16 /min Dr. Mata Morrison MD Work Phone: [facility] 11-07-2024 12:59-0400 SaO2% (BldA) [Mass fraction] 99 % Dr. Mata Morrison MD Work Phone: [facility] 11-07-2024 12:59-0400 Systolic blood pressure 122 mm[Hg] Dr. Mata Morrison MD Work Phone: [facility] 10-08-2024 12:43-0400 Body temperature 98.4 [degF] Dr. Mata Morrison MD Work Phone: [facility] 10-08-2024 12:43-0400 Body weight 82.[address] Mata Morrison MD Work Phone: [facility] 10-08-2024 12:43-0400 Diastolic blood pressure 60 mm[Hg] Dr. Mata Morrison MD Work Phone: [facility] 10-08-2024 12:43-0400 Heart rate 68 /min Dr. Mata Morrison MD Work Phone: [facility] 10-08-2024 12:43-0400 Respiratory rate 14 /min Dr. Mata Morrison MD Work Phone: [facility] 10-08-2024 12:43-0400 SaO2% (BldA) [Mass fraction] 99 % Dr. Mata Morrison MD Work Phone: [facility] 10-08-2024 12:43-0400 Systolic blood pressure 120 mm[Hg] Dr. Mata Morrison MD Work Phone: [facility] 03-07-2024 08:03-0500 Body height 160.6 cm Dolores Haury ANIMAL KILLER.INTERIOR DESIGN COORDINATOR Work Phone: [facility] 03-07-2024 08:03-0500 Body mass index (BMI) [Ratio] 30.44 kg/m2 Dolores Haury ANIMAL KILLER.INTERIOR DESIGN COORDINATOR Work Phone: [facility] 03-07-2024 08:03-0500 Body weight 78.47 kg Dolores Haury ANIMAL KILLER.INTERIOR DESIGN COORDINATOR Work Phone: [facility] 03-07-2024 08:03-0500 Diastolic blood pressure 64 mm[Hg] Dolores Haury ANIMAL KILLER.INTERIOR DESIGN COORDINATOR Work Phone: [facility] 03-07-2024 08:03-0500 Systolic blood pressure 110 mm[Hg] Dolores Haury ANIMAL KILLER.INTERIOR DESIGN COORDINATOR Work Phone: [facility] 02-11-2023 09:40-0500 Body height 160 cm Jenae Buchanan ANIMAL KILLER.INTERIOR DESIGN COORDINATOR Work Phone: [facility] 02-11-2023 09:40-0500 Body weight 74.66 kg Jenae Moe ANIMAL KILLER.INTERIOR DESIGN COORDINATOR Work Phone: [facility] 02-11-2023 09:40-0500 Diastolic blood pressure 60 mm[Hg] Jenae Moe ANIMAL KILLER.INTERIOR DESIGN COORDINATOR Work Phone: [facility] 02-11-2023 09:40-0500 Systolic blood pressure 90 mm[Hg] Jenae Rosa APRN.CNP Work Phone: [facility] 12-27-2022 07:40-0400 Body height 160.[address] Mata Morrison Work Phone: [facility] 12-27-2022 07:40-0400 Body mass index (BMI) [Ratio] 30.1 kg/m2 Dr. Mata Morrison Work Phone: [facility] 12-27-2022 07:40-0400 Body temperature 98.2 [degF] Dr. Mata Morrison Work Phone: [facility] 12-27-2022 07:40-0400 Body weight 77.[address] Mata Morrison Work Phone: [facility] 12-27-2022 07:40-0400 Diastolic blood pressure 84 mm[Hg] Dr. Mata Morrison Work Phone: [facility] 12-27-2022 07:40-0400 Heart rate 63 /min Dr. Mata Morrison Work Phone: [facility] 12-27-2022 07:40-0400 Respiratory rate 17 /min Dr. Mata Morrison Work Phone: [facility] 12-27-2022 07:40-0400 SaO2% (BldA) [Mass fraction] 98 % Dr. Mata Morrison Work Phone: [facility] 12-27-2022 07:40-0400 Systolic blood pressure 120 mm[Hg] Dr. Mata Morrison Work Phone: [facility] 09-21-2022 12:28-0400 Body height 160.[address] Mata Morrison Work Phone: [facility] 09-21-2022 12:28-0400 Body mass index (BMI) [Ratio] 35.4 kg/m2 Dr. Mata Morrison Work Phone: [facility] 09-21-2022 12:28-0400 Body temperature 97.4 [degF] Dr. Mata Morrison Work Phone: [facility] 09-21-2022 12:28-0400 Body weight 90.[address] Mata Morrison Work Phone: [facility] 09-21-2022 12:28-0400 Diastolic blood pressure 80 mm[Hg] Dr. Mata Morrison Work Phone: [facility] 09-21-2022 12:28-0400 Heart rate 86 /min Dr. Mata Morrison Work Phone: [facility] 09-21-2022 12:28-0400 Respiratory rate 16 /min Dr. Mata Morrison Work Phone: [facility] 09-21-2022 12:28-0400 SaO2% (BldA) [Mass fraction] 99 % Dr. Mata Morrison Work Phone: [facility] 09-21-2022 12:28-0400 Systolic blood pressure 112 mm[Hg] Dr. Mata Morrison Work Phone: [facility] Encounters Encounter Date Encounter Type Care Provider Facility Start: 11-07-2024 End: 11-07-2024 Patient encounter procedure Dat Guo [place] -[facility] Work Phone: Start: 11-07-2024 End: 11-07-[address] Mata Morrison MD Work Phone: [facility] Start: 10-16-2024 End: 10-16-[address] Mata Morrison MD Work Phone: -[facility] Start: 10-16-2024 End: 10-16-[address] Roshni Jorgensen MD -[facility] Work Phone: Start: 10-16-2024 End: 10-16-2024 ambulatory Roshni Jorgensen Facility:[facility] Start: 10-08-2024 End: 10-08-[address] Mata Morrison MD Work Phone: -Laboratory [facility] Start: 10-08-2024 End: 10-08-2024 Patient encounter procedure Dat SANDRA -Laboratory Specimen Work Phone: Start: 10-08-2024 End: 10-08-2024 Patient encounter procedure Dat Guo [place] [facility] Work Phone: Start: 10-08-2024 End: 10-08-[address] Mata Morrison MD Work Phone: [facility] Start: 10-08-2024 End: 10-08-2024 ambulatory Mata Morrison Facility:[facility] Start: 05-21-2024 End: 05-23-2024 Telephone encounter Dolores Hodge APRN.CNP Work Phone: OB/Gynecology Comment on above: Radiology Mammogram Start: 03-15-2024 End: 03-15-2024 ambulatory Dolores Hodge APRN.INTERIOR DESIGN COORDINATOR Work Phone: OB/Gynecology Comment on above: Breast Imaging Start: 03-15-2024 End: 03-15-2024 E-mail encounter from caregiver Dolores Hodge APRN.CNP Work Phone: OB/Gynecology Start: 03-12-2024 End: 03-12-2024 Telephone encounter Jenae Rosa APRN.INTERIOR DESIGN COORDINATOR Work Phone: OB/Gynecology Comment on above: Orders Start: 03-07-2024 End: 03-07-2024 ambulatory DOLORES HODGE Facility:[facility] Start: 03-07-2024 End: 03-07-2024 Subsequent hospital visit by physician Screen Mammo [facility] Mammogram Comment on above: Encounter for screen ing mammogram for malignant neoplasm of breast [Z12.31] Start: 03-07-2024 End: 03-07-2024 Patient encounter procedure Dolores Hodge APRN.INTERIOR DESIGN COORDINATOR Work Phone: OB/Gynecology Comment on above: Encounter for gyneco logical examination (general) (routine) without abnormal findings (Primary Dx); General counseling for prescription of oral contraceptives; Screening for cervical cancer; Screening for HPV (human papillomavirus); Encounter for screening mammogram for malignant neoplasm of breast; Family history of malignant neoplasm of breast Start: 03-07-2024 End: 03-07-2024 Patient encounter status Dolores Hodge APRN.CNP Work Phone: [facility] Start: 03-07-2024 End: 03-07-2024 ambulatory DOLORES HODGE Facility:[facility] Start: 03-07-2024 Encounter for gynecological examination (general) (routine) without abnormal findings DOLORES HODGE [facility] Start: 01-29-2024 End: 01-30-2024 ambulatory Mata Mtz NP Facility:[facility] Start: 02-11-2023 End: 02-11-2023 Patient encounter procedure Jenae Rosa APRN.CNP Work Phone: OB/Gynecology Comment on above: Encounter for gyneco logical examination (general) (routine) without abnormal findings (Primary Dx); General counseling for prescription of oral contraceptives; Screening for cervical cancer; Encounter for screening for human papillomavirus (HPV) Start: 02-11-2023 End: 02-11-2023 Patient encounter status Jenae Rosa APRN.CNP Work Phone: [facility] Work Phone: Start: 12-27-2022 End: 12-27-[address] Mata Morrison Work Phone: [facility] Work Phone: Start: 12-27-2022 End: 12-27-[address] Mata Morrison Work Phone: [facility]-Laboratory, Specimen Work Phone: Start: 12-27-2022 End: 12-27-[address] Mata Morrison Work Phone: [facility] Work Phone: Start: 09-22-2022 End: 09-22-[address] Mata Morrison Work Phone: [facility] Work Phone: Start: 09-22-2022 End: 09-22-[address] Mata Morrison Work Phone: [facility]-Laboratory, Specimen Work Phone: Start: 09-21-2022 End: 09-21-[address] Mata Morrison Work Phone: [facility] Work Phone: Start: 01-01-2022 Refill Sona [...] DTaP,Tdap,Td Vaccine (2 - Td or Tdap) [facility] Start: 02-12-2024 Screening for malign ant neoplasm of cervix Cervical Cancer Screening [facility] Start: 11-20-2023 Covid-19 Vaccine () Covid-19 Vaccine () [facility] Start: 11-20-2023 Influenza vaccination Influenza Vacc ine (#1) [facility] Start: 12-02-2022 HPV TESTING HPV TESTING [facility] Start: 12-02-2022 PAP TESTING PAP TESTING [facility] Start: 11-19-2022 Covid-19 Vaccine () Covid-19 Vaccine () [facility] Start: 11-19-2022 Influenza vaccination Influenza Vacc ine (#1) [facility] Start: 03-21-2022 [facility] Start: 11-19-2021 Influenza vaccination INFLUENZA (#1) [facility] Start: 03-21-2021 [facility] Start: 06-25-2020 COVID-19 VACCINE (3 - Booster for Moderna series) COVID-19 VACCINE (3 - Booster for Moderna series) [facility] Start: 08-11-2016 End: 08-11-2016 Appointment Appointment [facility] Work Phone: Start: 08-11-2016 End: 08-11-2016 Appointment Appointment [facility] Work Phone: Start: 08-05-2016 End: 08-05-2016 Appointment Appointment [facility] Work Phone: Start: 2005 Hepatitis B Vaccine (1 of 3 - 19+ 3-dose series) Hepatitis B Vaccine (1 of 3 - 19+ 3-dose series) [facility] Start: 2005 Urine microalbumin profile DTAP,TDAP,TD (1 - Tdap) [facility] Start: 2004 Anxiety Screening Anxiety Screening [facility] Start: 2004 Depression Screening Depression Scre [facility] Start: 2004 HEPATITIS C SCREENING HEPATITIS C [facility] Start: 2004 Hepatitis C screening Hepatitis C [facility] Start: 2004 HIV SCREENING HIV SCREENING [facility] Start: 2004 HIV screening HIV Screening [facility] Start: 1986 HEPATITIS B (1 of 3 - 3-dose series) HEPATITIS B (1 of 3 - 3-dose series) [facility] Start: 1986 Hepatitis B Vaccine (1 of 3 - 3-dose series) Hepatitis B Vaccine (1 of 3 - 3-dose series) [facility] End: 04-06-2025 DBT Breast - bilateral screening ERNA SCREENING W ARNULFO Radiology Routine Encounter for screening mammogram for malignant neoplasm of breast 1 Occurrences starting 03/07/2024 until 04/06/2025 [facility] Work Phone: Comment on above: 1 Occurrences starti ng 03/07/2024 until 04/06/2025 DBT Breast - bilater al screening ERNA SCREENING W ARNULFO Radiology Routine Encounter for screening mammogram for malignant neoplasm of breast 03/07/2024 10:32 AM [place] End: 04-11-2025 MG Breast - left Diagnostic for implant ERNA DIAGNOSTIC LEFT Radiology Routine Abnormal mammogram 1 Occurrences starting 03/12/2024 until 04/11/2025 [facility] Comment on above: 1 Occurrences starti ng 03/12/2024 until 04/11/2025 PAP TEST PAP TEST Lab [facility] Encounter for gynecological examination (general) (routine) without abnormal findings Screening for cervical cancer Encounter for screening for human papillomavirus (HPV) 02/11/2023 10:03 AM [facility] Work Phone: End: 04-11-2025 US Breast - left limited US BREAST LTD LEFT Radiology Routine Abnormal mammogram 1 Occurrences starting 03/12/2024 until 04/11/2025 [facility] Work Phone: Comment on above: 1 Occurrences starti ng 03/12/2024 until 04/11/2025 [facility] Immunizations Immunization Date Immunization Notes Care Provider Omayra arriola 10-05-2021 tetanus toxoid, redu yolanda diphtheria toxoid, and acellular pertussis vaccine, adsorbed Jenae Buchanan ANIMAL KILLER.INTERIOR DESIGN COORDINATOR Work Phone: [facility] Work Phone: 01-26-2006 influenza virus vaccine, unspecified formulation Sona Zimmer MD Work Phone: [facility] Work Phone: Payers Date Payer Category Payer Self-pay [id number] 2009 [facility] BLUE ACCE SS PPO [id number] 2009 Unknown YULIANA MULLER SS PPO [id number] 2009-Present [phone] [address] [place] [address] PPO [id number] 2009 Unknown [id number] Unknown FORMERLY [facility] [id number] Unknown [id number] Unknown [id number] Unknown [id number] Unknown [id number] Unknown [id number] Unknown [id number] [id number] Social History Date Type Detail Facility Start: 08-25-2010 End: 04-15-2023 Tobacco smoking status NHIS Never smoked tobacco [facility] Work Phone: Start: 08-25-2010 End: 02-11-2023 Tobacco use and exposure Smokeless tobacco non-user [facility] Work Phone: Start: 01-31-2021 End: 03-07-2024 Alcohol intake Current drinker of alcohol (finding) [facility] Start: 01-31-2021 End: 02-11-2023 Alcohol intake [facility] Start: 07-13-2016 Alcohol Comment occ [facility] Start: 1985 Sex Assigned At Not on file [facility] Start: 09-21-2022 End: 12-27-2022 Tobacco smoking status NHIS Unknown if ever smoked [facility] Start: 1985 Sex Assigned At Female [facility] Start: 02-11-2023 End: 03-07-2024 Tobacco use panel [facility] National Score (1-100), lower number is lower risk 51 [facility] NEGATED: Highlighted rowStart: NINF History of tobacco use Passive smoker [facility] Work Phone: Functional Status Date Assessment Result Facility 02-21-2014 Are you deaf, or do you have serious difficulty hearing No 02/21/2014 9:51 AM Mima Flynn MA No [facility] 02-21-2014 Are you blind, or do you have serious difficulty seeing, even when wearing glasses No 02/21/2014 9:51 AM Mima Flynn MA No [facility] 02-21-2014 Do you have serious difficulty walking or climbing stairs No 02/21/2014 9:51 AM Mima Flynn MA [facility] 02-21-2014 Do you have difficul ty dressing or bathing No 02/21/2014 9:51 AM Mima Flynn MA No [facility] 02-21-2014 Because of a physica l, mental, or emotional condition, do you have difficulty doing errands alone such as visiting a physician's office or shopping No 02/21/2014 9:51 AM Mima Flynn MA [facility] Mental Status Date Assessment Result Facility 02-21-2014 Because of a physica l, mental, or emotional condition, do you have serious difficulty concentrating, remembering, or making decisions No 02/21/2014 9:51 AM Mima Flynn MA No [facility] Clinical Notes 01-30-2014 to 10-17-2024 Note Date & Type Note Facility 10-17-2024 Radiology Diagnostic study note [facility] Imaging Services [address] [place], [place] [address] Acute Abdomen Inc Chest MR#: [id number] Acct: [id number] Name: OZIEL THOMAS Rep #: [id number] : 1985 F 39 From: [facility] MD PCP: Dr. Roshni Jorgensen MD Status: REG CL I Study:Acute Abdomen Inc Chest Date of Exam: 10/16/24 Exam# [id number] Ordering Dr: Claire Jorgensen MD PROCEDURE: ACUTE ABDOMEN INC CHEST 10/16/2024 REASON FOR EXAM: RIGHT FLANK PAIN TECHNIQUE: ACUTE ABDOMEN INC CHEST, five view. COMPARISON: Community Life Director from the CT examination of 10/17/2020 RAD/Acute [...] of the spine are seen Reading Location: [place] [address] CC: Dr. Roshni Jorgensen MD ~ Baton Teacher: Signed [facility] 10-08-2024 Progress note [facility] 10-08-2024 Progress note Note Date/Time October 08, 2024 12:56pm [facility] [address], [address] [place] [address] OFFICE VISIT Date of Service: 10/08/24 MR#: [id number] Acct: [id number] Name: OZIEL THOMAS Rep #: [id number] : 1985 Provider: JOCY Carter Age/Sex: 39/F Location: [facility] Status: Signed Intake Vital Signs 01/29/24 10:00 [...] color/ character of stool; cloudy urine. No owoh-egy-cdiejra products taken to assist. No other associated [...] on 10/08/24 12 :50 Off Ur Spec [place] 1.005 Last Edit by Prachi Zamora MA [...] Cosigner Signature: Date (if applicable) CC: ~ [facility] Work Phone: [phone] Telephone encounter Note* Telephone Encounter - Deisy Washington RN - 05/23/2024 2:22 PM EST 3rd attempt. Patient has not read Notegraphy message. Left message for patient to call office or checkmychart message. Letter sent. Deisy Washington RN [facility]03-05-2025 Miscellaneous Notes* Telephone Encounter - Deisy Washington RN - 05/23/2024 2:22 PM EST 3rd attempt. Patient has not read MICMALIt message. Left message for patient to call [...] has beencompleted. Please have your patient call [phone] or ext. [phone] to schedule a breast imaging exam appointment for additional evaluation. Please ensure that you have placed either an electronic or hard copy order for the additional exam recommended from the screening mammogram report. We understand that this is an inconvenience to you and greatly appreciate your cooperation. If your patient has already scheduled an appointment, please disregard this letter. Sincerely, [facility] Imaging documented in this encounterK[facility]03-04-2025 Telephone encounter Note * Telephone Encounter - Deisy Washington RN - 05/22/2024 10:09 AM EST Left message for patient to call office or check mychart message. Deisy Washington RN [facility]03-03-2025 Telephone encounter Note* Telephone Encounter - Deisy [...] has beencompleted. Please have your patient call [phone] or ext. [phone] to schedule a breast imaging exam appointment for additional evaluation. Please ensure that you have placed either an electronic or hard copy order for the additional exam recommended from the screening mammogram report. We understand that this is an inconvenience to you and greatly appreciate your cooperation. If your patient has already scheduled an appointment, please disregard this letter. Sincerely, [facility] Breast Imaging [facility]12-18-2024 History of Present illness Narrative* Catie Hamm, [...] PATIENT PRESENTS WITH AN IMPLANTABLE OR ATTACHED WELDER EXPLOSION: No RADIOLOGY DEPARTMENT: Mammography PERIPHERAL IV DATA: Not applicable SIGNED BY: Trisha Rob March 07, 2024 9:47 AM documented in this encounterKet[facility] Health [facility]12-18-2024 NoteHNO ID: [id number] Author: CATIE HAMM Mammo Tech Service: ? Author Type: Sales Promotion Coordinator Type: Progress Notes Filed: 03/07/2024 09:47 Note [...] PATIENT PRESENTS WITH AN IMPLANTABLE OR ATTACHED WELDER EXPLOSION: No RADIOLOGY DEPARTMENT: Mammography PERIPHERAL IV DATA: Not applicable SIGNED BY: Trisha Rob March 07, 2024 9:47 [facility]12-18-2024 Instructions* Patient Instructions* Dolores Hodge APRN.INTERIOR DESIGN COORDINATOR - 03/07/2024 8:14 AM EST To schedule an appointment please either: Use the ShopReply Self Scheduling Ticket you may receive OR Call [phone], Option 2 to schedule. For information pertaining to genetics services at the [facility], you can visit us online [email or web address]. If [...] repeated (no maximum interval). documented in this encounterKet[facility]12-18-2024 NoteHNO ID: [id number] Author: DOLORES HODGE APRN.LAILA Service: ? Author Type: Nurse Practitioner Type: Progress Notes Filed: 03/07/2024 08:31 Note Text: Demand Planning Manager offered: Patient declines. Oziel is a 38 [...] L2 SAB0 IAB0 Ectopic0 Multiple0 Live Births2 Steward/Stewardess Wine History LMP: 02/08/2024 (Exact Date), Having periods Age at Menarche: Age at First : Age at Menopause: Steward/Stewardess Wine History Comments: Sexual Activity: Yes; Male Contraception: [...] discussed with the Patient or Patient's Authorized Note Specialist. As applicable, any other physician, advance practice provider, medical student, or other health professional student that will be observing or involved in the sensitive examination for educational or training purposes was discussed with the Patient or Authorized Note Specialist. The Patient or Authorized Note Specialist has agreed to proceed with the [...] bilateral labia majora, normal Bartholin's glands, urethra, Durbin's glands, + 3 mm raised mole to [...] of malignant neoplasm o (more content not included)...[facility]12-18-2024 History of Present illness Narrative* Dolores Hodge APRN.INTERIOR DESIGN COORDINATOR - 03/07/2024 7:59 AM EST Demand Planning Manager offered: Patient declines. Oziel is a 38 [...] L2 SAB0 IAB0 Ectopic0 Multiple0 Live Births2 Steward/Stewardess Wine History LMP: 02/08/2024 (Exact Date), Having periods Age at Menarche: Age at First : Age at Menopause: Steward/Stewardess Wine History Comments: Sexual Activity: Yes; Male Contraception: [...] discussed with the Patient or Patient's Authorized Note Specialist. As applicable, any other physician, advance practice provider, medical student, or other health professional student that will be observing or involved in the sensitive examination for educational or training purposes was discussed with the Patient or Authorized Note Specialist. The Patient or Authorized Note Specialist has agreed to proceed with the [...] bilateral labia majora, normal Bartholin's glands, urethra, Durbin's glands, + 3 mm raised mole to [...] notify and will obtain ultrasound. Dolores Hodge APRN.INTERIOR DESIGN COORDINATOR documented in this encounterK[facility]11-24-[facility]23 History of Present illness Narrative* Jenae Rosa APRN.CNP - 02/11/2023 9:40 AM EST Demand Planning Manager offered: Patient declines. Oziel is a 37 [...] L2 SAB0 IAB0 Ectopic0 Multiple0 Live Births2 Steward/Stewardess Wine History LMP: 01/19/2023 (Exact Date), Having periods Age at Menarche: Age at First : Age at Menopause: Steward/Stewardess Wine History Comments: Sexual Activity: Yes; Male Contraception: [...] external genitalia normal, normal Bartholin's glands, urethra, Durbin's glands, no vulvar lesions, no cervical lesions, [...] needed Jenae Rosa APRN.LAILA documented in this encounterKet[facility]10-14-2022 Miscellaneous Notes* Telephone Encounter - Claire Barillas [...] pharmacy. Claire Barillas RN documented in this encounterKet[facility]11-12-2014 History of Past illness Narrative* Problem Noted Date Resolved Date Nipple discharge 01/30/2014 07/13/2016 Excessive growth affec ting management of mother, antepartum 12/05/2007 12/29/2007 Supervision of normal first 04/11/2007 12/29/2007 documented as of this encounter (statuses as of 01/01/2022) [facility]11-12-2014 History of Past illness Narrative* Problem Noted Date Diagnosed Date Resolved Date Nipple discharge 01/30/2014 07/13/2016 Excessive growth affec ting management of mother, antepartum 12/05/2007 12/29/2007 Supervision of normal first 04/11/2007 12/29/2007 documented as of this encounter (statuses as of 02/11/2023) [facility] Diagnosis General counseling for prescription of oral contraceptives [facility] Diagnosis Onset Date Resolution Status Cystitis acute [facility] Work Phone: Evaluation note* Diagnosis Onset Date Resolution Status Cystitis acute UTI (urinary tract infection) acute [facility] Work Phone: Evaluation note* Diagnosis Encounter for gynecological examination (general) (routine) without abnormal findings- Primary General counseling for prescription of oral contraceptives Screening for cervical cancer Screening for malignant neoplasm of the cervix Encounter for screening for human papillomavirus (HPV) Special screening examination for human papillomavirus (HPV) documented in this encounter [facility] note* Diagnosis Encounter for gynecological examination (general) [...] neoplasm of breast documented in this encounter [facility] note* Diagnosis Encounter for screening mammogram for malignant neoplasm of breast Other screening mammogram documented in this encounter [facility] note* Diagnosis Abnormal mammogram- Primary Abnormal mammogram, unspecified documented in this encounter [facility] noteNo assessment information availableHar[facility] Work Phone: Reason for referral (narrative)* Diagnostic Procedure Only (Routine) - New Request Specialty Diagnoses / Procedures Referred By Sindy naidu Referred To Contact [facility] Diagnoses Abnormal mammogram Procedures ERNA DIAGNOSTIC LEFT DIAGNOSTIC MAMMOGRAPHY COMPUTER-AIDED DETCJ UNI Jenae Rosa APRN.CNP [address] [place] [address] [facility] [address] [place] [phone] Referral ID Status Reason Start Date Expiration Date Visits Requested Visits Authorized [id number] New Request Auto-Generat ed Referral 4 04/11/2025 1 1 * Diagnostic Procedure Only (Routine) - New Request Specialty Diagnoses / Procedures Referred By Sindy naidu Referred To Contact [facility] Diagnoses Abnormal mammogram Procedures US BREAST LTD LEFT US BREAST UNI REAL TIME WITH IMAGE LIMITED Jenae Rosa APRN.CNP [address] [place] [address] [facility] [address] [place] [address] Referral ID Status Reason Start Date Expiration Date Visits Requested Visits Authorized [id number] New Request Auto-Generat ed Referral 04/11/2025 1 1 [facility] (narrative)No reason for referral information availableHolly [facility] Work Phone: Reason for visit Narrative* Diagnostic Procedure Only (Routine) - Closed Specialty Diagnoses / Procedures Referred By Sindy naidu Referred To Contact [facility] Diagnoses Encounter for screening mammogram for malignant neoplasm of breast Procedures ERNA SCREENING W ARNULFO SCREENING DIGITAL BREAST TOMOSYNTHESIS BI SCREENING MAMMOGRAPHY BI 2-VIEW BREAST INC CAD Dolores Hodge APRN.CNP [address] [place] [address] [facility] [employer] [address] Referral ID Status Reason Start Date Expiration Date V isits Requested Visits Authorized [id number] Closed Auto-Generate d Referral 03/07/2024 04/06/2025 1 1 [facility] Chief Complaint and Reason for Visit Chief [...] CONSULT TO MEDICAL GENETICS - GENERAL OFFICE/OUTPATIENT [facility] 60 MINUTES MEDICAL GENETICS COUNSELING EACH 30 MINUTES Dolores Hodge APRN.CNP [address] [place] [address] [facility] [address] [place] [address] Referral ID Status Reason Start Date Expiration Date Visits Requested Visits Authorized [id number] Pending Review PCP Requested Referral Auto-Generate d Referral 03/07/2025 1 1 Specialty Diagnoses / Procedures Referred By Contac t Referred To Contact [facility] Diagnoses Encounter for screening mammogram for malignant neoplasm of breast Procedures ERNA SCREENING W ARNULFO SCREENING DIGITAL BREAST TOMOSYNTHESIS BI SCREENING MAMMOGRAPHY BI 2-VIEW BREAST INC CAD Fernandomanolo Dolores, ANIMAL KILLER.INTERIOR DESIGN COORDINATOR [address] [place] [address] [facility] [address] [place] [address] Referral ID Status Reason Start Date Expiration Date V isits Requested Visits Authorized [id number] Closed Auto-Generate d Referral 03/07/2024 04/06/2025 1 [...] or prosecute any alcohol or drug abuse patient.[facility] the event this information is protected by the Federal Confidentiality of Alcohol and Drug Abuse Patient Records regulations: The Federal rules restrict any use of the information to criminally investigate or prosecute any alcohol or drug abuse patient.[facility] the event this information is protected by the Federal Confidentiality of Alcohol and Drug Abuse Patient Records regulations: The Federal rules restrict any use of the information to criminally investigate or prosecute any alcohol or drug abuse patient.[facility] the event this information is protected by the Federal Confidentiality of Alcohol and Drug Abuse Patient Records regulations: The Federal rules restrict any use of the information to criminally investigate or prosecute any alcohol or drug abuse patient.[facility] the event this information is protected by the Federal Confidentiality of Alcohol and Drug Abuse Patient Records regulations: The Federal rules restrict any use of the information to criminally investigate or prosecute any alcohol or drug abuse patient.[facility] the event this information is protected by the Federal Confidentiality of Alcohol and Drug Abuse Patient Records regulations: The Federal rules restrict any use of the information to criminally investigate or prosecute any alcohol or drug abuse patient.[facility] the event this information is protected by the Federal Confidentiality of Alcohol and Drug Abuse Patient Records regulations: The Federal rules restrict any use of the information to criminally investigate or prosecute any alcohol or drug abuse patient.[facility] Reason for Visit (unrecogniz ed section and [...] section and content) DATE CREATED AUTHOR 05/25/2024 [facility] DATE CREATED AUTHOR AUTHOR'S BERNARD ATION 11/11/2024 [facility] FOR RECORDS PERTAINING TO PATIENTS WHO ARE [...] BE BASED ON THE PRIMARY CLINICAL RECORDS. [facility] [employer] [facility]. provides no warranty or guarantee of the accuracy or completeness of information in this document.
--- OUTSIDE RECORDS SUMMARY | 2025-03-19 21:59 | XMS RPT_ITS | CCD ---
Author Organization [facility] CliniSyut Care Team Providers Care Reducer Name Role Phone [place] SPORT PSYCHOLOGIST, Elzbieta K Unavailable Unavailable [place] SPORT PSYCHOLOGIST, Elzbieta K Unavailable Unavailable Unavailable Primary Care Provider UnavailDr. Mata Cruz Primary Care Provider Dr. Mata Morrison Referring Provider JOCY Henry Attending Provider JOCY Wilcox Attending Provider Unavailable Primary Care Provider Unavailabl e Unavailable Primary Care Provider UnavailDOLORES Zabala Referring Unavailable DOLORES HODGE Attending Unavailable Dr. Mata Morrison MD Primary Care Provider Dr. Mata Morrison MD Referring Provider Dat Wilcox Attending Provider [phone] Roshni Jorgensen MD Primary Care Provider Roshni Jorgensen MD Attending Provider [phone] Roshni Jorgensen MD Referring Provider Roshni Jorgensen Primary Care Unavailable Dat Wilcox Attending Unavailable Roshni Jorgensen Referring Unavailable Mata Morrison Referring Unavailable Mata Morrison Primary Care Unavailable Dat Wilcox Attending Unavailable Smith TEST CONSULTANT, Mata Toro Attending Unavailable Mata Morrison Referring Unavailable Mata Morrison Primary Care Unavailable Roshni Jorgensen Attending Unavailable Roshni Jorgensen Primary Care Unavailable Roshni Jorgensen Referring Unavailable Mata Morrison Primary Care Unavailable Dat Wilcox Attending Unavailable Smith TEST CONSULTANTMata Referring Unavailable Smith TEST CONSULTANT, Mata Toro Attending Unavailable Mata Morrison Primary [...] TABS 1 tab po daily NORGESTIMATE-ETH ESTRADIOL [id number] Elzbieta Ko [facility] Comment on above: Take 1 tablet by luz elena th once daily. hydrocortisone 10 mg/ml / neomycin 3.5 mg/ml / polymyxin b 59018 unt/ml otic suspension (6 sources) Aminoglycoside Antibacterial, Polymyxin-class Antibacterial, Corticosteroid Start: 11-07-2024 Neomycin-Polymyxin -Hc 3.5-10,000-1 mg/mL-unit/mL-% drops,suspension Active 4 NMA OTIC THREE TIMES A DAY 10 November 07, 2024 12:00am November 16, 2024 12:00am Start: 01-29-2024 End: 02-08-2024 Obpslcnq-Bshupguwt-Pl 3.5-10 ,000-1 mg/mL-unit/mL-% solution Discontinued 4 NMA [...] 09, 2020 6:40am BIOTIN MAXIMUM S TRENGTH 36362 MCG TABS BIOTIN [id number] Elzbieta K [place] SPORT PSYCHOLOGIST brompheniramine maleate 0.4 mg/ml / dextromethorphan hydrobromide 2 mg/ml / pseudoephedrine hydrochloride 6 mg/ml oral solution (1 source) alpha-Adrenergic Agonist, Uncompetitive X-chjvua-Q-aspartate Receptor Antagonist, Sigma-1 Agonist Start: 03-06-2019 End: 01-01-2022 take 5 mL by mouth every six hours as needed for cough and cough Yzxygmqbmxltsxv-Uivjfovga-HY (BROMFED DM) 2-30-10 mg/5 mL syrup Indications: Cough Take 5 mL by mouth four times daily as needed. 118 mL 0 03/06/2019 01/01/2022 Discontinued Comment on above: Take 5 mL by mouth f our times daily as needed. CALCIUM POLYCARBOPHIL TABS (2 sources) FIBER TABS 8 - 1 0 per day CALCIUM POLYCARBOPHIL TABS [id number] Elzbieta K [place] SPORT PSYCHOLOGIST Methylcellulose (1 source) End: 01-01-2022 METHYLCELLULOSE (FIBER THERAPY LAXATIVE ORAL) Take by mouth. 0 01/01/2022 Discontinued Comment on above: Take by mouth. MULTIPLE VITAMIN (1 source) DAILY MULTIPLE V ITAMINS TABS MULTIPLE VITAMIN [id number] Elzbieta Cardonas SPORT PSYCHOLOGIST MULTIPLE VITAMIN (1 source) DAILY MULTIPLE V ITAMINS TABS MULTIPLE VITAMIN 77739170935 Elzbieta Cardonas SPORT PSYCHOLOGIST Multivitamin preparation (9 sources) Start: 10-10-2019 End: 09-09-2020 take 1 tablet by mouth once daily Multivitamin Discontinued 1 TABLET PO DAILY October 10, 2019 12:00am September 09, 2020 6:40am multivitamin (MU LTIPLE VITAMIN ORAL) MULTIPLE VITAMIN DAILY MULTIPLE VITAMINS TABS MULTIPLE VITAMIN 46235894407 Elzbieta Ko CMA [facility] ([address]) Active multivitamin (MU LTIPLE VITAMIN ORAL) MULTIPLE VITAMIN DAILY MULTIPLE VITAMINS TABS MULTIPLE VITAMIN 62954462503 Elzbieta Ko CMA [facility] ([address]) 0 Active Comment on above: MULTIPLE VITAMIN JASON LY MULTIPLE VITAMINS TABS MULTIPLE VITAMIN 57019141805 Elzbieta Ko SPORT PSYCHOLOGIST [facility] ([address]) Multivitamin tablet (4 sources) Start: 020 End: [...] TABS 1 tab po daily NORGESTIMATE-ETH ESTRADIOL 22054387215 Elzbieta Ko CMA omeprazole 20 mg delayed [...] CAPS 1 po daily SACCHAROMYCES BOULARDII CAPS 79210142625 Elzbieta K [place] SPORT PSYCHOLOGIST take 1 capsule by mouth once jason ly PROBIOTIC CAPS 1 po daily SACCHAROMYCES BOULARDII CAPS 23111827059 Elzbieta K [place] SPORT PSYCHOLOGIST Problems Active Problems Problem Classification Problem Date [...] Reporton 0 11-07-2024 Urgent Care Visit Report [facility] [address] , [address] [place] [address] OFFICE VISIT Date of Service: 11/07/24 MR#: [id number] Acct: [id number] Name: OZIEL THOMAS Rep #: [id number] : 1985 Provider: JOCY Carter Age/Sex: 39/F Location: [facility] Status: Signed Intake Vital Signs 01/29/24 10:00 [...] 2.5 weeks and its not helping. [facility] Medical History UTI (urinary tract [...] exertion. No close contacts with similar complaints. Cvcv-lkr-fqiwstl NSAIDs and acetaminophen taken without relief. No [...] and movement (more content not included)... Normal [facility] Acute Abdomen Inc Cheston Acute Abdomen Inc Chest [facility] Imaging Services [address] [place] [address] Acute Abdomen Inc Chest MR#: [id number] Acct: [id number] Name: OZIEL THOMAS Rep #: [id number] : 1985 F 39 From: [facility] Mendes PCP: Dr. Roshni Jorgensen MD Status: REG CLI Study: Acute Abdomen Inc Chest Date of Exam: 10/16/24 Exam# [id number] Ordering Dr: Roshni Jorgensen MD PROCEDURE: ACUTE ABDOMEN INC CHEST 10/16/2024 REASON FOR EXAM: RIGHT FLANK PAIN TECHNIQUE: ACUTE ABDOMEN INC CHEST, five view. COMPARISON: Woods Warden from the CT examination of 10/17/2020 RAD/Acute [...] of the spine are seen Reading Location: [place] [address] CC: Dr. Roshni Jorgensen MD Semi Driver: Signed Normal [facility] Urine Cultureon 10-10-2024 URC Escherichia coli [place] Count >100,000 Escherichia coli: REACTION Ampicillin Islt [...] SMX Islt TAJ <=20 S Normal [facility] Comment on above: Performed By: #### M 100.2202 #### [facility] Laboratory [address] [place], [place], [address] Laboratory - Chemistry and C hemistry - challengeOrdered By: Dat Guo on 10-08-2024 Bilirubin Ql (U) Negative [facility] Glucose Ql (U) Negative [facility] Ketones Ql (U) Negative [facility] pH (U) 6.5 [pH] [facility] Specific gravity (U) [Rel density] 1.005 [facility] Urobilinogen (U) [Mass/Vol] 0.8888346 mg/dL [facility] Laboratory - Hematology and Cell countsOrdered By: Dat Guo on 10-08-2024 Hemoglobin Ql (U) Moderate [facility] Laboratory - Specimen inform ationOrdered By: Dat Guo on 10-08-2024 Clarity (U) Cloudy [facility] Color (U) STRAW [facility] Laboratory - UrinalysisOrder ed By: Dat Guo on 10-08-2024 Nitrite Ql (U) Negative [facility] Protein Ql (U) Trace [facility] No Panel InformationOrdered By: Dat Guo on 10-08-2024 Urine Leukocytes Positive [facility] Urine Non-Hemolyzed Blood Large [facility] Urgent Care Visit Reporton 0 10-08-2024 Urgent Care Visit Report [facility] [address] , [address] [place], [place] [address] OFFICE VISIT Date of Service: 10/08/24 MR#: [id number] Acct: [id number] Name: OZIEL THOMAS Rep #: [id number] : 1985 Provider: JOCY Carter Age/Sex: 39/F Location: [facility] Status: Signed Intake Vital Signs 01/29/24 10:00 [...] color/ character of stool; cloudy urine. No xqgg-xnf-dugyfov products taken to assist. No other associated [...] MA on 10/08/24 12:50 Off Ur Spec [place] 1.005 Last Edit by Prachi Zamora MA [...] MA (more content not included)... Normal [facility] Urine cultureOrdered By: Familia Guo on 10-08-2024 Bacteria identified Cx Nom (U) Escherichia coli Abnormal [facility] CNPNon 05-21-2024 LAILAN Telephone (OBGYWM) ---- OZIEL THOMAS ([id number]) 1985 F Date Time Provider Department 05/21/24 [...] been completed. Please have your patient call [phone] or ext. [phone] to schedule a breast imaging exam appointment for additional evaluation. Please ensure that you have placed either an electronic or hard copy order for the additional exam recommended from the screening mammogram report. We understand that this is an inconvenience to you and greatly appreciate your cooperation. If your patient has already scheduled an appointment, please disregard this letter. Sincerely, [facility] Deisy Washington RN 05/22/2024 10:10 AM Signed Left message for patient to call office or check [employer] message. FAHAD Escobar Trisha, RN 05/23/2024 2:27 PM Signed 3rd attempt. Patient has not read TicketFirehart message. Left message for patient to call office or check mychart message. Letter sent. Deisy Washington RN Allergies As of Date: 05/21/2024 (No Known Allergies) Date Reviewed: 03/07/2024 Reviewed by: Dolores Hodge APRN.THERAPEUTIC RADIOLOGIST - Fully Assessed Reason for Visit: Radiology Mammogram [1485] Prescriptions as of 05/23/2024 - norgestimate 0.25 mg-ethinyl estradiol 35 mcg (SPRINTEC) 0.25-35 mg-mcg per tablet Take 1 tablet by mouth once daily. - multivitamin (MULTIPLE VITAMIN ORAL) MULTIPLE VITAMIN DAILY MULTIPLE VITAMINS TABS MULTIPLE VITAMIN [id number] Elzbieta K [place] SPORT PSYCHOLOGIST [facility] ([address]) - L.ACID/L.CASEI/B.BI F/B.AFIA/FOS (PROBIOTIC BLEND ORAL) Take by mouth. Problem List As Of Date 05/21/2024 Noted Resolved SUPERVIS NORMAL 1ST PREG [Z34.00] 04/11/2007 12/29/2007 EXCESS FET GRTH-ANTEPART [O36.60X0] 12/05/2007 12/29/2007 Hemorrhoids, Internal [K64.8] 09/25/2009 Nipple discharge [N64.52] 01/30/2014 07/13/2016 Family history of malignant neoplasm of breast *03/07/2024 Letter Text Encounter Status:Closed by DOLORES HODGE on 05/23/24 [facility] 03-12-2024 KENJI Telephone (OBGYWM) ---- OZIEL THOMAS ([id number]) 1985 F Date Time Provider Department 03/12/24 JENAE ROSA OBJEANCARLOSWMarybel During your visit today, we recorded the following information about you: Allergies As of Date: 03/12/2024 (No Known Allergies) Date Reviewed: 03/07/2024 Reviewed by: Dolores Hodge APRN.THERAPEUTIC RADIOLOGIST - Fully Assessed Reason for Visit: Orders [681] Primary Visit Diagnosis:Abnormal mammogram [R92.8] Order(s):US BREAST LTD LEFT [5985741] Order #: [id number] FUTURE ERNA DIAGNOSTIC LEFT [[id number]] Order #: [id number] FUTURE Prescriptions as of 03/12/2024 - norgestimate 0.25 mg-ethinyl estradiol 35 mcg (SPRINTEC) 0.25-35 mg-mcg per tablet Take 1 tablet by mouth once daily. - multivitamin (MULTIPLE VITAMIN ORAL) MULTIPLE VITAMIN DAILY MULTIPLE VITAMINS TABS MULTIPLE VITAMIN [id number] Elzbieta Ko SPORT PSYCHOLOGIST [facility] ([address]) - L.ACID/L.CASEI/B.BI F/B.AFIA/FOS (PROBIOTIC BLEND ORAL) Take by mouth. Problem List As Of Date 03/12/2024 Noted Resolved SUPERVIS NORMAL 1ST PREG [Z34.00] 04/11/2007 12/29/2007 EXCESS FET GRTH-ANTEPART [O36.60X0] 12/05/2007 12/29/2007 Hemorrhoids, Internal [K64.8] 09/25/2009 Nipple discharge [N64.52] 01/30/2014 07/13/2016 Family history of malignant neoplasm of breast *03/07/2024 Encounter Status:Closed by JENAE ROSA on 03/12/24 Normal [facility] CNOVon 03-07-2024 CNOV Office Visit (OBGYWM) ---- OZIEL THOMAS ([id number]) 1985 F Date Time Provider Department 03/07/24 8:15 AM DOLORES HODGE During your visit today, we recorded the following information about you: Blood pressure Weight Height Last Period 110/64 78.5 kg 1.606 m 02/08/24 Dolores Hodge APRN.CNP 03/07/2024 8:31 AM Signed Nurse Transition offered: Patient declines. Oziel is a 38 [...] L2 SAB0 IAB0 Ectopic0 Multiple0 Live Births2 Operational Meteorologist History LMP: 02/08/2024 (Exact Date), Having periods Age at Menarche: Age at First : Age at Menopause: Operational Meteorologist History Comments: Sexual Activity: Yes; Male Contraception: [...] discussed with the Patient or Patient's Authorized Petrophysicist. As applicable, any other physician, advance practice provider, medical student, or other health professional student that will be observing or involved in the sensitive examination for educational or training purposes was discussed with the Patient or Authorized Petrophysicist. The Patient or Authorized Petrophysicist has agreed to proceed with the sensitive [...] bilateral labia majora, normal Bartholin's glands, urethra, [place]'s glands, + 3 mm raised mole to [...] - ICD9: (more content not included)... Normal [facility] SCREENING W TOMOon 03-07 ERNA SCREENING W ARNULFO * * *Final Report* * * DATE OF EXAM: Mar 07 2024 10:32AM WRW 0582 - ERNA SCREENING W ARNULFO / PROCEDURE REASON: Encounter for screening mammogram for malignant neoplasm of breast * * * * Physician Interpretation * * * * RESULT: [place] [address] [place] [id number] #[id number] - [facility] SCREENING W ARNULFO HISTORY: Patient is 38 [...] Erica Adrian M.D. Electronically signed on: 03/10/2024 Semi Driver: RENY Transcribe Date/Time: Mar 07 2024 9:48A Dictated by: ERICA ADRIAN MD This examination was interpreted and the report reviewed and electronically signed by: ERICA ADRIAN MD on Mar 10 2024 7:24AM EST [id number] Normal [facility] Urine Cultureon 02-01-2024 URC Staphylococcus saprophyticus [place] Count 25,000-50,000 Staphylococcus saprophyticus: REACTION cefOXitin Susc Islt Clindamycin.induced Susc Islt NEG Gentamicin Islt TAJ <=0.5 S Nitrofurantoin Islt TAJ <=16 S Oxacillin Susc Islt S Tetracycline Islt TAJ <=1 S Vancomycin Islt TAJ <=0.5 S Normal [facility] Comment on above: Performed By: #### M 100.3117 #### [facility] Laboratory [address] [place], [address] Urgent Care Visit Reporton 1 03-30-2023 Urgent Care Visit Report [facility] [address], [address] [place], [place] [address] OFFICE VISIT Date of Service: 01/29/24 MR#: [id number] Acct: [id number] Name: OZIEL THOMAS Rep #: [id number] : 1985 Provider: CARLYN garzon Age/Sex: 38/F Location: [facility] Status: Signed Intake Vital Signs 12/27/22 07:40 [...] Chief Complaint: dysuria and lt ear concerns State Epidemiologist Required: No Accompanied by: Self Is patient [...] relate (more content not included)... Normal [facility] Basophil percentageOrdered B y: Dat Guo on 12-27-2022 Basophil percentage 25-50 SEEN /hpf 0-5 [facility] Bilirubin Test strip Ql (U)O rdered By: Dat Guo on 12-27-2022 Bilirubin Ql (U) Negative Negative [facility] Culture, urineOrdered By: St barbie Guo on 12-27-2022 Bacteria identified Cx Nom (U) Positive [facility] Ketones Test strip Ql (U)Ord ered By: Dat Guo on 12-27-2022 Ketones Ql (U) 5 mg/dl Negative [facility] Laboratory - Chemistry and C hemistry - challengeon 12-27-2022 Bilirubin Ql (U) Negative [facility] Glucose Ql (U) Negative [facility] Ketones Ql (U) Trace (5) [facility] Specific gravity (U) [Rel density] 1.030 [facility] Urobilinogen (U) [Mass/Vol] Negative [facility] Laboratory - Hematology and Cell countson 12-27-2022 Hemoglobin Ql (U) Large [facility] Laboratory - Specimen inform ationon 12-27-2022 Clarity (U) Clear [facility] Color (U) Yellow [facility] Laboratory - Urinalysison Nitrite Ql (U) Negative [facility] Protein Ql (U) Negative [facility] Mucus LM Ql (Urine sed)Order ed By: Dat Guo on 12-27-2022 Mucus Ql (Urine sed) 1+ /hpf [facility] Nitrite Test strip Ql (U)Ord ered By: aDt Guo on 12-27-2022 Nitrite Ql (U) Negative Negative [facility] No Panel Informationon 12-27 Urine Leukocytes Positive [facility] Urine Non-Hemolyzed Blood [facility] Protein Test strip Ql (U)Ord ered By: Dat Guo on 12-27-2022 Protein Ql (U) 30 mg/dl Negative [facility] Squamous epithelial cells de tection in urine sediment by light microscopyOrdered By: Dat Guo on 12-27-2022 Epithelial cells.squamous LM Ql (Urine sed) 0-5 SEEN /hpf 5-10 [facility] Urine blood detectionOrdered By: Dat Guo on 12-27-2022 RBC Ql (U) 150 /ul Negative [facility] RBC Ql (U) 5-10 SEEN /hpf 0-5 [facility] Urine clarityOrdered By: Familia Guo on 12-27-2022 Clarity (U) Clear Clear [facility] Urine color determinationOrd ered By: Dat Guo on 12-27-2022 Color (U) Yellow Yellow [facility] Urine glucose detectionOrder ed By: Dat Guo on 12-27-2022 Glucose Ql (U) Normal mg/dl Normal [facility] Urine leukocyte esterase det ection by dipstickOrdered By: Dat Guo on 12-27-2022 Leukocyte esterase Test strip Ql (U) 100 /ul Negative [facility] Urine pHOrdered By: Dat lundberg on 12-27-2022 pH (U) 5.0 [pH] 5.0 - 8.0 [facility] Urine sediment bacteria coun t by microscopy (number/high power field)Ordered By: Dat Guo on 12-27-2022 Bacteria LM.HPF (Urine sed) [#/Area] 1 /[HPF] None Seen [facility] Urine specific gravity measu rementOrdered By: Dat Guo on 12-27-2022 Specific gravity (U) [Rel density] 1.020 1.002-1.030 [facility] Urobilinogen Auto test strip Ql (U)Ordered By: Dat Guo on 12-27-2022 Urobilinogen Ql (U) Normal mg/dl Normal [facility] Amorphous sediment detection in urine sediment by light microscopyOrdered By: Lawrence Yeager on 09-22-2022 Amorphous sediment LM Ql (Urine sed) 1+ URATE [facility] Basophil percentageOrdered B y: Lawrence Yeager on 09-22-2022 Basophil percentage 25-50 SEEN /hpf 0-5 [facility] Bilirubin Test strip Ql (U)O rdered By: Lawrence Yeager on 09-22-2022 Bilirubin Ql (U) Negative Negative [facility] Culture, urineOrdered By: Florentino Yeager on 09-22-2022 Bacteria identified Cx Nom (U) Presumptive E. coli [facility] Ketones Test strip Ql (U)Ord ered By: Lawrence Yeager on 09-22-2022 Ketones Ql (U) Negative Negative [facility] Mucus LM Ql (Urine sed)Order ed By: Lawrence Yeager on 09-22-2022 Mucus Ql (Urine sed) 0 SEEN /hpf [facility] Nitrite Test strip Ql (U)Ord ered By: Lawrence Yeager on 09-22-2022 Nitrite Ql (U) Negative Negative [facility] Protein Test strip Ql (U)Ord ered By: Lawrence Yeager on 09-22-2022 Protein Ql (U) 30 mg/dl Negative [facility] Squamous epithelial cells de tection in urine sediment by light microscopyOrdered By: Lawrence Yeager on 09-22-2022 Epithelial cells.squamous LM Ql (Urine sed) 0-5 SEEN /hpf 5-10 [facility] Urine blood detectionOrdered By: Lawrence Yeager on 09-22-2022 RBC Ql (U) 250 /ul Negative [facility] RBC Ql (U) 10-25 SEEN /hpf 0-5 [facility] Urine clarityOrdered By: Ajay Yeager on 09-22-2022 Clarity (U) Sl. Cloudy Clear [facility] Urine color determinationOrd ered By: Lawrence Yeager on 09-22-2022 Color (U) Yellow Yellow [facility] Urine glucose detectionOrder ed By: Lawrence Yeager on 09-22-2022 Glucose Ql (U) Normal mg/dl Normal [facility] Urine leukocyte esterase det ection by dipstickOrdered By: Lawrence Yeager on 09-22-2022 Leukocyte esterase Test strip Ql (U) 500 /ul Negative [facility] Urine pHOrdered By: Lawrence pak on 09-22-2022 pH (U) 6.5 [pH] 5.0 - 8.0 [facility] Urine sediment bacteria coun t by microscopy (number/high power field)Ordered By: Lawrence Yeager on 09-22-2022 Bacteria LM.HPF (Urine sed) [#/Area] 0 /[HPF] None Seen [facility] Urine specific gravity measu rementOrdered By: Lawrence Yeager on 09-22-2022 Specific gravity (U) [Rel density] 1.010 1.002-1.030 [facility] Urobilinogen Auto test strip Ql (U)Ordered By: Lawrence Yeager on 09-22-2022 Urobilinogen Ql (U) Normal mg/dl Normal [facility] Laboratory - Chemistry and C hemistry - challengeon 09-21-2022 Bilirubin Ql (U) Negative [facility] Glucose Ql (U) Negative [facility] HCG ( test) Ql (U) Negative [facility] Ketones Ql (U) Negative [facility] pH (U) 6.5 [pH] [facility] Specific gravity (U) [Rel density] 1.005 [facility] Urobilinogen (U) [Mass/Vol] 0.5046752 mg/dL [facility] Laboratory - Hematology and Cell countson 09-21-2022 Hemoglobin Ql (U) Hemolyzed [facility] Laboratory - Specimen inform ationon 09-21-2022 Clarity (U) Clear [facility] Color (U) YELLOW [facility] Laboratory - Urinalysison Nitrite Ql (U) Negative [facility] Protein Ql (U) Trace [facility] No Panel Informationon 09-21 Urine Leukocytes Positive [facility] Urine Non-Hemolyzed Blood Large [facility] Clinical Lists Update: 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 Mata Morrison MD Work Phone: [facility] 11-07-2024 12:59-0400 Diastolic blood pressure 80 mm[Hg] Dr. Mata Morrison MD Work Phone: [facility] 11-07-2024 12:59-0400 Heart rate 73 /min Dr. Mata Morrison MD Work Phone: [facility] 11-07-2024 12:59-0400 Respiratory rate 16 /min Dr. Mata Morrison MD Work Phone: [facility] 11-07-2024 12:59-0400 SaO2% (BldA) [Mass fraction] 99 % Dr. Mata Morrison MD Work Phone: [facility] 11-07-2024 12:59-0400 Systolic blood pressure 122 mm[Hg] Dr. Mata Morrison MD Work Phone: [facility] 10-08-2024 12:43-0400 Body temperature 98.4 [degF] Dr. Mata Morrison MD Work Phone: [facility] 10-08-2024 12:43-0400 Body weight 82.[address] Mata Morrison MD Work Phone: [facility] 10-08-2024 12:43-0400 Diastolic blood pressure 60 mm[Hg] Dr. Mata Morrison MD Work Phone: [facility] 10-08-2024 12:43-0400 Heart rate 68 /min Dr. Mata Morrison MD Work Phone: [facility] 10-08-2024 12:43-0400 Respiratory rate 14 /min Dr. Mata Morrison MD Work Phone: [facility] 10-08-2024 12:43-0400 SaO2% (BldA) [Mass fraction] 99 % Dr. Mata Morrison MD Work Phone: [facility] 10-08-2024 12:43-0400 Systolic blood pressure 120 mm[Hg] Dr. Mata Morrison MD Work Phone: [facility] 03-07-2024 08:03-0500 Body height 160.6 cm Dolores Haury CHANNEL PROCESS SUPERVISOR.THERAPEUTIC RADIOLOGIST Work Phone: [facility] 03-07-2024 08:03-0500 Body mass index (BMI) [Ratio] 30.44 kg/m2 Dolores Haury CHANNEL PROCESS SUPERVISOR.THERAPEUTIC RADIOLOGIST Work Phone: [facility] 03-07-2024 08:03-0500 Body weight 78.47 kg Dolores Haury CHANNEL PROCESS SUPERVISOR.THERAPEUTIC RADIOLOGIST Work Phone: [facility] 03-07-2024 08:03-0500 Diastolic blood pressure 64 mm[Hg] Dolores Haury CHANNEL PROCESS SUPERVISOR.THERAPEUTIC RADIOLOGIST Work Phone: [facility] 03-07-2024 08:03-0500 Systolic blood pressure 110 mm[Hg] Dolores Haury CHANNEL PROCESS SUPERVISOR.THERAPEUTIC RADIOLOGIST Work Phone: [facility] 02-11-2023 09:40-0500 Body height 160 cm Jenae Mapleton CHANNEL PROCESS SUPERVISOR.THERAPEUTIC RADIOLOGIST Work Phone: [facility] 02-11-2023 09:40-0500 Body weight 74.66 kg Jenae Moe CHANNEL PROCESS SUPERVISOR.THERAPEUTIC RADIOLOGIST Work Phone: [facility] 02-11-2023 09:40-0500 Diastolic blood pressure 60 mm[Hg] Jenae Moe CHANNEL PROCESS SUPERVISOR.THERAPEUTIC RADIOLOGIST Work Phone: [facility] 02-11-2023 09:40-0500 Systolic blood pressure 90 mm[Hg] Jenae Rosa APRN.CNP Work Phone: [facility] 12-27-2022 07:40-0400 Body height 160.[address] Mata Morrison Work Phone: [facility] 12-27-2022 07:40-0400 Body mass index (BMI) [Ratio] 30.1 kg/m2 Dr. Mata Morrison Work Phone: [facility] 12-27-2022 07:40-0400 Body temperature 98.2 [degF] Dr. Mata Morrison Work Phone: [facility] 12-27-2022 07:40-0400 Body weight 77.[address] Mata Morrison Work Phone: [facility] 12-27-2022 07:40-0400 Diastolic blood pressure 84 mm[Hg] Dr. Mata Morrison Work Phone: [facility] 12-27-2022 07:40-0400 Heart rate 63 /min Dr. Mata Morrison Work Phone: [facility] 12-27-2022 07:40-0400 Respiratory rate 17 /min Dr. Mata Morrison Work Phone: [facility] 12-27-2022 07:40-0400 SaO2% (BldA) [Mass fraction] 98 % Dr. Mata Morrison Work Phone: [facility] 12-27-2022 07:40-0400 Systolic blood pressure 120 mm[Hg] Dr. Mata Morrison Work Phone: [facility] 09-21-2022 12:28-0400 Body height 160.[address] Mata Morrison Work Phone: [facility] 09-21-2022 12:28-0400 Body mass index (BMI) [Ratio] 35.4 kg/m2 Dr. Mata Morrison Work Phone: [facility] 09-21-2022 12:28-0400 Body temperature 97.4 [degF] Dr. Mata Morrison Work Phone: [facility] 09-21-2022 12:28-0400 Body weight 90.[address] Mata Morrison Work Phone: [facility] 09-21-2022 12:28-0400 Diastolic blood pressure 80 mm[Hg] Dr. Mata Morrison Work Phone: [facility] 09-21-2022 12:28-0400 Heart rate 86 /min Dr. Mata Morrison Work Phone: [facility] 09-21-2022 12:28-0400 Respiratory rate 16 /min Dr. Mata Morrison Work Phone: [facility] 09-21-2022 12:28-0400 SaO2% (BldA) [Mass fraction] 99 % Dr. Mata Morrison Work Phone: [facility] 09-21-2022 12:28-0400 Systolic blood pressure 112 mm[Hg] Dr. Mata Morrison Work Phone: [facility] Encounters Encounter Date Encounter Type Care Provider Facility Start: 11-07-2024 End: 11-07-2024 Patient encounter procedure Dat Guo [place] -[facility] Work Phone: Start: 11-07-2024 End: 11-07-[address] Mata Morrison MD Work Phone: [facility] Start: 10-16-2024 End: 10-16-[address] Mata Morrison MD Work Phone: -[facility] [place] Start: 10-16-2024 End: 10-16-[address] Roshni Jorgensen MD -[facility] [place] Work Phone: Start: 10-16-2024 End: 10-16-2024 ambulatory Roshni Jorgensen Facility:[facility] Start: 10-08-2024 End: 10-08-[address] Mata Morrison MD Work Phone: -Laboratory [facility] Start: 10-08-2024 End: 10-08-2024 Patient encounter procedure Dat SANDRA -Laboratory Specimen Work Phone: Start: 10-08-2024 End: 10-08-2024 Patient encounter procedure Dat Guo [place] [facility] Work Phone: Start: 10-08-2024 End: 10-08-[address] Mata Morrison MD Work Phone: [facility] Start: 10-08-2024 End: 10-08-2024 ambulatory Mata Morrison Facility:[facility] Start: 05-21-2024 End: 05-23-2024 Telephone encounter Dolores Hodge APRN.CNP Work Phone: OB/Gynecology Comment on above: Radiology Mammogram Start: 03-15-2024 End: 03-15-2024 ambulatory Dolores Hodge APRN.THERAPEUTIC RADIOLOGIST Work Phone: OB/Gynecology Comment on above: Breast Imaging Start: 03-15-2024 End: 03-15-2024 E-mail encounter from caregiver Dolores Hodge APRN.CNP Work Phone: OB/Gynecology Start: 03-12-2024 End: 03-12-2024 Telephone encounter Jenae Rosa APRN.THERAPEUTIC RADIOLOGIST Work Phone: OB/Gynecology Comment on above: Orders Start: 03-07-2024 End: 03-07-2024 ambulatory DOLORES HODGE Facility:[facility] Start: 03-07-2024 End: 03-07-2024 Subsequent hospital visit by physician Screen Mammo [facility] Mammogram Comment on above: Encounter for screen ing mammogram for malignant neoplasm of breast [Z12.31] Start: 03-07-2024 End: 03-07-2024 Patient encounter procedure Dolores Hodge APRN.THERAPEUTIC RADIOLOGIST Work Phone: OB/Gynecology Comment on above: Encounter [...] Dolores Hodge APRN.CNP Work Phone: [facility] Start: 03-07-2024 End: 03-07-2024 ambulatory DOLORES HODGE Facility:[facility] Start: 03-07-2024 Encounter for gynecological examination (general) (routine) without abnormal findings DOLORES HODGE [facility] Start: 01-29-2024 End: 01-30-2024 ambulatory Mata Mtz NP Facility:[facility] Start: 02-11-2023 End: 02-11-2023 Patient encounter procedure Jenae Rosa APRN.CNP Work Phone: OB/Gynecology Comment on above: Encounter for gyneco logical examination (general) (routine) without abnormal findings (Primary Dx); General counseling for prescription of oral contraceptives; Screening for cervical cancer; Encounter for screening for human papillomavirus (HPV) Start: 02-11-2023 End: 02-11-2023 Patient encounter status Jenae Rosa APRN.CNP Work Phone: [facility] Work Phone: Start: 12-27-2022 End: 12-27-[address] Mata Morrison Work Phone: [facility] Work Phone: Start: 12-27-2022 End: 12-27-[address] Mata Morrison Work Phone: [facility]-Laboratory, Specimen Work Phone: Start: 12-27-2022 End: 12-27-[address] Mata Morrison Work Phone: [facility] Work Phone: Start: 09-22-2022 End: 09-22-[address] Mata Morrison Work Phone: [facility] Work Phone: Start: 09-22-2022 End: 09-22-[address] Mata Morrison Work Phone: [facility]-Laboratory, Specimen Work Phone: Start: 09-21-2022 End: 09-21-[address] Mata Morrison Work Phone: [facility] Work Phone: Start: 01-01-2022 Refill [...] (2 - Td or Tdap) [facility] Start: 02-12-2024 Screening for malign ant neoplasm of cervix Cervical Cancer Screening [facility] Start: 11-20-2023 Covid-19 Vaccine () Covid-19 Vaccine () [facility] Start: 11-20-2023 Influenza vaccination Influenza Vacc ine (#1) [facility] Start: 12-02-2022 HPV TESTING HPV TESTING [facility] Start: 12-02-2022 PAP TESTING PAP TESTING [facility] Start: 11-19-2022 Covid-19 Vaccine () Covid-19 Vaccine () [facility] Start: 11-19-2022 Influenza vaccination Influenza Vacc ine (#1) [facility] Start: 03-21-2022 [facility] Start: 11-19-2021 Influenza vaccination INFLUENZA (#1) [facility] Start: 03-21-2021 [facility] Start: 06-25-2020 COVID-19 VACCINE (3 - Booster for Moderna series) COVID-19 VACCINE (3 - Booster for Moderna series) [facility] Start: 08-11-2016 End: 08-11-2016 Appointment Appointment [facility] Work Phone: Start: 08-11-2016 End: 08-11-2016 Appointment Appointment [facility] Work Phone: Start: 08-05-2016 End: 08-05-2016 Appointment Appointment [facility] Work Phone: Start: 2005 Hepatitis B Vaccine (1 of 3 - 19+ 3-dose series) Hepatitis B Vaccine (1 of 3 - 19+ 3-dose series) [facility] Start: 2005 Urine microalbumin profile DTAP,TDAP,TD (1 - Tdap) [facility] Start: 2004 Anxiety Screening Anxiety Screening [facility] Start: 2004 Depression Screening Depression Scre [facility] Start: 2004 HEPATITIS C SCREENING HEPATITIS C [facility] Start: 2004 Hepatitis C screening Hepatitis C [facility] Start: 2004 HIV SCREENING HIV SCREENING [facility] Start: 2004 HIV screening HIV Screening [facility] Start: 1986 HEPATITIS B (1 of 3 - 3-dose series) HEPATITIS B (1 of 3 - 3-dose series) [facility] Start: 1986 Hepatitis B Vaccine (1 of 3 - 3-dose series) Hepatitis B Vaccine (1 of 3 - 3-dose series) [facility] End: 04-06-2025 DBT Breast - bilateral screening ERNA SCREENING [facility] Radiology Routine Encounter for screening mammogram for malignant neoplasm of breast 1 Occurrences starting 03/07/2024 until 04/06/2025 [facility] Work Phone: Comment on above: 1 Occurrences starti ng 03/07/2024 until 04/06/2025 DBT Breast - bilater al screening ERNA SCREENING [facility] Radiology Routine Encounter for screening mammogram for malignant neoplasm of breast 03/07/2024 10:32 AM [facility] End: 04-11-2025 MG Breast - left Diagnostic for implant ERNA DIAGNOSTIC LEFT Radiology Routine Abnormal mammogram 1 Occurrences starting 03/12/2024 until 04/11/2025 [facility] Comment on above: 1 Occurrences starti ng 03/12/2024 until 04/11/2025 PAP TEST PAP TEST Lab [facility] Encounter for gynecological examination (general) (routine) without abnormal findings Screening for cervical cancer Encounter for screening for human papillomavirus (HPV) 02/11/2023 10:03 AM [facility] Work Phone: End: 04-11-2025 US Breast - left limited US BREAST LTD LEFT Radiology Routine Abnormal mammogram 1 Occurrences starting 03/12/2024 until 04/11/2025 [facility] Work Phone: Comment on above: 1 Occurrences starti ng 03/12/2024 until 04/11/[address] [facility] Immunizations Immunization Date Immunization Notes Care Provider Omayra arriola 10-05-2021 tetanus toxoid, redu yolanda diphtheria toxoid, and acellular pertussis vaccine, adsorbed Jenae Mapleton CHANNEL PROCESS SUPERVISOR.THERAPEUTIC RADIOLOGIST Work Phone: [facility] Work Phone: 01-26-2006 influenza virus vaccine, unspecified formulation Sona Zimmer MD Work Phone: [facility] Work Phone: Payers Date Payer Category Payer Self-pay [id number] 2009 [facility] BLUE ACCE SS PPO [id number] 2009 Unknown YULIANA MULLER SS PPO [id number] 2009-Present [phone] [address] [place] [address] PPO [id number] 2009 Unknown [id number] Unknown [facility] [id number] Unknown [id number] Unknown [id number] Unknown [id number] Unknown [id number] Unknown [id number] Unknown [id number] Social History Date Type Detail Facility Start: 08-25-2010 End: 04-15-2023 Tobacco smoking status NHIS Never smoked tobacco [facility] Work Phone: Start: 08-25-2010 End: 02-11-2023 Tobacco use and exposure Smokeless tobacco non-user [facility] Work Phone: Start: 01-31-2021 End: 03-07-2024 Alcohol intake Current drinker of alcohol (finding) [facility] Start: 01-31-2021 End: 02-11-2023 Alcohol intake [facility] Start: 07-13-2016 [facility] Start: 1985 Sex Assigned At Not on file [facility] Start: 09-21-2022 End: 12-27-2022 Tobacco smoking status NHIS Unknown if ever smoked [facility] Start: 1985 Sex Assigned At Female [facility] Start: 02-11-2023 End: 03-07-2024 Tobacco use panel [facility] National Score (1-100), lower number is lower risk 51 [facility] NEGATED: Highlighted rowStart: NINF History of tobacco use Passive smoker [facility] Work Phone: Functional Status Date Assessment Result Facility 02-21-2014 Are you deaf, or do you have serious difficulty hearing No 02/21/2014 9:51 AM Mima Flynn MA No [facility] 02-21-2014 Are you blind, or do you have serious difficulty seeing, even when wearing glasses No 02/21/2014 9:51 AM Mima Flynn MA No [facility] 02-21-2014 Do you have serious difficulty walking or climbing stairs No 02/21/2014 9:51 AM Mima Flynn MA [facility] 02-21-2014 Do you have difficul ty dressing or bathing No 02/21/2014 9:51 AM Mima Flynn MA No [facility] 02-21-2014 Because of a physica l, mental, or emotional condition, do you have difficulty doing errands alone such as visiting a physician's office or shopping No 02/21/2014 9:51 AM Mima Flynn MA [facility] Mental Status Date Assessment Result Facility 02-21-2014 Because of a physica l, mental, or emotional condition, do you have serious difficulty concentrating, remembering, or making decisions No 02/21/2014 9:51 AM Mima Flynn MA No [facility] Clinical Notes 01-30-2014 to 10-17-2024 Note Date & Type Note Facility 10-17-2024 Radiology Diagnostic study note [facility] Imaging Services [address] [place], [place] [address] Acute Abdomen Inc Chest MR#: [id number] Acct: [id number] Name: OZIEL THOMAS Rep #: [id number] : 1985 F 39 From: [facility] Muse MD PCP: Dr. Roshni Jorgensen MD Status: REG CL I Study:Acute Abdomen Inc Chest Date of Exam: 10/16/24 Exam# [id number] Ordering Dr: Claire Jorgensen MD PROCEDURE: ACUTE ABDOMEN INC CHEST 10/16/2024 REASON FOR EXAM: RIGHT FLANK PAIN TECHNIQUE: ACUTE ABDOMEN INC CHEST, five view. COMPARISON: Woods Warden from the CT examination of 10/17/2020 RAD/Acute [...] of the spine are seen Reading Location: [place] [address] CC: Dr. Roshni Jorgensen MD ~ Semi Driver: Signed [facility] 10-08-2024 Progress note [facility] 10-08-2024 Progress note Note Date/Time October 08, 2024 12:56pm [facility] [address], [address] [place] [address] OFFICE VISIT Date of Service: 10/08/24 MR#: [id number] Acct: [id number] Name: OZIEL THOMAS Rep #: [id number] : 1985 Provider: JOCY Carter Age/Sex: 39/F Location: [facility] Status: Signed Intake Vital Signs 01/29/24 10:00 [...] color/ character of stool; cloudy urine. No [id number]-[id number] products taken to assist. No other associated [...] on 10/08/24 12 :50 Off Ur Spec [place] 1.005 Last Edit by Prachi Zamora MA [...] Cosigner Signature: Date (if applicable) CC: ~ [place] [employer] Work Phone: [phone] Telephone encounter Note* Telephone Encounter - Deisy Washington RN - 05/23/2024 2:22 PM EST 3rd attempt. Patient has not read [employer] message. Left message for patient to call office or checkmychart message. Letter sent. Deisy Washington RN [facility]03-05-2025 Miscellaneous Notes* Telephone Encounter - Deisy Washington RN - 05/23/2024 2:22 PM EST 3rd attempt. Patient has not read [employer] message. Left message for patient to call [...] has beencompleted. Please have your patient call [phone] or ext. [phone] to schedule a breast imaging exam appointment for additional evaluation. Please ensure that you have placed either an electronic or hard copy order for the additional exam recommended from the screening mammogram report. We understand that this is an inconvenience to you and greatly appreciate your cooperation. If your patient has already scheduled an appointment, please disregard this letter. Sincerely, [facility] Imaging documented in this encounterK[facility]03-04-2025 Telephone encounter Note * Telephone Encounter - Deisy Washington RN - 05/22/2024 10:09 AM EST Left message for patient to call office or check mychart message. Deisy Washington RN [facility]03-03-2025 Telephone encounter Note* Telephone Encounter - Deisy [...] has beencompleted. Please have your patient call [phone] or ext. [phone] to schedule a breast imaging exam appointment for additional evaluation. Please ensure that you have placed either an electronic or hard copy order for the additional exam recommended from the screening mammogram report. We understand that this is an inconvenience to you and greatly appreciate your cooperation. If your patient has already scheduled an appointment, please disregard this letter. Sincerely, [facility] Breast Imaging [facility]12-18-2024 History of Present illness Narrative* Catie Hamm, [...] PATIENT PRESENTS WITH AN IMPLANTABLE OR ATTACHED PRODUCTION INTERNSHIP: No RADIOLOGY DEPARTMENT: Mammography PERIPHERAL IV DATA: Not applicable SIGNED BY: Trisha Rob March 07, 2024 9:47 AM documented in this encounterK[facility]12-18-2024 NoteHNO ID: [id number] Author: CATIE HAMM Mammo Tech Service: ? Author Type: Label Remover Type: Progress Notes Filed: 03/07/2024 09:47 Note [...] PATIENT PRESENTS WITH AN IMPLANTABLE OR ATTACHED PRODUCTION INTERNSHIP: No RADIOLOGY DEPARTMENT: Mammography PERIPHERAL IV DATA: Not applicable SIGNED BY: Trisha Rob March 07, 2024 9:47 [facility]12-18-2024 Instructions* Patient Instructions* Dolores Hodge APRN.THERAPEUTIC RADIOLOGIST - 03/07/2024 8:14 AM EST To schedule an appointment please either: Use the [employer] Self Scheduling Ticket you may receive OR Call [phone], Option 2 to schedule. For information pertaining to genetics services at the [facility], you can visit us online [email or web address]. If [...] maximum interval). documented in this encounterK[facility]12-18-2024 NoteHNO ID: [id number] Author: DOLORES HODGE APRN.LAILA Service: ? Author Type: Nurse Practitioner Type: Progress Notes Filed: 03/07/2024 08:31 Note Text: Nurse Transition offered: Patient declines. Oziel is a 38 [...] L2 SAB0 IAB0 Ectopic0 Multiple0 Live Births2 Operational Meteorologist History LMP: 02/08/2024 (Exact Date), Having periods Age at Menarche: Age at First : Age at Menopause: Operational Meteorologist History Comments: Sexual Activity: Yes; Male Contraception: [...] discussed with the Patient or Patient's Authorized Petrophysicist. As applicable, any other physician, advance practice provider, medical student, or other health professional student that will be observing or involved in the sensitive examination for educational or training purposes was discussed with the Patient or Authorized Petrophysicist. The Patient or Authorized Petrophysicist has agreed to proceed with the sensitive [...] bilateral labia majora, normal Bartholin's glands, urethra, Plumas [place]'s glands, + 3 mm raised mole to [...] of malignant neoplasm o (more content not included)...[facility]12-18-2024 History of Present illness Narrative* Dolores Hodge APRN.THERAPEUTIC RADIOLOGIST - 03/07/2024 7:59 AM EST Nurse Transition offered: Patient declines. Oziel is a 38 [...] L2 SAB0 IAB0 Ectopic0 Multiple0 Live Births2 Operational Meteorologist History LMP: 02/08/2024 (Exact Date), Having periods Age at Menarche: Age at First : Age at Menopause: Operational Meteorologist History Comments: Sexual Activity: Yes; Male Contraception: [...] discussed with the Patient or Patient's Authorized Petrophysicist. As applicable, any other physician, advance practice provider, medical student, or other health professional student that will be observing or involved in the sensitive examination for educational or training purposes was discussed with the Patient or Authorized Petrophysicist. The Patient or Authorized Petrophysicist has agreed to proceed with the sensitive [...] bilateral labia majora, normal Bartholin's glands, urethra, [place]'s glands, + 3 mm raised mole to [...] notify and will obtain ultrasound. Dolores Hodge APRN.THERAPEUTIC RADIOLOGIST documented in this encounterK[facility]11-24-2023 History of Present illness Narrative* Jenae Rosa APRN.CNP - 02/11/2023 9:40 AM EST Nurse Transition offered: Patient declines. Oziel is a 37 [...] L2 SAB0 IAB0 Ectopic0 Multiple0 Live Births2 Operational Meteorologist History LMP: 01/19/2023 (Exact Date), Having periods Age at Menarche: Age at First : Age at Menopause: Operational Meteorologist History Comments: Sexual Activity: Yes; Male Contraception: [...] external genitalia normal, normal Bartholin's glands, urethra, Pl[place]'s glands, no vulvar lesions, no cervical lesions, [...] Rosa APRN.LAILA documented in this encounterK[facility]10-14-2022 Miscellaneous Notes* Telephone Encounter - Claire Barillas [...] Barillas RN documented in this encounterKet[facility]11-12-2014 History of Past illness Narrative* Problem Noted Date Resolved Date Nipple discharge 01/30/2014 07/13/2016 Excessive growth affec ting management of mother, antepartum 12/05/2007 12/29/2007 Supervision of normal first 04/11/2007 12/29/2007 documented as of this encounter (statuses as of 01/01/2022) [facility]11-12-2014 History of Past illness Narrative* Problem Noted Date Diagnosed Date Resolved Date Nipple discharge 01/30/2014 07/13/2016 Excessive growth affec ting management of mother, antepartum 12/05/2007 12/29/2007 Supervision of normal first 04/11/2007 12/29/2007 documented as of this encounter (statuses as of 02/11/2023) [facility] Diagnosis General counseling for prescription of oral contraceptives documented in this encounter [facility]* Diagnosis Onset Date Resolution Status Cystitis acute [facility] Work Phone: Evaluation note* Diagnosis Onset Date Resolution Status Cystitis acute UTI (urinary tract infection) acute [facility] Work Phone: Evaluation note* Diagnosis Encounter for gynecological examination (general) (routine) without abnormal findings- Primary General counseling for prescription of oral contraceptives Screening for cervical cancer Screening for malignant neoplasm of the cervix Encounter for screening for human papillomavirus (HPV) Special screening examination for human papillomavirus (HPV) documented in this encounter [facility] note* Diagnosis Encounter for gynecological examination [...] neoplasm of breast documented in this encounter [facility] note* Diagnosis Encounter for screening mammogram for malignant neoplasm of breast Other screening mammogram documented in this encounter [facility] note* Diagnosis Abnormal mammogram- Primary Abnormal mammogram, unspecified documented in this encounter [facility] noteNo assessment information availableHammond [facility] Work Phone: Reason for referral (narrative)* Diagnostic Procedure Only (Routine) - New Request Specialty Diagnoses / Procedures Referred By Sindy naidu Referred To Contact [facility] Diagnoses Abnormal mammogram Procedures ERNA DIAGNOSTIC LEFT DIAGNOSTIC MAMMOGRAPHY COMPUTER-AIDED DETCJ UNI Jenae Rosa APRN.CNP [address] [place] [address] [facility] [address] [place] [phone] Referral ID Status Reason Start Date Expiration Date Visits Requested Visits Authorized [id number] New Request Auto-Generat ed Referral 4 04/11/2025 1 1 * Diagnostic Procedure Only (Routine) - New Request Specialty Diagnoses / Procedures Referred By Sindy naidu Referred To Contact [facility] Diagnoses Abnormal mammogram Procedures US BREAST LTD LEFT US BREAST UNI REAL TIME WITH IMAGE LIMITED Jenae Rosa APRN.CNP [address] [place] [address] [facility] [address] [place] [address] Referral ID Status Reason Start Date Expiration Date Visits Requested Visits Authorized [id number] New Request Auto-Generat ed Referral 04/11/2025 1 1 [facility]No reason for referral information availableLake Ann [facility] Work Phone: Reason for visit Narrative* Diagnostic Procedure Only (Routine) - Closed Specialty Diagnoses / Procedures Referred By Sindy naidu Referred To Contact [facility] Diagnoses Encounter for screening mammogram for malignant neoplasm of breast Procedures ERNA SCREENING W ARNULFO SCREENING DIGITAL BREAST TOMOSYNTHESIS BI SCREENING MAMMOGRAPHY BI 2-VIEW BREAST INC CAD Dolores Hodge APRN.CNP [address] [place] [address] [facility] [place] [address] Referral ID Status Reason Start Date Expiration Date V isits Requested Visits Authorized [id number] Closed Auto-Generate d Referral 03/07/2024 04/06/2025 1 1 [facility] Chief Complaint and Reason for Visit Chief [...] CONSULT TO MEDICAL GENETICS - GENERAL OFFICE/[facility] 60 MINUTES MEDICAL GENETICS COUNSELING EACH 30 MINUTES Dolores Hodge APRN.CNP [address] [place] [address] [facility] [address] [place] [address] Referral ID Status Reason Start Date Expiration Date Visits Requested Visits Authorized [id number] Pending Review PCP Requested Referral Auto-Generate d Referral 03/07/2025 1 1 Specialty Diagnoses / Procedures Referred By Contac t Referred To Contact [facility] Diagnoses Encounter for screening mammogram for malignant neoplasm of breast Procedures ERNA SCREENING W ARNULFO SCREENING DIGITAL BREAST TOMOSYNTHESIS BI SCREENING MAMMOGRAPHY BI 2-VIEW BREAST INC CAD Fernandomanolo Dolores, CHANNEL PROCESS SUPERVISOR.THERAPEUTIC RADIOLOGIST [address] [place] [address] [facility] [address] [place] [address] Referral ID Status Reason Start Date Expiration Date V isits Requested Visits Authorized [id number] Closed Auto-Generate d Referral 03/07/2024 04/06/2025 1 [...] any alcohol or drug abuse patient.[facility] the event this information is protected by the Federal Confidentiality of Alcohol and Drug Abuse Patient Records regulations: The Federal rules restrict any use of the information to criminally investigate or prosecute any alcohol or drug abuse patient.[facility] the event this information is protected by the Federal Confidentiality of Alcohol and Drug Abuse Patient Records regulations: The Federal rules restrict any use of the information to criminally investigate or prosecute any alcohol or drug abuse patient.[facility] Troy[facility] the event this information is protected by the Federal Confidentiality of Alcohol and Drug Abuse Patient Records regulations: The Federal rules restrict any use of the information to criminally investigate or prosecute any alcohol or drug abuse patient.[facility] Troy[facility] the event this information is protected by the Federal Confidentiality of Alcohol and Drug Abuse Patient Records regulations: The Federal rules restrict any use of the information to criminally investigate or prosecute any alcohol or drug abuse patient.[facility] TroyIn the event this information is protected by the Federal Confidentiality of Alcohol and Drug Abuse Patient Records regulations: The Federal rules restrict any use of the information to criminally investigate or prosecute any alcohol or drug abuse patient.[facility] Troy[facility] the event this information is protected by the Federal Confidentiality of Alcohol and Drug Abuse Patient Records regulations: The Federal rules restrict any use of the information to criminally investigate or prosecute any alcohol or drug abuse patient.[facility] Reason for Visit (unrecogniz ed section and [...] section and content) DATE CREATED AUTHOR 05/25/2024 [facility] DATE CREATED AUTHOR AUTHOR'S BERNARD ATION 11/11/2024 [facility] FOR RECORDS PERTAINING TO PATIENTS WHO [...] BE BASED ON THE PRIMARY CLINICAL RECORDS. [facility] [employer] [facility]. provides no warranty or guarantee of the accuracy or completeness of information in this document.
--- OUTSIDE RECORDS SUMMARY | 2025-03-19 22:00 | XMS RPT_ITS | CCD ---
Author Organization [facility] CliniSyaz Care Team Providers Care Residential Tech Name Role Phone Hollister ORTHOPEDIC CODER, Elzbieta K Unavailable Unavailable Hollister ORTHOPEDIC CODER, Elzbieta K Unavailable Unavailable Unavailable Primary Care Provider UnavailDr. Mata Cruz Primary Care Provider Dr. Mata Morrison Referring Provider JOCY Henry Attending Provider JOCY Wilcox Attending Provider Unavailable Primary Care Provider Unavailabl e Unavailable Primary Care Provider UnavailDOLORES Zabala Referring Unavailable DOLORES HODGE Attending Unavailable Dr. Mata Morrison MD Primary Care Provider Dr. Mata Morrison MD Referring Provider [phone] Dat Wilcox Attending Provider Roshni Jorgensen MD Primary Care Provider [phone] Roshni Jorgensen MD Attending Provider Roshni Jorgensen MD Referring Provider Roshni Jorgensen Primary Care Unavailable Dat Wilcox Attending Unavailable Roshni Jorgensen Referring Unavailable Mata Morrison Referring Unavailable Mata Morrison Primary Care Unavailable Dat Wilcox Attending Unavailable Smith MANAGER HRIS, Mata Toro Attending Unavailable Mata Morrison Referring Unavailable Mata Morrison Primary Care Unavailable Roshni Jorgensen Attending Unavailable Roshni Jorgensen Primary Care Unavailable Roshni Jorgensen Referring Unavailable Mata Morrison Primary Care Unavailable Dat Wilcox Attending Unavailable Smith MANAGER HRISMata Referring Unavailable Smith MANAGER HRIS, Mata Toro Attending Unavailable Mata Morrison Primary [...] TABS 1 tab po daily NORGESTIMATE-ETH ESTRADIOL [id number] Elzbieta Ko [facility] Comment on above: Take 1 tablet by luz elena th once daily. hydrocortisone 10 mg/ml / neomycin 3.5 mg/ml / polymyxin b 88439 unt/ml otic suspension (6 sources) Aminoglycoside Antibacterial, Polymyxin-class Antibacterial, Corticosteroid Start: 11-07-2024 Neomycin-Polymyxin -Hc 3.5-10,000-1 mg/mL-unit/mL-% drops,suspension Active 4 NMA OTIC THREE TIMES A DAY 10 November 07, 2024 12:00am November 16, 2024 12:00am Start: 01-29-2024 End: 02-08-2024 Lvdmjdtv-Eoepkvuyi-Bu 3.5-10 ,000-1 mg/mL-unit/mL-% solution Discontinued 4 NMA [...] 09, 2020 6:40am BIOTIN MAXIMUM S TRENGTH 68825 MCG TABS BIOTIN [id number] Elzbieta K Hollister ORTHOPEDIC CODER brompheniramine maleate 0.4 mg/ml / dextromethorphan hydrobromide 2 mg/ml / pseudoephedrine hydrochloride 6 mg/ml oral solution (1 source) alpha-Adrenergic Agonist, Uncompetitive F-afhgnb-O-aspartate Receptor Antagonist, Sigma-1 Agonist Start: 03-06-2019 End: 01-01-2022 take 5 mL by mouth every six hours as needed for cough and cough Gktczlmltymywui-Anucetolz-KW (BROMFED DM) 2-30-10 mg/5 mL syrup Indications: Cough Take 5 mL by mouth four times daily as needed. 118 mL 0 03/06/2019 01/01/2022 Discontinued Comment on above: Take 5 mL by mouth f our times daily as needed. CALCIUM POLYCARBOPHIL TABS (2 sources) FIBER TABS 8 - 1 0 per day CALCIUM POLYCARBOPHIL TABS [id number] Elzbieta K Hollister ORTHOPEDIC CODER Methylcellulose (1 source) End: 01-01-2022 METHYLCELLULOSE (FIBER THERAPY LAXATIVE ORAL) Take by mouth. 0 01/01/2022 Discontinued Comment on above: Take by mouth. MULTIPLE VITAMIN (1 source) DAILY MULTIPLE V ITAMINS TABS MULTIPLE VITAMIN [id number] Elzbieta Cardonas ORTHOPEDIC CODER MULTIPLE VITAMIN (1 source) DAILY MULTIPLE V ITAMINS TABS MULTIPLE VITAMIN 41666280071 Elzbieta Cardonas ORTHOPEDIC CODER Multivitamin preparation (9 sources) Start: 10-10-2019 End: 09-09-2020 take 1 tablet by mouth once daily Multivitamin Discontinued 1 TABLET PO DAILY October 10, 2019 12:00am September 09, 2020 6:40am multivitamin (MU LTIPLE VITAMIN ORAL) MULTIPLE VITAMIN DAILY MULTIPLE VITAMINS TABS MULTIPLE VITAMIN [id number] Elzbieta Ko CMA [facility] ([address]) Active multivitamin (MU LTIPLE VITAMIN ORAL) MULTIPLE VITAMIN DAILY MULTIPLE VITAMINS TABS MULTIPLE VITAMIN [id number] Elzbieta Ko CMA [facility] ([address]) 0 Active Comment on above: MULTIPLE VITAMIN JASON LY MULTIPLE VITAMINS TABS MULTIPLE VITAMIN [id number] Elzbieta Ko ORTHOPEDIC CODER [facility] ([address]) Multivitamin tablet (4 sources) Start: 020 End: [...] TABS 1 tab po daily NORGESTIMATE-ETH ESTRADIOL [id number] Elzbieta Ko CMA omeprazole 20 mg delayed [...] CAPS 1 po daily SACCHAROMYCES BOULARDII CAPS [id number] Elzbieta K Hollister ORTHOPEDIC CODER take 1 capsule by mouth once jason ly PROBIOTIC CAPS 1 po daily SACCHAROMYCES BOULARDII CAPS [id number] Elzbieta K Hollister ORTHOPEDIC CODER Problems Active Problems Problem Classification Problem Date [...] Reporton 0 11-07-2024 Urgent Care Visit Report [facility] [address] , [address] [place] [address] OFFICE VISIT Date of Service: 11/07/24 MR#: [id number] Acct: [id number] Name: OZIEL THOMAS Rep #: [id number] : 1985 Provider: JOCY Carter Age/Sex: 39/F Location: [facility] Status: Signed Intake Vital Signs 01/29/24 10:00 [...] last 2.5 weeks and its not helping. [facility] Medical History UTI (urinary tract infection) Elevated [...] exertion. No close contacts with similar complaints. Sgwc-pwm-mlsnjyh NSAIDs and acetaminophen taken without relief. No [...] and movement (more content not included)... Normal [facility] Acute Abdomen Inc Cheston Acute Abdomen Inc Chest [facility] Imaging Services [address] [place] [address] Acute Abdomen Inc Chest MR#: [id number] Acct: [id number] Name: OZIEL THOMAS Rep #: [id number] : 1985 F 39 From: Gordon Mendes PCP: Dr. Roshni Jorgensen MD Status: REG CLI Study: Acute Abdomen Inc Chest Date of Exam: 10/16/24 Exam# [id number] Ordering Dr: Roshni Jorgensen MD PROCEDURE: ACUTE ABDOMEN INC CHEST 10/16/2024 REASON FOR EXAM: RIGHT FLANK PAIN TECHNIQUE: ACUTE ABDOMEN INC CHEST, five view. 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 Roshni Jorgensen MD Museum Attendant: Signed Normal [facility] Urine Cultureon 10-10-2024 URC Escherichia coli [place] Count >100,000 Escherichia coli: REACTION Ampicillin Islt [...] TMP SMX Islt TAJ <=20 S Normal [facility] Comment on above: Performed By: #### M 100.2207 #### [facility] Laboratory [address] [place], [place], [address] Laboratory - Chemistry and C hemistry - challengeOrdered By: Dat Guo on 10-08-2024 Bilirubin Ql (U) Negative [facility] Glucose Ql (U) Negative [facility] Ketones Ql (U) Negative [facility] pH (U) 6.5 [pH] [facility] Specific gravity (U) [Rel density] 1.005 [facility] Urobilinogen (U) [Mass/Vol] 0.9059910 mg/dL [facility] Laboratory - Hematology and Cell countsOrdered By: Dat Guo on 10-08-2024 Hemoglobin Ql (U) Moderate [facility] Laboratory - Specimen inform ationOrdered By: Dat Guo on 10-08-2024 Clarity (U) Cloudy [facility] Color (U) STRAW [facility] Laboratory - UrinalysisOrder ed By: Dat Guo on 10-08-2024 Nitrite Ql (U) Negative [facility] Protein Ql (U) Trace [facility] No Panel InformationOrdered By: Dat Guo on 10-08-2024 Urine Leukocytes Positive [facility] Urine Non-Hemolyzed Blood Large [facility] Urgent Care Visit Reporton 0 10-08-2024 Urgent Care Visit Report [facility] [address] , [address] [place], [place] [address] OFFICE VISIT Date of Service: 10/08/24 MR#: [id number] Acct: [id number] Name: OZIEL THOMAS Rep #: [id number] : 1985 Provider: JOCY Carter Age/Sex: 39/F Location: [facility] Status: Signed Intake Vital Signs 01/29/24 10:00 [...] color/ character of stool; cloudy urine. No fhyr-guv-xajxvna products taken to assist. No other associated [...] MA on 10/08/24 12:50 Off Ur Spec [place] 1.005 Last Edit by Prachi Zamora MA [...] Zamora MA (more content not included)... Normal [facility] Urine cultureOrdered By: Familia Guo on 10-08-2024 Bacteria identified Cx Nom (U) Escherichia coli Abnormal [facility] CNPNon 05-21-2024 LAILAN Telephone (OBGYWM) ---- OZIEL THOMAS ([id number]) 1985 F Date Time Provider Department 05/21/24 DOLORES HODGE During your visit today, we recorded the following information about you: Deisy Washington RN 05/21/2024 10:21 AM Signed ----- Message from Dolores Hdoge APRN.CNP sent at 05/21/2024 7:37 AM EST [...] been completed. Please have your patient call [phone] or ext. [phone] to schedule a breast imaging exam appointment for additional evaluation. Please ensure that you have placed either an electronic or hard copy order for the additional exam recommended from the screening mammogram report. We understand that this is an inconvenience to you and greatly appreciate your cooperation. If your patient has already scheduled an appointment, please disregard this letter. Sincerely, [facility] Deisy Washington RN 05/22/2024 10:10 AM Signed Left message for patient to call office or check Audacioust message. FAHAD Escobar Trisha, RN 05/23/2024 2:27 PM Signed 3rd attempt. Patient has not read [place] message. Left message for patient to call office or check mychart message. Letter sent. Deisy Washington RN Allergies As of Date: 05/21/2024 (No Known Allergies) Date Reviewed: 03/07/2024 Reviewed by: Dolores Hodge APRN.[facility] - Fully Assessed Reason for Visit: Radiology Mammogram [1485] Prescriptions as of 05/23/2024 - norgestimate 0.25 mg-ethinyl estradiol 35 mcg (SPRINTEC) 0.25-35 mg-mcg per tablet Take 1 tablet by mouth once daily. - multivitamin (MULTIPLE VITAMIN ORAL) MULTIPLE VITAMIN DAILY MULTIPLE VITAMINS TABS MULTIPLE VITAMIN [id number] Elzbieta K Hollister ORTHOPEDIC CODER [facility] ([address]) - L.ACID/L.CASEI/B.BI F/B.AFIA/FOS (PROBIOTIC BLEND ORAL) Take by mouth. Problem List As Of Date 05/21/2024 Noted Resolved SUPERVIS NORMAL 1ST PREG [Z34.00] 04/11/2007 12/29/2007 EXCESS FET GRTH-ANTEPART [O36.60X0] 12/05/2007 12/29/2007 Hemorrhoids, Internal [K64.8] 09/25/2009 Nipple discharge [N64.52] 01/30/2014 07/13/2016 Family history of malignant neoplasm of breast *03/07/2024 Letter Text Encounter Status:Closed by DOLORES HODGE on 05/23/24 [facility] 03-12-2024 KENJI Telephone (OBGYWM) ---- OZIEL THOMAS ([id number]) 1985 F Date Time Provider Department 03/12/24 JENAE ROSA OBJEANCARLOSWMarybel During your visit today, we recorded the following information about you: Allergies As of Date: 03/12/2024 (No Known Allergies) Date Reviewed: 03/07/2024 Reviewed by: Dolores Hodge APRN.[facility] - Fully Assessed Reason for Visit: Orders [681] Primary Visit Diagnosis:Abnormal mammogram [R92.8] Order(s):US BREAST LTD LEFT [3815021] Order #: [id number] FUTURE ERNA DIAGNOSTIC LEFT [[id number]] Order #: [id number] FUTURE Prescriptions as of 03/12/2024 - norgestimate 0.25 mg-ethinyl estradiol 35 mcg (SPRINTEC) 0.25-35 mg-mcg per tablet Take 1 tablet by mouth once daily. - multivitamin (MULTIPLE VITAMIN ORAL) MULTIPLE VITAMIN DAILY MULTIPLE VITAMINS TABS MULTIPLE VITAMIN [id number] Elzbieta Ko ORTHOPEDIC CODER [facility] ([address]) - L.ACID/L.CASEI/B.BI F/B.AFIA/FOS (PROBIOTIC BLEND ORAL) Take by mouth. Problem List As Of Date 03/12/2024 Noted Resolved SUPERVIS NORMAL 1ST PREG [Z34.00] 04/11/2007 12/29/2007 EXCESS FET GRTH-ANTEPART [O36.60X0] 12/05/2007 12/29/2007 Hemorrhoids, Internal [K64.8] 09/25/2009 Nipple discharge [N64.52] 01/30/2014 07/13/2016 Family history of malignant neoplasm of breast *03/07/2024 Encounter Status:Closed by JENAE ROSA on 03/12/24 Normal [facility] CNOVon 03-07-2024 CNOV Office Visit (OBGYWM) ---- OZIEL THOMAS ([id number]) 1985 F Date Time Provider Department 03/07/24 8:15 AM DOLORES HODGE During your visit today, we recorded the following information about you: Blood pressure Weight Height Last Period 110/64 78.5 kg 1.606 m 02/08/24 Dolores Hodge APRN.CNP 03/07/2024 8:31 AM Signed Cold Mill Operator offered: Patient declines. Oziel is a 38 [...] L2 SAB0 IAB0 Ectopic0 Multiple0 Live Births2 Blankbook Forwarder History LMP: 02/08/2024 (Exact Date), Having periods Age at Menarche: Age at First : Age at Menopause: Blankbook Forwarder History Comments: Sexual Activity: Yes; Male Contraception: [...] discussed with the Patient or Patient's Authorized Traffic Rate Computer. As applicable, any other physician, advance practice provider, medical student, or other health professional student that will be observing or involved in the sensitive examination for educational or training purposes was discussed with the Patient or Authorized Traffic Rate Computer. The Patient or Authorized Traffic Rate Computer has agreed to proceed with the sensitive [...] bilateral labia majora, normal Bartholin's glands, urethra, Arcadia's glands, + 3 mm raised mole to [...] - ICD9: (more content not included)... Normal [facility] SCREENING W TOMOon 03-07 ERNA SCREENING W ARNULFO * * *Final Report* * * DATE OF EXAM: Mar 07 2024 10:32AM WRW 0582 - ERNA SCREENING W ARNULFO / PROCEDURE REASON: Encounter for screening mammogram for malignant neoplasm of breast * * * * Physician Interpretation * * * * RESULT: [place] [address] [place] [id number] #[id number] - [facility] SCREENING W ARNULFO HISTORY: Patient [...] Erica Adrian M.D. Electronically signed on: 03/10/2024 Museum Attendant: RENY Transcribe Date/Time: Mar 07 2024 9:48A Dictated by: ERICA ADRIAN MD This examination was interpreted and the report reviewed and electronically signed by: ERICA ADRIAN MD on Mar 10 2024 7:24AM EST [id number] Normal [facility] Urine Cultureon 02-01-2024 URC Staphylococcus saprophyticus [place] Count 25,000-50,000 Staphylococcus saprophyticus: REACTION cefOXitin Susc Islt Clindamycin.induced Susc Islt NEG Gentamicin Islt TAJ <=0.5 S Nitrofurantoin Islt TAJ <=16 S Oxacillin Susc Islt S Tetracycline Islt TAJ <=1 S Vancomycin Islt TAJ <=0.5 S Normal [facility] Comment on above: Performed By: #### M 100.7479 #### [facility] [address] [place], [address] Urgent Care Visit Reporton 1 03-30-2023 Urgent Care Visit Report [facility] [address], [address] [place], [place] [address] OFFICE VISIT Date of Service: 01/29/24 MR#: [id number] Acct: [id number] Name: OZIEL THOMAS Rep #: [id number] : 1985 Provider: CARLYN garzon Age/Sex: 38/F Location: [facility] Status: Signed Intake Vital Signs 12/27/22 07:40 [...] Chief Complaint: dysuria and lt ear concerns Zipper Cutter Required: No Accompanied by: Self Is patient [...] all relate (more content not included)... Normal [facility] Basophil percentageOrdered B y: Dat Guo on 12-27-2022 Basophil percentage 25-50 SEEN /hpf 0-5 [facility] Bilirubin Test strip Ql (U)O rdered By: Dat Guo on 12-27-2022 Bilirubin Ql (U) Negative Negative [facility] Culture, urineOrdered By: St barbie Guo on 12-27-2022 Bacteria identified Cx Nom (U) Positive [facility] Ketones Test strip Ql (U)Ord ered By: Dat Guo on 12-27-2022 Ketones Ql (U) 5 mg/dl Negative [facility] Laboratory - Chemistry and C hemistry - challengeon 12-27-2022 Bilirubin Ql (U) Negative [facility] Glucose Ql (U) Negative [facility] Ketones Ql (U) Trace (5) [facility] Specific gravity (U) [Rel density] 1.030 [facility] Urobilinogen (U) [Mass/Vol] Negative [facility] Laboratory - Hematology and Cell countson 12-27-2022 Hemoglobin Ql (U) Large [facility] Laboratory - Specimen inform ationon 12-27-2022 Clarity (U) Clear [facility] Color (U) Yellow [facility] Laboratory - Urinalysison Nitrite Ql (U) Negative [facility] Protein Ql (U) Negative [facility] Mucus LM Ql (Urine sed)Order ed By: Dat Guo on 12-27-2022 Mucus Ql (Urine sed) 1+ /hpf [facility] Nitrite Test strip Ql (U)Ord ered By: Dat Guo on 12-27-2022 Nitrite Ql (U) Negative Negative [facility] No Panel Informationon 12-27 Urine Leukocytes Positive [facility] Urine Non-Hemolyzed Blood [facility] Protein Test strip Ql (U)Ord ered By: Dat Guo on 12-27-2022 Protein Ql (U) 30 mg/dl Negative [facility] Squamous epithelial cells de tection in urine sediment by light microscopyOrdered By: Dat Guo on 12-27-2022 Epithelial cells.squamous LM Ql (Urine sed) 0-5 SEEN /hpf 5-10 [facility] Urine blood detectionOrdered By: Dat Guo on 12-27-2022 RBC Ql (U) 150 /ul Negative [facility] RBC Ql (U) 5-10 SEEN /hpf 0-5 [facility] Urine clarityOrdered By: Familia Guo on 12-27-2022 Clarity (U) Clear Clear [facility] Urine color determinationOrd ered By: Dat Guo on 12-27-2022 Color (U) Yellow Yellow [facility] Urine glucose detectionOrder ed By: Dat Guo on 12-27-2022 Glucose Ql (U) Normal mg/dl Normal [facility] Urine leukocyte esterase det ection by dipstickOrdered By: Dat Guo on 12-27-2022 Leukocyte esterase Test strip Ql (U) 100 /ul Negative [facility] Urine pHOrdered By: Dat lundberg on 12-27-2022 pH (U) 5.0 [pH] 5.0 - 8.0 [facility] Urine sediment bacteria coun t by microscopy (number/high power field)Ordered By: Dat Guo on 12-27-2022 Bacteria LM.HPF (Urine sed) [#/Area] 1 /[HPF] None Seen [facility] Urine specific gravity measu rementOrdered By: Dat Guo on 12-27-2022 Specific gravity (U) [Rel density] 1.020 1.002-1.030 [facility] Urobilinogen Auto test strip Ql (U)Ordered By: Dat Guo on 12-27-2022 Urobilinogen Ql (U) Normal mg/dl Normal [facility] Amorphous sediment detection in urine sediment by light microscopyOrdered By: Lawrence Yeager on 09-22-2022 Amorphous sediment LM Ql (Urine sed) 1+ URATE [facility] Basophil percentageOrdered B y: Lawrence Yeager on 09-22-2022 Basophil percentage 25-50 SEEN /hpf 0-5 [facility] Bilirubin Test strip Ql (U)O rdered By: Lawrence Yeager on 09-22-2022 Bilirubin Ql (U) Negative Negative [facility] Culture, urineOrdered By: Florentino Yeager on 09-22-2022 Bacteria identified Cx Nom (U) Presumptive E. coli [facility] Ketones Test strip Ql (U)Ord ered By: Lawrence Yeager on 09-22-2022 Ketones Ql (U) Negative Negative [facility] Mucus LM Ql (Urine sed)Order ed By: Lawrence Yeager on 09-22-2022 Mucus Ql (Urine sed) 0 SEEN /hpf [facility] Nitrite Test strip Ql (U)Ord ered By: Lawrence Yeager on 09-22-2022 Nitrite Ql (U) Negative Negative [facility] Protein Test strip Ql (U)Ord ered By: Lawrence Yeager on 09-22-2022 Protein Ql (U) 30 mg/dl Negative [facility] Squamous epithelial cells de tection in urine sediment by light microscopyOrdered By: Lawrence Yeager on 09-22-2022 Epithelial cells.squamous LM Ql (Urine sed) 0-5 SEEN /hpf 5-10 [facility] Urine blood detectionOrdered By: Lawrence Yeager on 09-22-2022 RBC Ql (U) 250 /ul Negative [facility] RBC Ql (U) 10-25 SEEN /hpf 0-5 [facility] Urine clarityOrdered By: Ajay Yeager on 09-22-2022 Clarity (U) Sl. Cloudy Clear [facility] Urine color determinationOrd ered By: Lawrence Yeager on 09-22-2022 Color (U) Yellow Yellow [facility] Urine glucose detectionOrder ed By: Lawrence Yeager on 09-22-2022 Glucose Ql (U) Normal mg/dl Normal [facility] Urine leukocyte esterase det ection by dipstickOrdered By: Lawrence Yeager on 09-22-2022 Leukocyte esterase Test strip Ql (U) 500 /ul Negative [facility] Urine pHOrdered By: Lawrence pak on 09-22-2022 pH (U) 6.5 [pH] 5.0 - 8.0 [facility] Urine sediment bacteria coun t by microscopy (number/high power field)Ordered By: Lawrence Yeager on 09-22-2022 Bacteria LM.HPF (Urine sed) [#/Area] 0 /[HPF] None Seen [facility] Urine specific gravity measu rementOrdered By: Lawrence Yeager on 09-22-2022 Specific gravity (U) [Rel density] 1.010 1.002-1.030 [facility] Urobilinogen Auto test strip Ql (U)Ordered By: Lawrence Yeager on 09-22-2022 Urobilinogen Ql (U) Normal mg/dl Normal [facility] Laboratory - Chemistry and C hemistry - challengeon 09-21-2022 Bilirubin Ql (U) Negative [facility] Glucose Ql (U) Negative [facility] HCG ( test) Ql (U) Negative [facility] Ketones Ql (U) Negative [facility] pH (U) 6.5 [pH] [facility] Specific gravity (U) [Rel density] 1.005 [facility] Urobilinogen (U) [Mass/Vol] 0.3377464 mg/dL [facility] Laboratory - Hematology and Cell countson 09-21-2022 Hemoglobin Ql (U) Hemolyzed [facility] Laboratory - Specimen inform ationon 09-21-2022 Clarity (U) Clear [facility] Color (U) YELLOW [facility] Laboratory - Urinalysison Nitrite Ql (U) Negative [facility] Protein Ql (U) Trace [facility] No Panel Informationon 09-21 Urine Leukocytes Positive [facility] Urine Non-Hemolyzed Blood Large [facility] Clinical Lists Update: Prelo research 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 Mata Morrison MD Work Phone: [facility] 11-07-2024 12:59-0400 Diastolic blood pressure 80 mm[Hg] Dr. Mata Morrison MD Work Phone: [facility] 11-07-2024 12:59-0400 Heart rate 73 /min Dr. Mata Morrison MD Work Phone: [facility] 11-07-2024 12:59-0400 Respiratory rate 16 /min Dr. Mata Morrison MD Work Phone: [facility] 11-07-2024 12:59-0400 SaO2% (BldA) [Mass fraction] 99 % Dr. Mata Morrison MD Work Phone: [facility] 11-07-2024 12:59-0400 Systolic blood pressure 122 mm[Hg] Dr. Mata Morrison MD Work Phone: [facility] 10-08-2024 12:43-0400 Body temperature 98.4 [degF] Dr. Mata Morrison MD Work Phone: [facility] 10-08-2024 12:43-0400 Body weight 82.[address] Mata Morrison MD Work Phone: [facility] 10-08-2024 12:43-0400 Diastolic blood pressure 60 mm[Hg] Dr. Mata Morrison MD Work Phone: [facility] 10-08-2024 12:43-0400 Heart rate 68 /min Dr. Mata Morrison MD Work Phone: [facility] 10-08-2024 12:43-0400 Respiratory rate 14 /min Dr. Mata Morrison MD Work Phone: [facility] 10-08-2024 12:43-0400 SaO2% (BldA) [Mass fraction] 99 % Dr. Mata Morrison MD Work Phone: [facility] 10-08-2024 12:43-0400 Systolic blood pressure 120 mm[Hg] Dr. Mata Morrison MD Work Phone: [facility] 03-07-2024 08:03-0500 Body height 160.6 cm Dolores Haury CORRECTIVE AND MANUAL ARTS THERAPIST.[facility] Work Phone: [place] [facility] 03-07-2024 08:03-0500 Body mass index (BMI) [Ratio] 30.44 kg/m2 Odlores Haury CORRECTIVE AND MANUAL ARTS THERAPIST.[facility] Work Phone: [facility] 03-07-2024 08:03-0500 Body weight 78.47 kg Dolores Haury CORRECTIVE AND MANUAL ARTS THERAPIST.[facility] Work Phone: [facility] 03-07-2024 08:03-0500 Diastolic blood pressure 64 mm[Hg] Dolores Haury CORRECTIVE AND MANUAL ARTS THERAPIST.[facility] Work Phone: [facility] 03-07-2024 08:03-0500 Systolic blood pressure 110 mm[Hg] Dolores Haury CORRECTIVE AND MANUAL ARTS THERAPIST.[facility] Work Phone: [facility] 02-11-2023 09:40-0500 Body height 160 cm Jenae [place] CORRECTIVE AND MANUAL ARTS THERAPIST.[facility] Work Phone: [facility] 02-11-2023 09:40-0500 Body weight 74.66 kg Jenae Moe CORRECTIVE AND MANUAL ARTS THERAPIST.[facility] Work Phone: [facility] 02-11-2023 09:40-0500 Diastolic blood pressure 60 mm[Hg] Jenae Moe CORRECTIVE AND MANUAL ARTS THERAPIST.[facility] Work Phone: [facility] 02-11-2023 09:40-0500 Systolic blood pressure 90 mm[Hg] Jenae Rosa APRN.CNP Work Phone: [facility] 12-27-2022 07:40-0400 Body height 160.[address] Mata Morrison Work Phone: [facility] 12-27-2022 07:40-0400 Body mass index (BMI) [Ratio] 30.1 kg/m2 Dr. Mata Morrison Work Phone: [facility] 12-27-2022 07:40-0400 Body temperature 98.2 [degF] Dr. Mata Morrison Work Phone: [facility] 12-27-2022 07:40-0400 Body weight 77.[address] Mata Morrison Work Phone: [facility] 12-27-2022 07:40-0400 Diastolic blood pressure 84 mm[Hg] Dr. Mata Morrison Work Phone: [facility] 12-27-2022 07:40-0400 Heart rate 63 /min Dr. Mata Morrison Work Phone: [facility] 12-27-2022 07:40-0400 Respiratory rate 17 /min Dr. Mata Morrison Work Phone: [facility] 12-27-2022 07:40-0400 SaO2% (BldA) [Mass fraction] 98 % Dr. Mata Morrison Work Phone: [facility] 12-27-2022 07:40-0400 Systolic blood pressure 120 mm[Hg] Dr. Mata Morrison Work Phone: [facility] 09-21-2022 12:28-0400 Body height 160.[address] Mata Morrison Work Phone: [facility] 09-21-2022 12:28-0400 Body mass index (BMI) [Ratio] 35.4 kg/m2 Dr. Mata Morrison Work Phone: [facility] 09-21-2022 12:28-0400 Body temperature 97.4 [degF] Dr. Mata Morrison Work Phone: [facility] 09-21-2022 12:28-0400 Body weight 90.[address] Mata Morrison Work Phone: [facility] 09-21-2022 12:28-0400 Diastolic blood pressure 80 mm[Hg] Dr. Mata Morrison Work Phone: [facility] 09-21-2022 12:28-0400 Heart rate 86 /min Dr. Mata Morrison Work Phone: [facility] 09-21-2022 12:28-0400 Respiratory rate 16 /min Dr. Mata Morrison Work Phone: [facility] 09-21-2022 12:28-0400 SaO2% (BldA) [Mass fraction] 99 % Dr. Mata Morrison Work Phone: [facility] 09-21-2022 12:28-0400 Systolic blood pressure 112 mm[Hg] Dr. Mata Morrison Work Phone: [facility] Encounters Encounter Date Encounter Type Care Provider Facility Start: 11-07-2024 End: 11-07-2024 Patient encounter procedure Dat Guo [place] -[facility] Work Phone: Start: 11-07-2024 End: 11-07-[address] Mata Morrison MD Work Phone[facility] Start: 10-16-2024 End: 10-16-[address] Mata Morrison MD Work Phone: -[facility] [place] Start: 10-16-2024 End: 10-16-[address] Roshni Jorgensen MD -[facility] [place] Work Phone: Start: 10-16-2024 End: 10-16-2024 ambulatory Roshni Jorgensen Facility:[facility] Start: 10-08-2024 End: 10-08-[address] Mata Morrison MD Work Phone: -Laboratory [facility] Start: 10-08-2024 End: 10-08-2024 Patient encounter procedure Dat SANDRA -Laboratory [facility]imen Work Phone: Start: 10-08-2024 End: 10-08-2024 Patient encounter procedure Dat Guo [place] [facility] Work Phone: Start: 10-08-2024 End: 10-08-[address] Mata Morrison MD Work Phone: [facility] Start: 10-08-2024 End: 10-08-2024 ambulatory Mata Morrison Facility:[facility] Start: 05-21-2024 End: 05-23-2024 Telephone encounter Dolores Hodge APRN.CNP Work Phone: OB/Gynecology Comment on above: Radiology Mammogram Start: 03-15-2024 End: 03-15-2024 ambulatory Dolores Hodge APRN.[facility] Work Phone: OB/Gynecology Comment on above: Breast Imaging Start: 03-15-2024 End: 03-15-2024 E-mail encounter from caregiver Dolores Hodge APRN.CNP Work Phone: OB/Gynecology Start: 03-12-2024 End: 03-12-2024 Telephone encounter Jenae Rosa APRN.[facility] Work Phone: OB/Gynecology Comment on above: Orders Start: 03-07-2024 End: 03-07-2024 ambulatory DOLORES HODGE Facility:[facility] Start: 03-07-2024 End: 03-07-2024 Subsequent hospital visit by physician Screen Mammo [facility] Mammogram Comment on above: Encounter for screen ing mammogram for malignant neoplasm of breast [Z12.31] Start: 03-07-2024 End: 03-07-2024 Patient encounter procedure Dolores Hodge APRN.[facility] Work Phone: OB/Gynecology Comment on above: Encounter for gyneco logical examination (general) (routine) without abnormal findings (Primary Dx); General counseling for prescription of oral contraceptives; Screening for cervical cancer; Screening for HPV (human papillomavirus); Encounter for screening mammogram for malignant neoplasm of breast; Family history of malignant neoplasm of breast Start: 03-07-2024 End: 03-07-2024 Patient encounter status Dolores Hodge APRN.CNP Work Phone: [facility] Start: 03-07-2024 End: 03-07-2024 ambulatory DOLORES HODGE Facility:[facility] Start: 03-07-2024 Encounter for gynecological examination (general) (routine) without abnormal findings DOLORES HODGE [facility] Start: 01-29-2024 End: 01-30-2024 ambulatory Mata Mtz NP Facility:[facility] Start: 02-11-2023 End: 02-11-2023 Patient encounter procedure Jenae Rosa APRN.CNP Work Phone: OB/Gynecology Comment on above: Encounter for gyneco logical examination (general) (routine) without abnormal findings (Primary Dx); General counseling for prescription of oral contraceptives; Screening for cervical cancer; Encounter for screening for human papillomavirus (HPV) Start: 02-11-2023 End: 02-11-2023 Patient encounter status Jenae Rosa APRN.CNP Work Phone: [facility] Work Phone: Start: 12-27-2022 End: 12-27-[address] Mata Morrison Work Phone: [facility] Work Phone: Start: 12-27-2022 End: 12-27-[address] Mata Morrison Work Phone: [facility]-Laboratory, Specimen Work Phone: Start: 12-27-2022 End: 12-27-[address] Mata Morrison Work Phone: [facility] Work Phone: Start: 09-22-2022 End: 09-22-[address] Mata Morrison Work Phone: [facility] Work Phone: Start: 09-22-2022 End: 09-22-[address] Mata Morrison Work Phone: [facility]-Laboratory, Specimen Work Phone: Start: 09-21-2022 End: 09-21-[address] Mata Morrison Work Phone: [facility] Work Phone: Start: 01-01-2022 [...] DTaP,Tdap,Td Vaccine (2 - Td or Tdap) [facility] Start: 02-12-2024 Screening for malign ant neoplasm of cervix Cervical Cancer Screening [facility] Start: 11-20-2023 Covid-19 Vaccine () Covid-19 Vaccine () [facility] Start: 11-20-2023 Influenza vaccination Influenza Vacc ine (#1) [facility] Start: 12-02-2022 HPV TESTING HPV TESTING [facility] Start: 12-02-2022 PAP TESTING PAP TESTING [facility] Start: 11-19-2022 Covid-19 Vaccine () Covid-19 Vaccine () [facility] Start: 11-19-2022 Influenza vaccination Influenza Vacc ine (#1) [facility] Start: 03-21-2022 Depression Assessment [facility] Start: 11-19-2021 Influenza vaccination INFLUENZA (#1) [facility] Start: 03-21-2021 [facility] Start: 06-25-2020 COVID-19 VACCINE (3 - Booster for Moderna series) COVID-19 VACCINE (3 - Booster for Moderna series) [facility] Start: 08-11-2016 End: 08-11-2016 Appointment Appointment [facility] Work Phone: Start: 08-11-2016 End: 08-11-2016 Appointment Appointment [facility] Work Phone: Start: 08-05-2016 End: 08-05-2016 Appointment Appointment [facility] Work Phone: Start: 2005 Hepatitis B Vaccine (1 of 3 - 19+ 3-dose series) Hepatitis B Vaccine (1 of 3 - 19+ 3-dose series) [facility] Start: 2005 Urine microalbumin profile DTAP,TDAP,TD (1 - Tdap) [facility] Start: 2004 Anxiety Screening Anxiety Screening [facility] Start: 2004 Depression Screening Depression Scre [facility] Start: 2004 HEPATITIS C SCREENING HEPATITIS C [facility] Start: 2004 Hepatitis C screening Hepatitis C [facility] Start: 2004 HIV SCREENING HIV SCREENING [facility] Start: 2004 HIV screening HIV Screening [facility] Start: 1986 HEPATITIS B (1 of 3 - 3-dose series) HEPATITIS B (1 of 3 - 3-dose series) [facility] Start: 1986 Hepatitis B Vaccine (1 of 3 - 3-dose series) Hepatitis B Vaccine (1 of 3 - 3-dose series) [facility] End: 04-06-2025 DBT Breast - bilateral screening ERNA SCREENING [facility] Radiology Routine Encounter for screening mammogram for malignant neoplasm of breast 1 Occurrences starting 03/07/2024 until 04/06/2025 [facility] Work Phone: Comment on above: 1 Occurrences starti ng 03/07/2024 until 04/06/2025 DBT Breast - bilater al screening ERNA SCREENING W [facility] Radiology Routine Encounter for screening mammogram for malignant neoplasm of breast 03/07/2024 10:32 AM [facility] End: 04-11-2025 MG Breast - left Diagnostic for implant ERNA DIAGNOSTIC LEFT Radiology Routine Abnormal mammogram 1 Occurrences starting 03/12/2024 until 04/11/2025 [facility] Comment on above: 1 Occurrences starti ng 03/12/2024 until 04/11/2025 PAP TEST PAP TEST Lab [facility] Encounter for gynecological examination (general) (routine) without abnormal findings Screening for cervical cancer Encounter for screening for human papillomavirus (HPV) 02/11/2023 10:03 AM [facility] Work Phone: End: 04-11-2025 US Breast - left limited US BREAST LTD LEFT Radiology Routine Abnormal mammogram 1 Occurrences starting 03/12/2024 until 04/11/2025 [facility] Work Phone: Comment on above: 1 Occurrences starti ng 03/12/2024 until 04/11/2025 [facility] Immunizations Immunization Date Immunization Notes Care Provider Omayra arriola 10-05-2021 tetanus toxoid, redu yolanda diphtheria toxoid, and acellular pertussis vaccine, adsorbed Jenae [place] CORRECTIVE AND MANUAL ARTS THERAPIST.[facility] Work Phone: [facility] Work Phone: 01-26-2006 influenza virus vaccine, unspecified formulation Sona Zimmer MD Work Phone: [facility] Work Phone: Payers Date Payer Category Payer Self-pay [id number] 2009 [facility] BLUE ACCE SS PPO [id number] 2009 Unknown YULIANA MULLER SS PPO [id number] 2009-Present [phone] [address] [place] [address] PPO [id number] 2009 Unknown [id number] Unknown [facility] [id number] Unknown [id number] Unknown [id number] Unknown [id number] Unknown [id number] Unknown [id number] Unknown [id number] Social History Date Type Detail Facility Start: 08-25-2010 End: 04-15-2023 Tobacco smoking status NHIS Never smoked tobacco [facility] Work Phone: Start: 08-25-2010 End: 02-11-2023 Tobacco use and exposure Smokeless tobacco non-user [facility] Work Phone: Start: 01-31-2021 End: 03-07-2024 Alcohol intake Current drinker of alcohol (finding) [facility] Start: 01-31-2021 End: 02-11-2023 Alcohol intake [facility] Start: 07-13-2016 [facility] Start: 1985 Sex Assigned At Not on file [facility] Start: 09-21-2022 End: 12-27-2022 Tobacco smoking status NHIS Unknown if ever smoked [facility] Start: 1985 Sex Assigned At Female [facility] Start: 02-11-2023 End: 03-07-2024 Tobacco use panel [facility] National Score (1-100), lower number is lower risk 51 [facility] NEGATED: Highlighted rowStart: NINF History of tobacco use Passive smoker [facility] Work Phone: Functional Status Date Assessment Result Facility 02-21-2014 Are you deaf, or do you have serious difficulty hearing No 02/21/2014 9:51 AM Mima Flynn MA No [facility] 02-21-2014 Are you blind, or do you have serious difficulty seeing, even when wearing glasses No 02/21/2014 9:51 AM Mima Flynn MA No [facility] 02-21-2014 Do you have serious difficulty walking or climbing stairs No 02/21/2014 9:51 AM Mima Flynn MA [facility] 02-21-2014 Do you have difficul ty dressing or bathing No 02/21/2014 9:51 AM Mima Flynn MA No [facility] 02-21-2014 Because of a physica l, mental, or emotional condition, do you have difficulty doing errands alone such as visiting a physician's office or shopping No 02/21/2014 9:51 AM Mima Flynn MA [facility] Mental Status Date Assessment Result Facility 02-21-2014 Because of a physica l, mental, or emotional condition, do you have serious difficulty concentrating, remembering, or making decisions No 02/21/2014 9:51 AM Mima Flynn MA No [facility] Clinical Notes 01-30-2014 to 10-17-2024 Note Date & Type Note Facility 10-17-2024 Radiology Diagnostic study note [facility] Imaging Services [address] [place], [place] [address] Acute Abdomen Inc Chest MR#: [id number] Acct: [id number] Name: OZIEL THOMAS Rep #: [id number] : 1985 F 39 From: [employer] MD PCP: Dr. Roshni Jorgensen MD Status: REG CL I Study:Acute Abdomen Inc Chest Date of Exam: 10/16/24 Exam# [id number] Ordering Dr: Claire Jorgensen MD PROCEDURE: ACUTE ABDOMEN INC CHEST 10/16/2024 REASON FOR EXAM: RIGHT FLANK PAIN TECHNIQUE: ACUTE ABDOMEN INC CHEST, five view. 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 Roshni Jorgensen MD ~ Museum Attendant: Signed [facility] 10-08-2024 Progress note [facility] 10-08-2024 Progress note Note Date/Time October 08, 2024 12:56pm [facility] [address], [address] [place] [address] OFFICE VISIT Date of Service: 10/08/24 MR#: [id number] Acct: [id number] Name: OZIEL THOMAS Rep #: [id number] : 1985 Provider: JOCY Carter Age/Sex: 39/F Location: [facility] Status: Signed Intake Vital Signs 01/29/24 10:00 [...] color/ character of stool; cloudy urine. No aqnp-ygo-[id number] products taken to assist. No other associated [...] on 10/08/24 12 :50 Off Ur Spec [place] 1.005 Last Edit by Prachi Zamora MA [...] Cosigner Signature: Date (if applicable) CC: ~ [employer] Work Phone: [phone] Telephone encounter Note* Telephone Encounter - Deisy Washington RN - 05/23/2024 2:22 PM EST 3rd attempt. Patient has not read [employer] message. Left message for patient to call office or checkmychart message. Letter sent. Deisy Washington RN [facility]03-05-2025 Miscellaneous Notes* Telephone Encounter - Deisy Washington RN - 05/23/2024 2:22 PM EST 3rd attempt. Patient has not read [employer] message. Left message for patient to call [...] has beencompleted. Please have your patient call [phone] or ext. [phone] to schedule a breast imaging exam appointment for additional evaluation. Please ensure that you have placed either an electronic or hard copy order for the additional exam recommended from the screening mammogram report. We understand that this is an inconvenience to you and greatly appreciate your cooperation. If your patient has already scheduled an appointment, please disregard this letter. Sincerely, [facility] Breast Imaging documented [facility]03-[facility]25 Telephone encounter Note * Telephone Encounter - Deisy Washington RN - 05/22/2024 10:09 AM EST Left message for patient to call office or check mychart message. Deisy Washington RN [facility]03-03-2025 Telephone encounter Note* Telephone Encounter - [...] has beencompleted. Please have your patient call [phone] or [phone]. [phone] to schedule a breast imaging exam appointment for additional evaluation. Please ensure that you have placed either an electronic or hard copy order for the additional exam recommended from the screening mammogram report. We understand that this is an inconvenience to you and greatly appreciate your cooperation. If your patient has already scheduled an appointment, please disregard this letter. Sincerely, [facility] Breast Imaging [facility]12-18-2024 History of Present illness Narrative* Catie [...] PATIENT PRESENTS WITH AN IMPLANTABLE OR ATTACHED SECOND HAND PAPER MACHINE: No RADIOLOGY DEPARTMENT: Mammography PERIPHERAL IV DATA: Not applicable SIGNED BY: Trisha Rob March 07, 2024 9:47 AM documented in this encounterToledo Hospital12-18-2024 NoteHNO ID: [id number] Author: CATIE HAMM Mammo Tech Service: ? Author Type: Hydroelectric Plant Maintainer Type: Progress Notes Filed: 03/07/2024 09:47 Note [...] PATIENT PRESENTS WITH AN IMPLANTABLE OR ATTACHED SECOND HAND PAPER MACHINE: No RADIOLOGY DEPARTMENT: Mammography PERIPHERAL IV DATA: Not applicable SIGNED BY: Trisha Rob March 07, 2024 9:47 [facility]12-18-2024 Instructions* Patient Instructions* Dolores Hodge APRN.[facility] - 03/07/2024 8:14 AM EST To schedule an appointment please either: Use the [employer] Self Scheduling Ticket you may receive OR Call [phone], Option 2 to schedule. For information pertaining to genetics services at the [facility], you can visit us online [email or web address] [...] repeated (no maximum interval). documented in this encounterToledo Hospital12-18-2024 NoteHNO ID: [id number] Author: DOLORES HODGE APRN.LAILA Service: ? Author Type: Nurse Practitioner Type: Progress Notes Filed: 03/07/2024 08:31 Note Text: Cold Mill Operator offered: Patient declines. Oziel is a 38 [...] L2 SAB0 IAB0 Ectopic0 Multiple0 Live Births2 Blankbook Forwarder History LMP: 02/08/2024 (Exact Date), Having periods Age at Menarche: Age at First : Age at Menopause: Blankbook Forwarder History Comments: Sexual Activity: Yes; Male Contraception: [...] discussed with the Patient or Patient's Authorized Traffic Rate Computer. As applicable, any other physician, advance practice provider, medical student, or other health professional student that will be observing or involved in the sensitive examination for educational or training purposes was discussed with the Patient or Authorized Traffic Rate Computer. The Patient or Authorized Traffic Rate Computer has agreed to proceed with the sensitive [...] bilateral labia majora, normal Bartholin's glands, urethra, Arcadia's glands, + 3 mm raised mole to [...] of malignant neoplasm o (more content not included)...[facility]12-18-2024 History of Present illness Narrative* Dolores Hodge APRN.[facility] - 03/07/2024 7:59 AM EST Cold Mill Operator offered: Patient declines. Oziel is a 38 [...] L2 SAB0 IAB0 Ectopic0 Multiple0 Live Births2 Blankbook Forwarder History LMP: 02/08/2024 (Exact Date), Having periods Age at Menarche: Age at First : Age at Menopause: Blankbook Forwarder History Comments: Sexual Activity: Yes; Male Contraception: [...] discussed with the Patient or Patient's Authorized Traffic Rate Computer. As applicable, any other physician, advance practice provider, medical student, or other health professional student that will be observing or involved in the sensitive examination for educational or training purposes was discussed with the Patient or Authorized Traffic Rate Computer. The Patient or Authorized Traffic Rate Computer has agreed to proceed with the sensitive [...] bilateral labia majora, normal Bartholin's glands, urethra, Arcadia's glands, + 3 mm raised mole to [...] notify and will obtain ultrasound. Dolores Hodge APRN.[facility] documented [facility]11-24-[facility]23 History of Present illness Narrative* Jenae Rosa APRN.CNP - 02/11/2023 9:40 AM EST Cold Mill Operator offered: Patient declines. Oziel is a 37 [...] L2 SAB0 IAB0 Ectopic0 Multiple0 Live Births2 Blankbook Forwarder History LMP: 01/19/2023 (Exact Date), Having periods Age at Menarche: Age at First : Age at Menopause: Blankbook Forwarder History Comments: Sexual Activity: Yes; Male Contraception: [...] external genitalia normal, normal Bartholin's glands, urethra, Arcadia's glands, no vulvar lesions, no cervical lesions, [...] needed Jenae Rosa APRN.LAILA documented in this encounterToledo Hospital10-14-2022 Miscellaneous Notes* Telephone Encounter - Claire [...] pharmacy. Claire Barillas RN documented in this encounterToledo Hospital11-12-2014 History of Past illness Narrative* Problem Noted Date Resolved Date Nipple discharge 01/30/2014 07/13/2016 Excessive growth affec ting management of mother, antepartum 12/05/2007 12/29/2007 Supervision of normal first 04/11/2007 12/29/2007 documented as of this encounter (statuses as of 01/01/2022) [facility]11-12-2014 History of Past illness Narrative* Problem Noted Date Diagnosed Date Resolved Date Nipple discharge 01/30/2014 07/13/2016 Excessive growth affec ting management of mother, antepartum 12/05/2007 12/29/2007 Supervision of normal first 04/11/2007 12/29/2007 documented as of this encounter (statuses as of 02/11/2023) [facility] Diagnosis General counseling for prescription of oral contraceptives [facility] Diagnosis Onset Date Resolution Status Cystitis acute [facility] Work Phone: Evaluation note* Diagnosis Onset Date Resolution Status Cystitis acute UTI (urinary tract infection) acute [facility] Work Phone: Evaluation note* Diagnosis Encounter for gynecological examination (general) (routine) without abnormal findings- Primary General counseling for prescription of oral contraceptives Screening for cervical cancer Screening for malignant neoplasm of the cervix Encounter for screening for human papillomavirus (HPV) Special screening examination for human papillomavirus (HPV) documented in this encounter [facility] note* Diagnosis Encounter for gynecological examination [...] neoplasm of breast documented in this encounter [facility] note* Diagnosis Encounter for screening mammogram for malignant neoplasm of breast Other screening mammogram documented in this encounter [facility] note* Diagnosis Abnormal mammogram- Primary Abnormal mammogram, unspecified documented in this encounter [facility] noteNo assessment [facility] Work Phone: Reason for referral (narrative)* Diagnostic Procedure Only (Routine) - New Request Specialty Diagnoses / Procedures Referred By Sindy naidu Referred To Contact [facility] Diagnoses Abnormal mammogram Procedures ERNA DIAGNOSTIC LEFT DIAGNOSTIC MAMMOGRAPHY COMPUTER-AIDED DETCJ UNI Jenae Rosa APRN.CNP [address] [place] [address] [facility] [address] [place] [id number] Referral ID Status Reason Start Date Expiration Date Visits Requested Visits Authorized [id number] New Request Auto-Generat ed Referral 4 04/11/2025 1 1 * Diagnostic Procedure Only (Routine) - New Request Specialty Diagnoses / Procedures Referred By Sindy naidu Referred To Contact [facility] Diagnoses Abnormal mammogram Procedures US BREAST LTD LEFT US BREAST UNI REAL TIME WITH IMAGE LIMITED Jenae Rosa APRN.CNP [address] [place] [address] [facility] [address] [place] [address] Referral ID Status Reason Start Date Expiration Date Visits Requested Visits Authorized [id number] New Request Auto-Generat ed Referral 04/11/2025 1 1 [facility]No reason for referral information availableKearsarge DRB Systems Services Work Phone: Reason for visit Narrative* Diagnostic Procedure Only (Routine) - Closed Specialty Diagnoses / Procedures Referred By Sindy naidu Referred To Contact [facility] Diagnoses Encounter for screening mammogram for malignant neoplasm of breast Procedures ERNA SCREENING W ARNULFO SCREENING DIGITAL BREAST TOMOSYNTHESIS BI SCREENING MAMMOGRAPHY BI 2-VIEW BREAST INC CAD Dolores Hodge APRN.CNP [address] [place] [address] [facility] [employer] [place] [address] Referral ID Status Reason Start Date Expiration Date V isits Requested Visits Authorized [id number] Closed Auto-Generate d Referral 03/07/2024 04/06/2025 1 1 [facility] Chief Complaint and Reason for Visit [...] CONSULT TO MEDICAL GENETICS - GENERAL OFFICE/OUTPATIENT [facility] 60 MINUTES MEDICAL GENETICS COUNSELING EACH 30 MINUTES Dolores Hodge APRN.CNP [address] [place] [address] [facility] [address] [place] [address] Referral ID Status Reason Start Date Expiration Date Visits Requested Visits Authorized [id number] Pending Review PCP Requested Referral Auto-Generate d Referral 03/07/2025 1 1 Specialty Diagnoses / Procedures Referred By Contac t Referred To Contact [facility] Diagnoses Encounter for screening mammogram for malignant neoplasm of breast Procedures ERNA SCREENING W ARNULFO SCREENING DIGITAL BREAST TOMOSYNTHESIS BI SCREENING MAMMOGRAPHY BI 2-VIEW BREAST INC CAD Fernandomanolo Dolores, CORRECTIVE AND MANUAL ARTS THERAPIST.[facility] [address] [place] [address] [facility] [address] [place] [address] Referral ID Status Reason Start Date Expiration Date V isits Requested Visits Authorized [id number] Closed Auto-Generate d Referral 03/07/2024 04/06/2025 1 [...] or prosecute any alcohol or drug abuse patient.[facility] the event this information is protected by the Federal Confidentiality of Alcohol and Drug Abuse Patient Records regulations: The Federal rules restrict any use of the information to criminally investigate or prosecute any alcohol or drug abuse patient.[facility] the event this information is protected by the Federal Confidentiality of Alcohol and Drug Abuse Patient Records regulations: The Federal rules restrict any use of the information to criminally investigate or prosecute any alcohol or drug abuse patient.[facility]In the event this information is protected by the Federal Confidentiality of Alcohol and Drug Abuse Patient Records regulations: The Federal rules restrict any use of the information to criminally investigate or prosecute any alcohol or drug abuse patient.[facility] the event this information is protected by the Federal Confidentiality of Alcohol and Drug Abuse Patient Records regulations: The Federal rules restrict any use of the information to criminally investigate or prosecute any alcohol or drug abuse patient.[facility]In the event this information is protected by the Federal Confidentiality of Alcohol and Drug Abuse Patient Records regulations: The Federal rules restrict any use of the information to criminally investigate or prosecute any alcohol or drug abuse patient.[facility]In the event this information is protected by the Federal Confidentiality of Alcohol and Drug Abuse Patient Records regulations: The Federal rules restrict any use of the information to criminally investigate or prosecute any alcohol or drug abuse patient.[facility] Reason for Visit (unrecogniz ed section [...] section and content) DATE CREATED AUTHOR 05/25/2024 [facility] DATE CREATED AUTHOR AUTHOR'S EBRNARD ATION 11/11/2024 [facility] FOR RECORDS PERTAINING TO PATIENTS WHO [...] BE BASED ON THE PRIMARY CLINICAL RECORDS. [facility] [employer] [facility]. provides no warranty or guarantee of the accuracy or completeness of information in this document.
[2025-03-19 22:21] VITALS: RESP 15; O2SAT 97; BMI 34.9
[2025-03-19 22:56] VITALS: BP 117/58; PULSE 83; RESP 15; TEMP 37.2; O2SAT 96
[2025-03-20] MEDS: 0.9% Normal Saline (1000mL) 1,000 ML 125 ML IV ×2 (00:29→08:58)
[2025-03-20] MEDS: Ketorolac 30 MG/ML Syringe IV ×2 (00:29→06:31)
[2025-03-20 04:26] VITALS: BP 90/50; PULSE 63; RESP 15; TEMP 36.2; O2SAT 97
[2025-03-20 06:22] VITALS: BP 107/68; PULSE 69; RESP 15; TEMP 36.6; O2SAT 98
--- NOTE | 2025-03-20 06:35 | US_ITS ---
PROCEDURE: PELVIC (NON ) 03/20/2025 REASON FOR EXAM: LLQ PAIN. RE-EVALUATE OVARY TECHNIQUE: Procedure Code: USPEL Modality: US Procedure: PELVIC (NON ) COMPARISON: Ultrasound dated 03/19/2025. CT dated 03/19/2025. FINDINGS: The uterus measures 9.7 x 5.7 x 4.4 cm. No focal lesion. The endometrium measures 6 mm in thickness, within normal limits. Both ovaries are identified. The right ovary measures 3.1 x 2.2 x 2.0 cm, in the left ovary measures 3.6 x 2.5 x 2.4 cm. Color Doppler blood flow is demonstrated within both ovaries. In the left adnexa adjacent to the left ovary, there is a hypoechoic mass-like area that measures 4.1 x 2.7 x 2.5 cm. No free fluid within the pelvis. US/Pelvic (Non ) IMPRESSION: Left adnexal hypoechoic masslike area, as described above. A similar appearanc e is noted on the previous ultrasound, however this mass-like area was reported as a part of the left ovary. Further evaluati on with an MRI may be beneficial. Reading [id number]
--- NOTE | 2025-03-20 06:37 | PCM.HP.OB ---
HPI - General General Date of Admission: 03/19/25 Date of Service: 03/20/25 Chief Complaint: LLG pain HPI Narrative CIELO THOMAS, is a 39 F who presents to ED with pain for almost a week. Currently on her period. Has been taking Tylenol and Motrin at home with some relief. CT in ED showed left ovarian cyst but no measurements provided. US with 4 x 5 left ovary with normal blood flow noted. cannot rule out torsion. Patient admitted for observation and pain management. Slept over night with Toradol. Morphine given in ED only. Some nausea no vomiting. Thought she had a UTI [facility] Medical History UTI (urinary tract infection) Elevated C-reactive protein (CRP) Hemorrhoids Right upper quadrant abdominal pain with positive Knapp's Sign Diarrhea Nausea Abdominal pain Home Medications ?Medication ?Instructions ?Recorded ?Last Taken ?Type NK 03/19/25 Unknown History Allergy/AdvReac Type Severity Reaction Status Date / Time No Known Allergies Allergy Verified 03/19/25 18:42 Family History Mother Skin cancer Ovarian cancer Father Bladder cancer Surgical History History of Hx of hernia repair Social History (Updated 03/19/25 @ 18:57 by Dolores Mills) housing: house Smoking Status: Never smoker second hand exposure: No alcohol intake: never substance use type: does not use caffeine: Yes what type of physical activity do you participate in: walking frequency: 3-4 times per week ROS Constitutional Constitutional: Denies fatigue, fever(s) or malaise ENT HEENT: Denies headache(s) Cardiovascular Cardiovascular: Denies chest pain, dyspnea or lightheadedness Gastrointestinal Gastrointestinal: Denies change in bowel habits Neurologic Neurologic: Denies headache(s) Vital Signs Vital Signs Vital Signs: 03/19/25 18:41 03/19/25 21:05 03/19/25 21:39 Temperature 97.4 F L 98.4 F 98.4 F Temperature Source Temporal Oral Pulse Rate 77 104 H 97 Respiratory Rate 15 16 18 Respiratory Effort Respiratory Depth Respiratory Pattern Blood Pressure 147/68 H 124/79 H 126/85 H Blood Pressure Mean 94 94 98 Blood Pressure Source Blood Pressure Position Blood Pressure Location Pulse Ox 100 100 99 Oxygen Delivery Method Room Air Room Air 03/19/25 22:21 03/19/25 22:56 03/20/25 03:40 Temperature 98.9 F Temperature Source Temporal Pulse Rate 83 Respiratory Rate 15 15 Respiratory Effort Normal Non-Labored Normal Non-Labored Respiratory Depth Normal Normal Respiratory Pattern Normal Normal Blood Pressure 117/58 L Blood Pressure Mean 77 Blood Pressure Source Monitor Blood Pressure Position Supine Blood Pressure Location Right Arm Pulse Ox 97 96 Oxygen Delivery Method Room Air Room Air Room Air 03/20/25 04:26 03/20/25 06:22 Temperature 97.1 F L 97.9 F Temperature Source Temporal Temporal Pulse Rate 63 69 Respiratory Rate 15 15 Respiratory Effort Respiratory Depth Respiratory Pattern Blood Pressure 90/50 L 107/68 Blood Pressure Mean 63 81 Blood Pressure Source Monitor Monitor Blood Pressure Position Semi-Fowlers Semi-Fowlers Blood Pressure Location Right Arm Right Arm Pulse Ox 97 98 Oxygen Delivery Method Room Air Room Air Weight Weight: 86.8 kg Body Mass Index (BMI) 34.9 Physical Exam Const alert, oriented x3 and no apparent distress General Appearance: cooperative and comfortable HEENT normocephalic Head and Scalp: atraumatic Eyes PERRL and EOMs intact bilaterally Resp normal respiratory effort Cardio regular rate GI soft to palpation and non-distended Palpation: tender Positive for LLQ Extremity normal to inspection Skin no rashes or lesions noted Neuro no focal motor deficits Labs Labs Labs: Hct, (37-47) 37.6 % Hgb, (12.0-15.0) 12.1 g/dL Hep Bs Antigen, (Nonreactive) Non-Reactive Hepatitis C Antibody, (Nonreactive) Non-Reactive Assessment & Plan (1) Abdominal pain: QUALIFIERS: Abdominal location: left lower quadrant Qualified Code(s): R10.32 - Left lower quadrant pain PLAN: Plan Pain management with Toradol. Repeat US
[2025-03-20 07:56] VITALS: PULSE 65; RESP 17
[2025-03-20 07:59] VITALS: BP 117/75; PULSE 70; RESP 18; TEMP 36.8; O2SAT 98
[2025-03-20 08:01] VITALS: BP 117/75; PULSE 70; RESP 18; TEMP 36.8; O2SAT 98
[2025-03-20 12:13] VITALS: BP 132/82; PULSE 75; RESP 17; TEMP 36.8; O2SAT 98
--- NOTE | 2025-03-20 13:01 | NURSING ---
patient educated on d/c instructions iv is removed catheter intact bleeding controlled. follow ups reviewed patient verbalized no further questions
== END 2025-03-20 13:03 | disposition home or self-care (01) ==
LOC: ED 19:13 → MS3 21:57
PROVIDERS: Admitting Provider Obstetrics & Gynecology; Emergency Provider Surgery; PCP Family Medicine; Visit Provider Obstetrics & Gynecology
DX: R10.A2 Flank pain, left side (principal); R82.81 Pyuria; R11.0 Nausea; N83.8 Other noninflammatory disorders of ovary, fallopian tube and broad ligament; R10.32 Left lower quadrant pain
CPT/HCPCS: 74176; 76830; 76856; 80053; 81001; 81025; 83690; 85025; 87086; 87088; 96361; 96374; 96375; 96376; 99221; 99283; A4216; G0378; J2405